=== PATIENT | male | born 1955 | race Caucasian/White ===

== ENCOUNTER 2017-10-15 13:09 | Inpatient (IN) | payer OTHER ==
--- NOTE | 2017-10-15 14:53 | ER Document Report ---
ED Medical Screen (RME) - General Chief Complaint: Breathing Difficulty Stated Complaint: DIFFICULTY BREATHING Time Seen by Provider: 10/15/17 14:45 Notes: 62-year-old male patient with no past medical history reports coughing for the past 6 days. This started on Sunday, he went to an urgent care on and was told he had congestive heart failure and was prescribed Zithromax. He did notice today getting ready that he has swelling to his feet and ankles. He does smoke one half packs per day. He drinks 4-5 beers on a daily basis. He is on no regular medications. His exam does suggest some rales in the bases. I have greeted and performed a rapid initial assessment of this patient. A comprehensive ED assessment and evaluation of the patient, analysis of test results and completion of the medical decision making process will be conducted by additional ED providers. TRAVEL OUTSIDE OF THE [place] IN LAST 30 DAYS: No - Related Data Allergies/Adverse Reactions: No Known Allergies Allergy (Verified 10/15/17 13:10) Past Medical History - Social History Chew tobacco use (# tins/day): No Frequency of alcohol use: Heavy Drug Abuse: None Renal/ Medical History: Denies: Hx Peritoneal Dialysis Physical Exam - Vital signs Vitals: Temp Pulse Resp BP Pulse Ox 97.7 F 83 20 125/51 L 100 10/15/17 13:15 10/15/17 13:15 10/15/17 13:15 10/15/17 13:15 10/15/17 13:15 Course - Vital Signs Vital signs: Temp Pulse Resp BP Pulse Ox 97.7 F 83 20 125/51 L 100 10/15/17 13:15 10/15/17 13:15 10/15/17 13:15 10/15/17 13:15 10/15/17 13:15
[2017-10-15 15:32] LABS: ABSOLUTE BASOPHILS # (AUTO) 0.1 10^3/uL (0.0-0.2); ABSOLUTE EOSINOPHILS # (AUTO) 0.1 10^3/uL (0.0-0.6); ABSOLUTE LYMPHOCYTES (AUTO) 1.9 10^3/uL (0.5-4.7); ABSOLUTE MONOCYTES (AUTO) 0.9 10^3/uL (0.1-1.4); ABSOLUTE NEUT (AUTO) 11.4 10^3/uL (1.7-8.2); BASOPHILS % (AUTO) 0.5 % (0-2); EOSINOPHILS % (AUTO) 0.4 % (0-6); HEMATOCRIT 45.6 % (37.9-51.0); HEMOGLOBIN 15.7 g/dL (13.5-17.0); LYMPHOCYTES % (AUTO) 13.2 % (13-45); MEAN CORPUSCULAR HEMOGLOBIN 31.9 pg (27.0-33.4); MEAN CORPUSCULAR HGB CONC 34.4 g/dL (32.0-36.0); MEAN CORPUSCULAR VOLUME 93 fl (80-97); MONOCYTES % (AUTO) 6.5 % (3-13); PLATELET COUNT 154 10^3/uL (150-450); RED BLOOD COUNT 4.92 10^6/uL (4.35-5.55); RED CELL DISTRIBUTION WIDTH 14.6 % (11.5-14.0); SEGMENTED NEUTROPHILS % (AUTO) 79.4 % (42-78); TOTAL CELLS COUNTED % (AUTO) 100 %; WHITE BLOOD COUNT 14.4 10^3/uL (4.0-10.5)
[2017-10-15 15:41] LABS: ALBUMIN 3.8 g/dL (3.5-5.0); ALKALINE PHOSPHATASE 246 U/L (38-126); BILIRUBIN,DIRECT 1.7 mg/dL (0.0-0.4); BILIRUBIN,TOTAL 2.7 mg/dL (0.2-1.3); BLOOD UREA NITROGEN 60 mg/dL (7-20); CARBON DIOXIDE 26 mmol/L (22-30); CHLORIDE 79 mmol/L (98-107); CREATINE KINASE 398 U/L (55-170); GLUCOSE 77 mg/dL (75-110); MAGNESIUM 2.6 mg/dL (1.6-2.3); POTASSIUM 4.8 mmol/L (3.6-5.0); TOTAL PROTEIN 6.6 g/dL (6.3-8.2)
[2017-10-15 15:48] LABS: ANION GAP 12 (5-19)
[2017-10-15 15:53] LABS: CREATINE KINASE MB 11.9 ng/mL (<4.55)
[2017-10-15 15:57] LABS: TROPONIN I 0.086 ng/mL
--- NOTE | 2017-10-15 16:03 | RADIOLOGY REPORT (SQ) ---
EXAM DESCRIPTION: CHEST PA/LAT COMPLETED DATE/TIME: 10/15/2017 3:48 pm REASON FOR STUDY: Cough, rales, peripheral edema COMPARISON: None. NUMBER OF VIEWS: Two views. TECHNIQUE: Frontal and lateral radiographic views of the chest acquired. LIMITATIONS: None. FINDINGS: LUNGS AND PLEURA: Mild diffuse interstitial edema with more focal right lower lobe airspac e disease with small right pleural effusion. Left pleural spaces clear. MEDIASTINUM AND HILAR STRUCTURES: No masses or contour abnormality. HEART AND VASCULAR STRUCTURES: Cardiac enlargement. Vascular congestion. BONES: No acute findings. HARDWARE: None in the chest. OTHER: No other significant finding. LUNGS AND PLEURA: Right lower lobe airspace disease with small pleural effusion. IMPRESSION: MILD INTERSTITIAL EDEMA WITH ADDITIONAL RIGHT LOWER LOBE AIRSPACE DISEASE AND SMALL RIGH T PLEURAL EFFUSION MAY REPRESENT SUBSEGMENTAL ATELECTASIS OR SUPERIMPOSED PNEUMONIA. TECHNICAL DOCUMENTATION: JOB ID: [id number] [employer]- All Rights Reserved
[2017-10-15 16:09] LABS: ALANINE AMINOTRANSFERASE 3125 U/L (21-72); ASPARTATE AMINO TRANSFERASE 2430 U/L (17-59)
[2017-10-15 16:11] LABS: SODIUM 117.2 mmol/L (137-145)
[2017-10-15] MEDS ORDERED: FUROSEMIDE INJ/PF 40 MG/4 ML SDV IV ONE (16:24)
--- NOTE | 2017-10-15 16:27 | ER Document Report ---
ED Respiratory Problem - General Chief Complaint: Breathing Difficulty Stated Complaint: DIFFICULTY BREATHING Time Seen by Provider: 10/15/17 14:45 Mode of Arrival: Ambulatory Information source: Patient Notes: Patient is a 62-year-old male who presents to the ER today for shortness of breath times 6 days with productive cough. Patient states he went to the urgent care and was told he had congestive heart failure and was placed on azithromycin. Patient states that his shortness of breath has continued and that he has swelling in his lower extremities. He does not go to doctors, has not been to a doctor in many years and does not take any medicines on a daily basis. He denies any chest pain or nausea. He admits to drinking 4-5 beers every day. He last drank this morning. TRAVEL OUTSIDE OF THE [place] IN LAST 30 DAYS: No - Related Data Allergies/Adverse Reactions: No Known Allergies Allergy (Verified 10/15/17 13:10) Past Medical History - General Information source: Patient - Social History Smoking Status: Current Every Day Smoker Chew tobacco use (# tins/day): No Frequency of alcohol use: Heavy Drug Abuse: None Family History: Reviewed & Not Pertinent Patient has suicidal ideation: No Patient has homicidal ideation: No Renal/ Medical History: Denies: Hx Peritoneal Dialysis Review of Systems - Review of Systems Constitutional: See HPI EENT: No symptoms reported Cardiovascular: No symptoms reported Respiratory: See HPI Gastrointestinal: No symptoms reported Genitourinary: No symptoms reported Male Genitourinary: No symptoms reported Musculoskeletal: No symptoms reported Skin: See HPI Hematologic/Lymphatic: No symptoms reported Neurological/Psychological: See HPI Physical Exam - Vital signs Vitals: Temp Pulse Resp BP Pulse Ox 97.7 F 83 20 125/51 L 100 10/15/17 13:15 10/15/17 13:15 10/15/17 13:15 10/15/17 13:15 10/15/17 13:15 - Notes Notes: PHYSICAL EXAMINATION: GENERAL: Chronically ill-appearing, but in no acute distress. HEAD: Atraumatic, normocephalic. EYES: Pupils equal round and reactive to light, extraocular movements intact, sclera anicteric, conjunctiva are normal. ENT: ear canals without erythema or foreign body, TMs pearly holley with good bony landmarks, nares patent, oropharynx clear without exudates. Moist mucous membranes. NECK: Normal range of motion, supple without lymphadenopathy LUNGS: Rales appreciated in bilateral lower lobes,No wheezes or rhonchi. HEART: Regular rate and rhythm without murmurs ABDOMEN: Soft, no tenderness. No guarding, no rebound BACK: no vertebral tenderness, normal ROM GI/: no CVA tenderness EXTREMITIES: Normal range of motion, no pitting edema. No cyanosis. NEUROLOGICAL: Cranial nerves grossly intact. Normal sensory/motor exams. PSYCH: Normal mood, normal affect. SKIN: Warm, Dry, normal turgor, 1+ pitting edema to bilateral lower extremities Course - Re-evaluation Re-evalutation: 10/15/17 18:00 Patient has a white count of 14.4, sodium of 117, mild edema with possible pneumonia on chest x-ray, pitting edema to the lower extremities. I have started him on Lasix. Patient also has elevated AST and ALT in the 1999s and 3000s. Hepatitis panel at this time has been ordered, right upper quadrant ultrasound to evaluate his liver. BNP is 9500. Troponin is elevated but expected with congestive heart failure and this BNP. Patient denies any chest pain. Patient admitted to Dr. thomas who accepts admission at this time. - Vital Signs Vital signs: Temp Pulse Resp BP Pulse Ox 97.7 F 83 20 125/51 L 100 10/15/17 13:15 10/15/17 13:15 10/15/17 13:15 10/15/17 13:15 10/15/17 13:15 - Laboratory Result Diagrams: 10/15/17 15:18 10/15/17 15:18 Laboratory results interpreted by me: 10/15/17 10/15/17 10/15/17 15:18 15:18 15:18 WBC 14.4 H RDW 14.6 H Seg Neutrophils % 79.4 H Absolute Neutrophils 11.4 H Sodium 117.2 L* Chloride 79 L BUN 60 H Magnesium 2.6 H Total Bilirubin 2.7 H Direct Bilirubin 1.7 H AST 2430 H ALT 3125 H Alkaline Phosphatase 246 H Creatine Kinase 398 H CK-MB (CK-2) 11.90 H NT-Pro-B Natriuret Pep 9510 H Discharge - Discharge Clinical Impression: Elevated liver enzymes, Hyponatremia CHF (congestive heart failure) Qualifiers: Congestive heart failure type: unspecified congestive heart failure type Congestive heart failure chronicity: chronic Qualified Code(s): I50.9 - Heart failure, unspecified Condition: Stable Disposition: ADMITTED INPATIENT Admitting Provider: Hospitalist - Dr. Thomas Unit Admitted: Telemetry
[2017-10-15] MEDS ORDERED: LORAZEPAM INJ 2 MG/1 ML VIAL IV PRN (17:49)
[2017-10-15] MEDS ORDERED: OXYCODONE-ACETAMINOPHEN 5-325 MG TABLET PO PRN (17:49)
[2017-10-15] MEDS ORDERED: ALBUTEROL SULFATE 0.083% NEB 2.5 MG/3 ML AMPUL NEB PRN (17:49)
[2017-10-15] MEDS ORDERED: NORMAL SALINE 1000 ML 1,000 ML IV PRN ×2 (17:49→20:04)
[2017-10-15] MEDS ORDERED: ONDANSETRON HCL INJ/PF 4 MG/2 ML SDV IV PRN (17:49)
[2017-10-15] MEDS ORDERED: THIAMINE HCL INJ 200 MG/2 ML VIAL IM ONE (17:49)
[2017-10-15] MEDS ORDERED: ACETAMINOPHEN 325 MG TABLET PO PRN (17:49)
[2017-10-15] MEDS ORDERED: DIAZEPAM 5 MG TABLET PO SCH (18:00)
[2017-10-15] MEDS ORDERED: MULTIVITAMIN TABLET PO ONE (18:30)
[2017-10-15] MEDS ORDERED: NICOTINE 21 MG/24 HR PATCH.TD24 TD ONE (18:30)
[2017-10-15 18:32] LABS: INTERNATIONAL RATION (INR) 1.51; PROTHROMBIN TIME 19.2 SEC (11.4-15.4)
--- NOTE | 2017-10-15 18:44 | PDOC H&P ---
History of Present Illness Admission Date/PCP: 10/15/17 16:55 Patient complains of: Shortness of breath and cough for several days History of Present Illness: SONA JAQUEZ is a 62 year old male presented to emergency room after was advised by a local urgent care to come to emergency room for further evaluation. Patient stated that he had been having shortness of breath, productive cough, weakness for several days. He was initially placed on an antibiotic which appears to be Zithromax. Since he did not improve returned back to urgent care and was told he needed to come to urgent care for further evaluation. At that time it was noted that his legs were swollen however patient is unable to tell how long he has been having swelling of his legs. He admits that he had been sleeping close to an burner. When he coughs he is experiencing pain in the right thigh. He admits that he smokes 1-1/2 pack of cigarettes daily and has been going on for the past 35 years. He also drinks around 8 beers daily. He also admits that if he does drink on a daily basis he gets the shakes. He denies any medical illnesses. Patient also complains of pain in the right side of his stomach When evaluated in the emergency room there were multiple abnormalities prompted to consult the hospitalist service and open evaluation prompted to admit for further evaluation and management Past Medical History Cardiac Medical History: Reports: None Pulmonary Medical History: Reports: None EENT Medical History: Reports: None Neurological Medical History: Reports: None Endocrine Medical History: Reports: None Renal/ Medical History: Reports: None Malignancy Medical History: Reports: None GI Medical History: Reports: None Musculoskeltal Medical History: Reports: None Skin Medical History: Reports: None Psychiatric Medical History: Reports: None Traumatic Medical History: Reports: None Hematology: Reports: None Infectious Medical History: Reports: None Past Surgical History Past Surgical History: Reports: None Social History Information Source: Patient Lives with: Alone Smoking Status: Current Every Day Smoker Cigarettes Packs Per Day: 1.5 Number of Years Smokin Frequency of Alcohol Use: Heavy Amount of Alcoholic Beverages Per Day: 8 beers/day Hx Recreational Drug Use: No Drugs: None Hx Prescription Drug Abuse: No - Advance Directive Resuscitation Status: Full Code Family History Family History: Malignancy Parental Family History Reviewed: Yes Children Family History Reviewed: Yes Sibling(s) Family History Reviewed.: Yes Medication/Allergy Allergies/Adverse Reactions: No Known Allergies Allergy (Verified 10/15/17 13:10) Review of Systems Constitutional: PRESENT: weakness Eyes: ABSENT: visual disturbances Ears: ABSENT: hearing changes Nose, Mouth, and Throat: ABSENT: mouth pain, sore throat Cardiovascular: PRESENT: dyspnea on exertion. ABSENT: chest pain Respiratory: PRESENT: cough, dyspnea Gastrointestinal: PRESENT: abdominal pain. ABSENT: nausea, vomiting Musculoskeletal: PRESENT: deformity, muscle weakness, other - right thigh pain Neurological: PRESENT: weakness Physical Exam Vital Signs: Temp Pulse Resp BP Pulse Ox 97.7 F 83 20 125/51 L 100 10/15/17 13:15 10/15/17 13:15 10/15/17 13:15 10/15/17 13:15 10/15/17 13:15 General appearance: PRESENT: no acute distress, cooperative, thin Head exam: PRESENT: atraumatic, normocephalic Eye exam: PRESENT: conjunctiva pink, EOMI, PERRLA. ABSENT: periorbital swelling Ear exam: PRESENT: normal external ear exam. ABSENT: bleeding Mouth exam: PRESENT: dry mucosa, neck supple Neck exam: PRESENT: full ROM. ABSENT: JVD, lymphadenopathy, tenderness, thyromegaly Respiratory exam: PRESENT: decreased breath sounds, rhonchi. ABSENT: tachypnea , unlabored, wheezes Cardiovascular exam: PRESENT: RRR. ABSENT: diastolic murmur, systolic murmur Vascular exam: PRESENT: normal capillary refill GI/Abdominal exam: PRESENT: normal bowel sounds, soft, tenderness - Right upper quadrant tenderness with guarding Gentrourinary exam: ABSENT: scrotal swelling, testicular tenderness Extremities exam: PRESENT: full ROM, +2 edema, other - There is redness noted to medial aspect of right and left lower extremity Neurological exam: PRESENT: alert, awake, oriented to person, oriented to place , oriented to time Psychiatric exam: PRESENT: appropriate affect, normal mood Skin exam: PRESENT: mottled Results Impressions: Chest X-Ray 10/15/17 14:50 IMPRESSION: MILD INTERSTITIAL EDEMA WITH ADDITIONAL RIGHT LOWER LOBE AIRSPACE DISEASE AND SMALL RIGHT PLEURAL EFFUSION MAY REPRESENT SUBSEGMENTAL ATELECTASIS OR SUPERIMPOSED PNEUMONIA. Assessment & Plan - Diagnosis (1) Alcoholic cirrhosis of liver Qualifiers: Ascites presence: without ascites Qualified Code(s): K70.30 - Alcoholic cirrhosis of liver without ascites Is this a current diagnosis for this admission?: Yes Plan: Sonogram still pending at the time of dictation. Patient will be started empirically on Trental and Solu-Medrol IV. Will provide pain management. Hepatitis panel had been order in emergency room and pending (2) Alcohol abuse Is this a current diagnosis for this admission?: Yes Plan: Patient states that he gets the shakes if he does not drink on a regular basis. Will order by Valium scheduled and Ativan for breakthrough withdrawal. To order thiamine 200 mg IM 1 then 200 mg p.o. daily and multivitamins (3) Hyponatremia Is this a current diagnosis for this admission?: Yes Plan: Likely due to volume depletion and alcohol abuse. To start gentle hydration. To order BMP every 4 hours and urine osmolality (4) Tobacco abuse Is this a current diagnosis for this admission?: Yes Plan: To order nicotine patch (5) Elevated brain natriuretic peptide (BNP) level Is this a current diagnosis for this admission?: Yes Plan: .Patient appears to be volume depleted and swelling likely secondary to alcoholic disease. I think elevated BNP may relate to pneumonia. To order echocardiogram (6) Hypochloremia Is this a current diagnosis for this admission?: Yes Plan: Due to volume depletion (7) Elevated BUN Is this a current diagnosis for this admission?: Yes Plan: Concern about the possibility of GI bleeding. Patient will be placed on Protonix IV every 12 hours. Will order stool for occult blood. Will order time CBC (8) Pneumonia Qualifiers: Pneumonia type: due to unspecified organism Lung location: unspecified part of lung Is this a current diagnosis for this admission?: Yes Plan: To order lactic acid and to start Levaquin IV. Patient also will be placed on nebulizer treatment since is a smoker (9) Oral thrush Is this a current diagnosis for this admission?: Yes Plan: To start nystatin oral. Will order HIV - Time Time Spent: Greater than 70 Minutes Medications reviewed and adjusted accordingly: Yes Anticipated discharge: Acute Rehab Within: within 72 hours - Inpatient Certification Based on my medical assessment, after consideration of the patient's comorbidities, presenting symptoms, or acuity I expect that the services needed warrant INPATIENT care.: Yes I certify that my determination is in accordance with my understanding of Medicare's requirements for reasonable and necessary INPATIENT services [42 CFR 412.3e].: Yes Medical Necessity: Need for Nebulizer Therapy and Monitoring of Response, Need for Neurological Checks, Need for Pain Control, Need for IV Antibiotics
--- NOTE | 2017-10-15 18:48 | RADIOLOGY REPORT (SQ) ---
EXAM DESCRIPTION: U/S ABDOMEN LIMITED W/O DOP COMPLETED DATE/TIME: 10/15/2017 6:31 pm REASON FOR STUDY: elevated liver enzymes COMPARISON: None. TECHNIQUE: Dynamic and static grayscale images acquired of the abdomen and recorded on PACS. Additio nal selected color Doppler and spectral images recorded. LIMITATIONS: None. FINDINGS: PANCREAS: No masses. Visualized pancreatic duct normal caliber. LIVER: Diffusely echogenic suggesting steatosis. At least 19 cm transverse dimension, enlarged. No focal lesion. LIVER VASCULATURE: Normal directional flow of the main portal vein and hepatic veins. GALLBLADDER: No stones. Normal wall thickness. No pericholecystic fluid. ULTRASOUND-DETECTED ORNELAS'S SIGN: Negative. INTRAHEPATIC DUCTS AND COMMON DUCT: CBD and intrahepatic ducts normal caliber. No filling defects. INFERIOR VENA CAVA: Normal flow. AORTA: No aneurysm. RIGHT KIDNEY: Normal size. Normal echogenicity. No solid or suspicious masses. No hydronephrosis. No calcifications. PERITONEAL AND RIGHT PLEURAL SPACE: There is pleural fluid present. Probable mild ascites. OTHER: Bladder distended. IMPRESSION: Fatty enlarged liver. No acute gallbladder disease. TECHNICAL DOCUMENTATION: JOB ID: [id number] [employer]- All Rights Reserved
[2017-10-15 19:04] LABS: BLOOD UREA NITROGEN 55 mg/dL (7-20); CALCIUM 8.9 mg/dL (8.4-10.2); CARBON DIOXIDE 29 mmol/L (22-30); CHLORIDE 80 mmol/L (98-107); GLUCOSE 75 mg/dL (75-110); POTASSIUM 4.5 mmol/L (3.6-5.0)
[2017-10-15] MEDS: LEVOFLOXACIN 750 MG/D5W RTU 750 MG/150 ML RTUPB IV SCH (19:11)
[2017-10-15] MEDS: NYSTATIN 500000 UNIT/5 ML UDCUP PO SCH ×2 (19:12→23:56)
[2017-10-15] MEDS: METHYLPREDNISOLONE INJ 40 MG/1 ML SDV IV SCH (19:12)
[2017-10-15 19:23] LABS: ANION GAP 12 (5-19)
[2017-10-15 19:25] LABS: SODIUM 120.6 mmol/L (137-145)
[2017-10-15] MEDS: IPRATROPIUM/ALBUTEROL 0.5-2.5 MG/3 ML AMPUL NEB SCH (19:45)
[2017-10-15 20:12] LABS: A TYPE INFLUENZA AG NEGATIVE (NEGATIVE); B INFLUENZA AG NEGATIVE (NEGATIVE)
[2017-10-15 20:24] LABS: ABSOLUTE BASOPHILS # (AUTO) 0.1 10^3/uL (0.0-0.2); ABSOLUTE EOSINOPHILS # (AUTO) 0.1 10^3/uL (0.0-0.6); ABSOLUTE LYMPHOCYTES (AUTO) 1.8 10^3/uL (0.5-4.7); ABSOLUTE MONOCYTES (AUTO) 0.9 10^3/uL (0.1-1.4); ABSOLUTE NEUT (AUTO) 9.6 10^3/uL (1.7-8.2); BASOPHILS % (AUTO) 0.6 % (0-2); EOSINOPHILS % (AUTO) 0.5 % (0-6); HEMATOCRIT 43.2 % (37.9-51.0); HEMOGLOBIN 14.8 g/dL (13.5-17.0); LYMPHOCYTES % (AUTO) 14.5 % (13-45); MEAN CORPUSCULAR HEMOGLOBIN 31.3 pg (27.0-33.4); MEAN CORPUSCULAR HGB CONC 34.2 g/dL (32.0-36.0); MEAN CORPUSCULAR VOLUME 92 fl (80-97); MONOCYTES % (AUTO) 7.3 % (3-13); PLATELET COUNT 151 10^3/uL (150-450); RED BLOOD COUNT 4.71 10^6/uL (4.35-5.55); RED CELL DISTRIBUTION WIDTH 14.4 % (11.5-14.0); SEGMENTED NEUTROPHILS % (AUTO) 77.1 % (42-78); TOTAL CELLS COUNTED % (AUTO) 100 %; WHITE BLOOD COUNT 12.4 10^3/uL (4.0-10.5)
[2017-10-15 20:43] LABS: ANION GAP 11 (5-19); BLOOD UREA NITROGEN 52 mg/dL (7-20); CALCIUM 8.7 mg/dL (8.4-10.2); CARBON DIOXIDE 29 mmol/L (22-30); CHLORIDE 81 mmol/L (98-107); GLUCOSE 75 mg/dL (75-110); POTASSIUM 4.1 mmol/L (3.6-5.0); SODIUM 121.2 mmol/L (137-145)
[2017-10-15] MEDS ORDERED: 1/2 NORMAL SALINE 1,000 ML IV PRN (21:11)
[2017-10-15] MEDS ORDERED: PENTOXIFYLLINE 400 MG TABLET.SA PO ONE (22:54)
[2017-10-15] MEDS: PANTOPRAZOLE SODIUM 40 MG VIAL IV SCH (22:59)
[2017-10-15] MEDS: PENTOXIFYLLINE 400 MG TABLET.SA PO SCH (22:59)
[2017-10-15] MEDS: DIAZEPAM 5 MG TABLET PO SCH (23:01)
[2017-10-15 23:22] LABS: URINE AMPHETAMINES SCREEN NEGATIVE; URINE BARBITURATES SCREEN NEGATIVE; URINE BENZODIAZEPINES SCREEN NEGATIVE; URINE COCAINE SCREEN NEGATIVE; URINE MARIJUANA (THC) SCREEN NEGATIVE; URINE METHADONE SCREEN NEGATIVE; URINE PHENCYCLIDINE SCREEN NEGATIVE
[2017-10-16] MEDS ORDERED: INFLUENZA ADLT QUAD (36MOS+) 2017-18 VAC 0.5 ML SYR IM PRN (00:18)
[2017-10-16 00:44] LABS: HEMATOCRIT 43.1 % (37.9-51.0); HEMOGLOBIN 14.6 g/dL (13.5-17.0); MEAN CORPUSCULAR HEMOGLOBIN 31.4 pg (27.0-33.4); MEAN CORPUSCULAR VOLUME 92 fl (80-97); PLATELET COUNT 146 10^3/uL (150-450); RED BLOOD COUNT 4.66 10^6/uL (4.35-5.55); RED CELL DISTRIBUTION WIDTH 14.5 % (11.5-14.0); WHITE BLOOD COUNT 10.1 10^3/uL (4.0-10.5)
[2017-10-16 01:02] LABS: ABSOLUTE LYMPHOCYTES# (MANUAL) 0.4 10^3/uL (0.5-4.7); ABSOLUTE MONOCYTES # (MANUAL) 0.1 10^3/uL (0.1-1.4); ABSOLUTE NEUTROPHILS# (MANUAL) 9.6 10^3/uL (1.7-8.2); BASOPHILS % (MANUAL) 0 % (0-2); EOSINOPHILS % (MANUAL) 0 % (0-6); LYMPHOCYTES % (MANUAL) 3 % (13-45); MONOCYTES % (MANUAL) 1 % (3-13); SEGMENTED NEUTROPHILS % (MAN) 95 % (42-78); TOTAL CELLS COUNTED 100
[2017-10-16 01:04] LABS: ANISOCYTOSIS SLIGHT; POLYCHROMASIA SLIGHT; TOXIC GRANULATION 2+; TOXIC VACUOLATION PRESENT
[2017-10-16 01:05] LABS: PLATELET COMMENT ADEQUATE; PLATELET LARGE PRESENT
[2017-10-16 01:31] LABS: ALBUMIN 3.2 g/dL (3.5-5.0); ALKALINE PHOSPHATASE 202 U/L (38-126); ANION GAP 8 (5-19); BILIRUBIN,DIRECT 1.5 mg/dL (0.0-0.4); BILIRUBIN,TOTAL 2.3 mg/dL (0.2-1.3); BLOOD UREA NITROGEN 48 mg/dL (7-20); CALCIUM 8.3 mg/dL (8.4-10.2); CARBON DIOXIDE 32 mmol/L (22-30); CHLORIDE 83 mmol/L (98-107); GLUCOSE 96 mg/dL (75-110); POTASSIUM 4.7 mmol/L (3.6-5.0); SODIUM 122.8 mmol/L (137-145); TOTAL PROTEIN 6.1 g/dL (6.3-8.2)
[2017-10-16 01:48] LABS: ASPARTATE AMINO TRANSFERASE 1493 U/L (17-59)
[2017-10-16 02:01] LABS: ALANINE AMINOTRANSFERASE 2385 U/L (21-72)
[2017-10-16] MEDS: DEXTROSE 5%-WATER 1000 ML 1,000 ML IV PRN ×2 (03:14→18:11)
[2017-10-16 05:09] LABS: HEMATOCRIT 41.6 % (37.9-51.0); HEMOGLOBIN 14.1 g/dL (13.5-17.0); MEAN CORPUSCULAR HEMOGLOBIN 31.7 pg (27.0-33.4); MEAN CORPUSCULAR HGB CONC 33.9 g/dL (32.0-36.0); MEAN CORPUSCULAR VOLUME 94 fl (80-97); PLATELET COUNT 140 10^3/uL (150-450); RED BLOOD COUNT 4.45 10^6/uL (4.35-5.55); RED CELL DISTRIBUTION WIDTH 14.7 % (11.5-14.0); WHITE BLOOD COUNT 8.8 10^3/uL (4.0-10.5)
[2017-10-16] MEDS: METHYLPREDNISOLONE INJ 40 MG/1 ML SDV IV SCH ×2 (05:18→17:41)
[2017-10-16] MEDS: DIAZEPAM 5 MG TABLET PO SCH ×4 (05:18→23:45)
[2017-10-16] MEDS: NYSTATIN 500000 UNIT/5 ML UDCUP PO SCH ×4 (05:19→23:45)
[2017-10-16 05:30] LABS: ALBUMIN 3.1 g/dL (3.5-5.0); ALKALINE PHOSPHATASE 207 U/L (38-126); ANION GAP 12 (5-19); BILIRUBIN,DIRECT 1.4 mg/dL (0.0-0.4); BILIRUBIN,TOTAL 2.3 mg/dL (0.2-1.3); BLOOD UREA NITROGEN 40 mg/dL (7-20); CALCIUM 8.3 mg/dL (8.4-10.2); CARBON DIOXIDE 26 mmol/L (22-30); CHLORIDE 85 mmol/L (98-107); GLUCOSE 107 mg/dL (75-110); MAGNESIUM 2.3 mg/dL (1.6-2.3); POTASSIUM 4.4 mmol/L (3.6-5.0); SODIUM 123.1 mmol/L (137-145); TOTAL PROTEIN 5.6 g/dL (6.3-8.2)
[2017-10-16 05:35] LABS: ABSOLUTE LYMPHOCYTES# (MANUAL) 0.3 10^3/uL (0.5-4.7); ABSOLUTE MONOCYTES # (MANUAL) 0.2 10^3/uL (0.1-1.4); ABSOLUTE NEUTROPHILS# (MANUAL) 8.4 10^3/uL (1.7-8.2); BAND NEUTROPHILS % (MANUAL) 1 % (3-5); BASOPHILS % (MANUAL) 0 % (0-2); EOSINOPHILS % (MANUAL) 0 % (0-6); LYMPHOCYTES % (MANUAL) 3 % (13-45); MONOCYTES % (MANUAL) 2 % (3-13); SEGMENTED NEUTROPHILS % (MAN) 94 % (42-78); TOTAL CELLS COUNTED 100
[2017-10-16 05:36] LABS: POLYCHROMASIA SLIGHT; TOXIC GRANULATION SLIGHT
[2017-10-16 05:37] LABS: ANISOCYTOSIS SLIGHT; PLATELET COMMENT ADEQUATE; PLATELET LARGE PRESENT
[2017-10-16 05:46] LABS: ASPARTATE AMINO TRANSFERASE 1371 U/L (17-59)
[2017-10-16 05:59] LABS: ALANINE AMINOTRANSFERASE 2274 U/L (21-72)
[2017-10-16] MEDS: IPRATROPIUM/ALBUTEROL 0.5-2.5 MG/3 ML AMPUL NEB SCH ×3 (08:05→19:56)
--- NOTE | 2017-10-16 09:28 | EKG REPORT ---
SEVERITY:- ABNORMAL ECG - SINUS RHYTHM PAIRED VENTRICULAR PREMATURE COMPLEXES ABERRANT COMPLEX PROBABLE LEFT ATRIAL ABNORMALITY NONSPECIFIC IVCD WITH LAD LVH WITH SECONDARY REPOLARIZATION ABNORMALITY : Confirmed by: Malena Craven 16-Oct-2017 09:28:21
[2017-10-16] MEDS: THIAMINE HCL 100 MG TABLET PO SCH (09:46)
[2017-10-16] MEDS: PANTOPRAZOLE SODIUM 40 MG VIAL IV SCH ×2 (09:47→23:46)
[2017-10-16] MEDS: NICOTINE 21 MG/24 HR PATCH.TD24 TD SCH (09:47)
[2017-10-16] MEDS: MULTIVITAMIN TABLET PO SCH (09:47)
[2017-10-16] MEDS: DOCUSATE SODIUM 100 MG CAPSULE PO SCH (09:47)
[2017-10-16] MEDS ORDERED: LORAZEPAM INJ 2 MG/1 ML VIAL IV PRN (10:00)
[2017-10-16] MEDS ORDERED: ONDANSETRON HCL INJ/PF 4 MG/2 ML SDV IV PRN (10:00)
[2017-10-16] MEDS ORDERED: ALBUTEROL SULFATE 0.083% NEB 2.5 MG/3 ML AMPUL NEB PRN (10:00)
[2017-10-16] MEDS ORDERED: ACETAMINOPHEN 325 MG TABLET PO PRN (10:00)
[2017-10-16 10:01] LABS: ABSOLUTE LYMPHOCYTES (AUTO) 0.5 10^3/uL (0.5-4.7); ABSOLUTE MONOCYTES (AUTO) 0.3 10^3/uL (0.1-1.4); ABSOLUTE NEUT (AUTO) 7.4 10^3/uL (1.7-8.2); BASOPHILS % (AUTO) 0.2 % (0-2); HEMATOCRIT 41.2 % (37.9-51.0); HEMOGLOBIN 14.1 g/dL (13.5-17.0); LYMPHOCYTES % (AUTO) 6.3 % (13-45); MEAN CORPUSCULAR HEMOGLOBIN 31.7 pg (27.0-33.4); MEAN CORPUSCULAR HGB CONC 34.1 g/dL (32.0-36.0); MEAN CORPUSCULAR VOLUME 93 fl (80-97); MONOCYTES % (AUTO) 3.3 % (3-13); PLATELET COUNT 138 10^3/uL (150-450); RED BLOOD COUNT 4.44 10^6/uL (4.35-5.55); RED CELL DISTRIBUTION WIDTH 14.6 % (11.5-14.0); SEGMENTED NEUTROPHILS % (AUTO) 90.2 % (42-78); TOTAL CELLS COUNTED % (AUTO) 100 %; WHITE BLOOD COUNT 8.3 10^3/uL (4.0-10.5)
[2017-10-16 10:22] LABS: ANION GAP 9 (5-19); BLOOD UREA NITROGEN 36 mg/dL (7-20); CALCIUM 8.4 mg/dL (8.4-10.2); CARBON DIOXIDE 28 mmol/L (22-30); CHLORIDE 85 mmol/L (98-107); GLUCOSE 129 mg/dL (75-110); POTASSIUM 4.2 mmol/L (3.6-5.0); SODIUM 122.4 mmol/L (137-145)
[2017-10-16] MEDS: PENTOXIFYLLINE 400 MG TABLET.SA PO SCH ×3 (10:42→17:43)
[2017-10-16 11:30] LABS: ARTERIAL BLOOD BASE EXCESS 4.4 mmol/L; ARTERIAL BLOOD H2CO3 1.11 mmol/L (1.05-1.35); ARTERIAL BLOOD HCO3 27.7 mmol/L (20-26); ARTERIAL BLOOD O2 SATURATION 92.3 % (94-98); ARTERIAL BLOOD PCO2 36.8 mmHg (35-45); ARTERIAL BLOOD PH 7.49 (7.35-7.45); ARTERIAL BLOOD PO2 57.9 mmHg (80-100); ARTERIAL BLOOD TOTAL CO2 28.8 mmol/L (23-27)
[2017-10-16 11:31] LABS: ARTERIAL BLOOD FIO2 21%
--- NOTE | 2017-10-16 11:54 | PDOC PROGRESS REPORT ---
Subjective Progress Note for:: 10/16/17 Subjective:: Patient is sedated but arousable Reason For Visit: PNEUMONIA, ALCOHOLIC HEPATITIS, HYPONATREMIA Physical Exam Vital Signs: Temp Pulse Resp BP Pulse Ox 97.7 F 76 18 112/60 92 10/16/17 07:18 10/16/17 08:05 10/16/17 08:05 10/16/17 07:18 10/16/17 08:05 Intake & Output 10/15/17 10/16/17 10/17/17 06:59 06:59 06:59 Intake Total 699 Output Total 700 Balance -1 Weight 79.1 kg General appearance: PRESENT: no acute distress Head exam: PRESENT: atraumatic, normocephalic Eye exam: PRESENT: conjunctiva pink. ABSENT: scleral icterus Mouth exam: PRESENT: moist, tongue midline Neck exam: ABSENT: JVD Respiratory exam: PRESENT: clear to auscultation anand. ABSENT: rales, rhonchi, wheezes Cardiovascular exam: PRESENT: RRR. ABSENT: diastolic murmur, rubs, systolic murmur GI/Abdominal exam: PRESENT: normal bowel sounds, soft. ABSENT: distended, guarding, mass, organolmegaly, rebound, tenderness Rectal exam: PRESENT: deferred Extremities exam: ABSENT: calf tenderness, clubbing, pedal edema Neurological exam: PRESENT: altered, oriented to person. ABSENT: oriented to place, oriented to time, oriented to situation Psychiatric exam: PRESENT: flat affect Skin exam: PRESENT: dry, intact, warm. ABSENT: cyanosis, rash Results Laboratory Results: 10/16/17 09:44 10/16/17 09:44 10/15/17 10/15/17 10/15/17 18:35 18:35 20:00 WBC RBC Hgb Hct MCV MCH MCHC RDW Plt Count Seg Neutrophils % Lymphocytes % Monocytes % Eosinophils % Basophils % Absolute Neutrophils Absolute Lymphocytes Absolute Monocytes Absolute Eosinophils Absolute Basophils Carbonic Acid HCO3/H2CO3 Ratio ABG pH ABG pCO2 ABG pO2 ABG HCO3 ABG O2 Saturation ABG Base Excess FiO2 Sodium 120.6 L* 121.2 L Potassium 4.5 4.1 Chloride 80 L 81 L Carbon Dioxide 29 29 Anion Gap 12 11 BUN 55 H 52 H Creatinine 1.02 0.95 Est GFR ( Amer) > 60 > 60 Est GFR (Non-Af Amer) > 60 > 60 Glucose 75 75 Calcium 8.9 8.7 Phosphorus Magnesium Total Bilirubin AST ALT Alkaline Phosphatase Ammonia < 8.7 L Total Protein Albumin [facility] 10/15/17 10/16/17 10/16/17 20:00 00:24 00:24 WBC 12.4 H 10.1 RBC 4.71 4.66 Hgb 14.8 14.6 Hct 43.2 43.1 MCV 92 92 MCH 31.3 31.4 MCHC 34.2 34.0 RDW 14.4 H 14.5 H Plt Count 151 146 L Seg Neutrophils % 77.1 Not Reportable Lymphocytes % 14.5 Not Reportable Monocytes % 7.3 Not Reportable Eosinophils % 0.5 Not Reportable Basophils % 0.6 Not Reportable Absolute Neutrophils 9.6 H Not Reportable Absolute Lymphocytes 1.8 Not Reportable Absolute Monocytes 0.9 Not Reportable Absolute Eosinophils 0.1 Not Reportable Absolute Basophils 0.1 Not Reportable Carbonic Acid HCO3/H2CO3 Ratio ABG pH ABG pCO2 ABG pO2 ABG HCO3 ABG O2 Saturation ABG Base Excess FiO2 Sodium 122.8 L Potassium 4.7 Chloride 83 L Carbon Dioxide 32 H Anion Gap 8 BUN 48 H Creatinine 0.83 Est GFR ( Amer) > 60 Est GFR (Non-Af Amer) > 60 Glucose 96 Calcium 8.3 L Phosphorus Magnesium Total Bilirubin 2.3 H AST 1493 H ALT 2385 H Alkaline Phosphatase 202 H Ammonia Total Protein 6.1 L Albumin 3.2 L [facility] 10/16/17 10/16/17 10/16/17 04:15 04:15 04:15 WBC 8.8 RBC 4.45 Hgb 14.1 Hct 41.6 MCV 94 MCH 31.7 MCHC 33.9 RDW 14.7 H Plt Count 140 L Seg Neutrophils % Not Reportable Lymphocytes % Not Reportable Monocytes % Not Reportable Eosinophils % Not Reportable Basophils % Not Reportable Absolute Neutrophils Not Reportable Absolute Lymphocytes Not Reportable Absolute Monocytes Not Reportable Absolute Eosinophils Not Reportable Absolute Basophils Not Reportable Carbonic Acid HCO3/H2CO3 Ratio ABG pH ABG pCO2 ABG pO2 ABG HCO3 ABG O2 Saturation ABG Base Excess FiO2 Sodium 123.1 L Potassium 4.4 Chloride 85 L Carbon Dioxide 26 Anion Gap 12 BUN 40 H Creatinine 0.78 Est GFR ( Amer) > 60 Est GFR (Non-Af Amer) > 60 Glucose 107 Calcium 8.3 L Phosphorus 3.0 Magnesium 2.3 Total Bilirubin 2.3 H AST 1371 H ALT 2274 H Alkaline Phosphatase 207 H Ammonia Total Protein 5.6 L Albumin 3.1 L TSH 1.67 10/16/17 10/16/17 10/16/17 09:44 09:44 11:05 WBC 8.3 RBC 4.44 Hgb 14.1 Hct 41.2 MCV 93 MCH 31.7 MCHC 34.1 RDW 14.6 H Plt Count 138 L Seg Neutrophils % 90.2 H Lymphocytes % 6.3 L Monocytes % 3.3 Eosinophils % 0.0 Basophils % 0.2 Absolute Neutrophils 7.4 Absolute Lymphocytes 0.5 Absolute Monocytes 0.3 Absolute Eosinophils 0.0 Absolute Basophils 0.0 Carbonic Acid 1.11 HCO3/H2CO3 Ratio 24:1 ABG pH 7.49 H ABG pCO2 36.8 ABG pO2 57.9 L ABG HCO3 27.7 H ABG O2 Saturation 92.3 L ABG Base Excess 4.4 FiO2 21% Sodium 122.4 L Potassium 4.2 Chloride 85 L Carbon Dioxide 28 Anion Gap 9 BUN 36 H Creatinine 0.78 Est GFR ( Amer) > 60 Est GFR (Non-Af Amer) > 60 Glucose 129 H Calcium 8.4 Phosphorus Magnesium Total Bilirubin AST ALT Alkaline Phosphatase Ammonia Total Protein Albumin TSH 10/15/17 10/16/17 18:35 00:24 Troponin I 0.079 0.069 Impressions: Chest X-Ray 10/15/17 14:50 IMPRESSION: MILD INTERSTITIAL EDEMA WITH ADDITIONAL RIGHT LOWER LOBE AIRSPACE DISEASE AND SMALL RIGHT PLEURAL EFFUSION MAY REPRESENT SUBSEGMENTAL ATELECTASIS OR SUPERIMPOSED PNEUMONIA. Abdomen Ultrasound 10/15/17 16:23 IMPRESSION: Fatty enlarged liver. No acute gallbladder disease. Assessment & Plan - Diagnosis (1) Pneumonia Qualifiers: Pneumonia type: due to unspecified organism Lung location: unspecified part of lung Is this a current diagnosis for this admission?: Yes Plan: Patient is on Levaquin. Cultures are negative so far. (2) Alcoholic cirrhosis of liver Qualifiers: Ascites presence: without ascites Qualified Code(s): K70.30 - Alcoholic cirrhosis of liver without ascites Is this a current diagnosis for this admission?: Yes Plan: He is sedated and has been getting scheduled Ativan for DTs treatment. We will decrease strength as he appears to be slightly sedated. (3) CHF (congestive heart failure) Qualifiers: Congestive heart failure type: unspecified congestive heart failure type Congestive heart failure chronicity: chronic Qualified Code(s): I50.9 - Heart failure, unspecified Is this a current diagnosis for this admission?: Yes Plan: Patient has an elevated BNP but clinically appears to be euvolemic. (4) Elevated brain natriuretic peptide (BNP) level Is this a current diagnosis for this admission?: Yes Plan: Patient is clinically euvolemic (5) Hyponatremia Is this a current diagnosis for this admission?: Yes Plan: Secondary to liver disease. (6) Tobacco abuse Is this a current diagnosis for this admission?: Yes - Time Time Spent with patient: 25-34 minutes - Inpatient Certification Medical Necessity: Need Close Monitoring Due to Risk of Patient Decompensation, Need for IV Antibiotics
[2017-10-16 13:14] LABS: ABSOLUTE LYMPHOCYTES (AUTO) 0.7 10^3/uL (0.5-4.7); ABSOLUTE MONOCYTES (AUTO) 0.3 10^3/uL (0.1-1.4); ABSOLUTE NEUT (AUTO) 8.2 10^3/uL (1.7-8.2); BASOPHILS % (AUTO) 0.1 % (0-2); EOSINOPHILS % (AUTO) 0.1 % (0-6); HEMATOCRIT 43.8 % (37.9-51.0); HEMOGLOBIN 14.7 g/dL (13.5-17.0); LYMPHOCYTES % (AUTO) 7.4 % (13-45); MEAN CORPUSCULAR HEMOGLOBIN 31.7 pg (27.0-33.4); MEAN CORPUSCULAR HGB CONC 33.6 g/dL (32.0-36.0); MEAN CORPUSCULAR VOLUME 94 fl (80-97); MONOCYTES % (AUTO) 3.6 % (3-13); PLATELET COUNT 151 10^3/uL (150-450); RED BLOOD COUNT 4.65 10^6/uL (4.35-5.55); RED CELL DISTRIBUTION WIDTH 14.8 % (11.5-14.0); SEGMENTED NEUTROPHILS % (AUTO) 88.8 % (42-78); TOTAL CELLS COUNTED % (AUTO) 100 %; WHITE BLOOD COUNT 9.2 10^3/uL (4.0-10.5)
[2017-10-16 13:36] LABS: ANION GAP 13 (5-19); BLOOD UREA NITROGEN 33 mg/dL (7-20); CALCIUM 8.6 mg/dL (8.4-10.2); CARBON DIOXIDE 28 mmol/L (22-30); CHLORIDE 83 mmol/L (98-107); GLUCOSE 139 mg/dL (75-110); POTASSIUM 4.1 mmol/L (3.6-5.0); SODIUM 123.9 mmol/L (137-145)
--- NOTE | 2017-10-16 14:11 | XCELERA REPORT ---
[address] [address] Transthoracic Echocardiogram Report Name: SONA JAQUEZ Age: 62 yrs Gender: Male : 1955 Patient Status: Inpatient Patient Location: [address] [place] [address] Study Date: 10/16/2017 10:04 AM Height: 69 in Weight: 180 lb BSA: 2.0 m2 Procedure: A complete two-dimensional transthoracic echocardiogram was performed (2D, M-mode, spectral and color flow Doppler). The study was technically difficult with many images being suboptimal in quality. Reason For Study: elevated BNP Ordering Physician: MARITZA LEBLANC Performed By: Brandi Yu Interpretation Summary The Ejection Fraction estimate is 20-25% There is borderline concentric left ventricular hypertrophy. The left ventricle is moderately dilated. Doppler measurements suggest pseudonormalized left ventricular relaxation, which is associated with grade II/IV or mild to moderate diastolic dysfunction There is severe global hypokinesis of the left ventricle. The right ventricular systolic function is normal. The left atrium is moderately dilated. The right atrium is normal in size There is a moderate to severe amount of mitral regurgitation There is no mitral valve stenosis. There is a moderate amount of aortic regurgitation There is no aortic valve stenosis There is a trace to mild amount of tricuspid regurgitation There is moderate pulmonary hypertension by echo Right ventricular systolic pressure is estimated to be elevated at 40- 50mmHg. The aortic root is not well visualized. The inferior vena cava appeared dilated and decreased < 50% with respiration (RAP 15-20 mmHg) There is no pericardial effusion. MMode/2D Measurements & Calculations RVDd: 2.1 cm LVIDd: 7.7 cm FS: 9.3 % EPSS: 2.9 cm IVSd: 1.0 cm LVIDs: 7.0 cm EDV(Teich): MV Diam: 2.8 cm LVPWd: 1.0 cm 317.8 ml ESV(Teich): 255.2 ml EF(Teich): 19.7 % Ao root diam: LVOT diam: LVLd ap4: 9.9 cm SV(MOD-sp4): 40.0 ml 3.7 cm 2.3 cm EDV(MOD-sp4): Ao root area: LVOT area: 235.0 ml 10.9 cm2 4.2 cm2 LVLs ap4: 9.4 cm LA dimension: ESV(MOD-sp4): 4.6 cm 195.0 ml EF(MOD-sp4): 17.0 % LA A2Cs: 26.2 cm2 LA A4Cs: LA length: 6.8 cm LA Vol Index (BP): 36.7 cm2 61.3 ml/m2 LA Volume: 121.1 ml Doppler Measurements & Calculations MV E max debbi: MV area (1 diam): MV P1/2t max debbi: Ao V2 max: 107.1 cm/sec 108.1 cm/sec 167.7 cm/sec MV A max debbi: 6.0 cm2 MV P1/2t: 48.0 msec Ao max P.9 cm/sec MV Flow area 11.3 mmHg MV E/A: 2.3 (1diam): 6.0 cm2 MVA(P1/2t): 4.6 cm2 JUSTIN(V,D): MV dec slope: 659.2 cm/sec2 3.2 cm2 AI max debbi: LV V1 max PG: MR max dbebi: PA V2 max: 359.0 cm/sec 6.5 mmHg 436.5 cm/sec 57.0 cm/sec AI max PG: LV V1 max: MR max P.2 mmHgPA max P.7 mmHg 127.8 cm/sec 1.3 mmHg AI dec slope: LV dP/dt: 509.5 cm/sec2 535.0 mmHg/s AI P1/2t: 206.4 msec TR max debbi: 273.6 cm/sec TR max P.0 mmHg Left Ventricle The left ventricle is moderately dilated. There is borderline concentric left ventricular hypertrophy. The Ejection Fraction estimate is 20-25%. Doppler measurements suggest pseudonormalized left ventricular relaxation, which is associated with grade II/IV or mild to moderate diastolic dysfunction. There is severe global hypokinesis of the left ventricle. Right Ventricle The right ventricle is grossly normal size. There is normal right ventricular wall thickness. The right ventricular systolic function is normal. Atria The right atrium is normal in size. The left atrium is moderately dilated. Interarterial septum not well visualized and not well dopplered. Cannot comment on ASD/PFO presence. Mitral Valve The mitral valve leaflets are sclerotic and show some degree of functional abnormality. There is no mitral valve stenosis. There is a moderate to severe amount of mitral regurgitation. Aortic Valve The aortic valve opens well. There is no aortic valve stenosis. There is a moderate amount of aortic regurgitation. Tricuspid Valve The tricuspid valve is not well visualized, but is grossly normal. There is no tricuspid stenosis. There is a trace to mild amount of tricuspid regurgitation. There is moderate pulmonary hypertension by echo. Right ventricular systolic pressure is estimated to be elevated at 40-50mmHg. Pulmonic Valve The pulmonic valve is not well visualized. Great Vessels The aortic root is not well visualized. The inferior vena cava appeared dilated and decreased < 50% with respiration (RAP 15-20 mmHg). Effusions There is no pericardial effusion. : MARITZA LEBLANC > Malena Craven
[2017-10-16] MEDS: LEVOFLOXACIN 750 MG/D5W RTU 750 MG/150 ML RTUPB IV SCH (17:41)
[2017-10-17 05:06] LABS: ANION GAP 14 (5-19); BLOOD UREA NITROGEN 25 mg/dL (7-20); CALCIUM 8.7 mg/dL (8.4-10.2); CARBON DIOXIDE 29 mmol/L (22-30); CHLORIDE 83 mmol/L (98-107); GLUCOSE 143 mg/dL (75-110); POTASSIUM 3.8 mmol/L (3.6-5.0); SODIUM 125.8 mmol/L (137-145)
[2017-10-17 05:39] LABS: HEPATITIS A AB IGM Negative (Negative); HEPATITIS B CORE AB IGM Negative (Negative); HEPATITS B SURFACE ANTIGEN Negative (Negative)
[2017-10-17] MEDS: NYSTATIN 500000 UNIT/5 ML UDCUP PO SCH ×4 (06:29→23:04)
[2017-10-17] MEDS: DIAZEPAM 5 MG TABLET PO SCH ×2 (06:30→23:05)
[2017-10-17] MEDS: METHYLPREDNISOLONE INJ 40 MG/1 ML SDV IV SCH ×2 (06:31→18:00)
[2017-10-17 07:39] LABS: HEPATITIS C VIRUS ANTIBODY <0.1 s/co ratio (0.0-0.9)
[2017-10-17] MEDS: IPRATROPIUM/ALBUTEROL 0.5-2.5 MG/3 ML AMPUL NEB SCH ×3 (07:43→19:37)
[2017-10-17] MEDS: PENTOXIFYLLINE 400 MG TABLET.SA PO SCH ×3 (10:18→17:58)
[2017-10-17] MEDS: THIAMINE HCL 100 MG TABLET PO SCH (10:19)
[2017-10-17] MEDS: PANTOPRAZOLE SODIUM 40 MG VIAL IV SCH ×2 (10:19→23:05)
[2017-10-17] MEDS: NICOTINE 21 MG/24 HR PATCH.TD24 TD SCH (10:19)
[2017-10-17] MEDS: DOCUSATE SODIUM 100 MG CAPSULE PO SCH (10:19)
[2017-10-17] MEDS: MULTIVITAMIN TABLET PO SCH (10:19)
--- NOTE | 2017-10-17 13:04 | PDOC PROGRESS REPORT ---
Subjective Progress Note for:: 10/17/17 Subjective:: Patient is less sedated today. Reason For Visit: PNEUMONIA, ALCOHOLIC HEPATITIS, HYPONATREMIA Physical Exam Vital Signs: Temp Pulse Resp BP Pulse Ox 97.4 F 91 18 113/59 L 90 L 10/17/17 00:09 10/17/17 09:13 10/17/17 09:13 10/17/17 09:13 10/17/17 09:13 Intake & Output 10/16/17 10/17/17 10/18/17 06:59 06:59 06:59 Intake Total 699 2280 Output Total 700 2150 Balance -1 130 Weight 79.1 kg 77.9 kg General appearance: PRESENT: no acute distress Eye exam: PRESENT: conjunctiva pink. ABSENT: scleral icterus Mouth exam: PRESENT: moist, tongue midline Neck exam: ABSENT: JVD Respiratory exam: PRESENT: clear to auscultation anand. ABSENT: rales, rhonchi, wheezes Cardiovascular exam: PRESENT: RRR. ABSENT: diastolic murmur, rubs, systolic murmur GI/Abdominal exam: PRESENT: normal bowel sounds, soft. ABSENT: distended, guarding, mass, organolmegaly, rebound, tenderness Extremities exam: ABSENT: calf tenderness, clubbing, pedal edema Neurological exam: PRESENT: alert, awake, oriented to person, oriented to place , oriented to time, oriented to situation, CN II-XII grossly intact. ABSENT: motor sensory deficit Psychiatric exam: PRESENT: appropriate affect Skin exam: PRESENT: dry, intact, warm. ABSENT: cyanosis, rash Results Laboratory Results: 10/16/17 12:27 10/17/17 03:55 10/16/17 10/16/17 10/17/17 12:27 12:27 03:55 WBC 9.2 RBC 4.65 Hgb 14.7 Hct 43.8 MCV 94 MCH 31.7 MCHC 33.6 RDW 14.8 H Plt Count 151 Seg Neutrophils % 88.8 H Lymphocytes % 7.4 L Monocytes % 3.6 Eosinophils % 0.1 Basophils % 0.1 Absolute Neutrophils 8.2 Absolute Lymphocytes 0.7 Absolute Monocytes 0.3 Absolute Eosinophils 0.0 Absolute Basophils 0.0 Sodium 123.9 L 125.8 L Potassium 4.1 3.8 Chloride 83 L 83 L Carbon Dioxide 28 29 Anion Gap 13 14 BUN 33 H 25 H Creatinine 0.72 0.73 Est GFR ( Amer) > 60 > 60 Est GFR (Non-Af Amer) > 60 > 60 Glucose 139 H 143 H Calcium 8.6 8.7 10/15/17 10/16/17 18:35 00:24 Troponin I 0.079 0.069 Impressions: Chest X-Ray 10/15/17 14:50 IMPRESSION: MILD INTERSTITIAL EDEMA WITH ADDITIONAL RIGHT LOWER LOBE AIRSPACE DISEASE AND SMALL RIGHT PLEURAL EFFUSION MAY REPRESENT SUBSEGMENTAL ATELECTASIS OR SUPERIMPOSED PNEUMONIA. Abdomen Ultrasound 10/15/17 16:23 IMPRESSION: Fatty enlarged liver. No acute gallbladder disease. Assessment & Plan - Diagnosis (1) Pneumonia Qualifiers: Pneumonia type: due to unspecified organism Lung location: unspecified part of lung Is this a current diagnosis for this admission?: Yes Plan: Patient is on Levaquin. Cultures are negative so far. (2) Alcoholic cirrhosis of liver Qualifiers: Ascites presence: without ascites Qualified Code(s): K70.30 - Alcoholic cirrhosis of liver without ascites Is this a current diagnosis for this admission?: Yes Plan: He is sedated and has been getting scheduled Ativan for DTs treatment. We will decrease as he is still somewhat sedated. (3) CHF (congestive heart failure) Qualifiers: Congestive heart failure type: unspecified congestive heart failure type Congestive heart failure chronicity: chronic Qualified Code(s): I50.9 - Heart failure, unspecified Is this a current diagnosis for this admission?: Yes Plan: Patient has an elevated BNP but clinically appears to be euvolemic. (4) Elevated brain natriuretic peptide (BNP) level Is this a current diagnosis for this admission?: Yes Plan: Patient is clinically euvolemic (5) Hyponatremia Is this a current diagnosis for this admission?: Yes Plan: Secondary to liver disease. (6) Tobacco abuse Is this a current diagnosis for this admission?: Yes - Time Time Spent with patient: 25-34 minutes - Inpatient Certification Medical Necessity: Need for IV Antibiotics
[2017-10-17] MEDS: DOXYCYCLINE HYCLATE 100 MG in DEXTROSE 5%-WATER 250 ML IV SCH (18:00)
[2017-10-18] MEDS: DEXTROSE 5%-WATER 1000 ML 1,000 ML IV PRN (03:32)
[2017-10-18 04:54] LABS: ABSOLUTE LYMPHOCYTES (AUTO) 0.8 10^3/uL (0.5-4.7); ABSOLUTE NEUT (AUTO) 8.2 10^3/uL (1.7-8.2); EOSINOPHILS % (AUTO) 0.1 % (0-6); HEMATOCRIT 41.6 % (37.9-51.0); LYMPHOCYTES % (AUTO) 8.4 % (13-45); MEAN CORPUSCULAR HEMOGLOBIN 31.5 pg (27.0-33.4); MEAN CORPUSCULAR HGB CONC 33.7 g/dL (32.0-36.0); MEAN CORPUSCULAR VOLUME 93 fl (80-97); MONOCYTES % (AUTO) 9.9 % (3-13); PLATELET COUNT 112 10^3/uL (150-450); RED BLOOD COUNT 4.45 10^6/uL (4.35-5.55); RED CELL DISTRIBUTION WIDTH 15.1 % (11.5-14.0); SEGMENTED NEUTROPHILS % (AUTO) 81.6 % (42-78); TOTAL CELLS COUNTED % (AUTO) 100 %; WHITE BLOOD COUNT 10.1 10^3/uL (4.0-10.5)
[2017-10-18 05:11] LABS: ANION GAP 8 (5-19); BLOOD UREA NITROGEN 25 mg/dL (7-20); CALCIUM 8.5 mg/dL (8.4-10.2); CARBON DIOXIDE 28 mmol/L (22-30); CHLORIDE 84 mmol/L (98-107); GLUCOSE 136 mg/dL (75-110); POTASSIUM 4.2 mmol/L (3.6-5.0)
[2017-10-18 05:33] LABS: SODIUM 120.2 mmol/L (137-145)
[2017-10-18] MEDS: DOXYCYCLINE HYCLATE 100 MG in DEXTROSE 5%-WATER 250 ML IV SCH ×2 (05:51→17:36)
[2017-10-18] MEDS: METHYLPREDNISOLONE INJ 40 MG/1 ML SDV IV SCH ×2 (05:51→17:36)
[2017-10-18] MEDS: NYSTATIN 500000 UNIT/5 ML UDCUP PO SCH ×4 (05:56→23:02)
[2017-10-18] MEDS: IPRATROPIUM/ALBUTEROL 0.5-2.5 MG/3 ML AMPUL NEB SCH ×3 (07:30→19:47)
[2017-10-18] MEDS: DOCUSATE SODIUM 100 MG CAPSULE PO SCH (09:33)
[2017-10-18] MEDS: MULTIVITAMIN TABLET PO SCH (09:33)
[2017-10-18] MEDS: DIAZEPAM 5 MG TABLET PO SCH ×2 (09:33→23:00)
[2017-10-18] MEDS: THIAMINE HCL 100 MG TABLET PO SCH (09:33)
[2017-10-18] MEDS: NICOTINE 21 MG/24 HR PATCH.TD24 TD SCH (09:34)
[2017-10-18] MEDS: PANTOPRAZOLE SODIUM 40 MG VIAL IV SCH (09:34)
[2017-10-18] MEDS: PENTOXIFYLLINE 400 MG TABLET.SA PO SCH ×3 (09:38→17:36)
--- NOTE | 2017-10-18 11:49 | PDOC PROGRESS REPORT ---
Subjective Progress Note for:: 10/18/17 Subjective:: Denies any complaints. He is alert and oriented 3. Reason For Visit: PNEUMONIA, ALCOHOLIC HEPATITIS, HYPONATREMIA Physical Exam Vital Signs: Temp Pulse Resp BP Pulse Ox 97.3 F 92 16 113/63 94 10/18/17 05:22 10/18/17 07:30 10/18/17 07:30 10/18/17 05:22 10/18/17 07:30 Intake & Output 10/17/17 10/18/17 10/19/17 06:59 06:59 06:59 Intake Total 2280 1841 Output Total 2150 780 Balance 130 1061 Weight 77.9 kg 78.4 kg General appearance: PRESENT: no acute distress Eye exam: PRESENT: conjunctiva pink. ABSENT: scleral icterus Mouth exam: PRESENT: moist, tongue midline Neck exam: ABSENT: JVD Respiratory exam: PRESENT: clear to auscultation anand. ABSENT: rales, rhonchi, wheezes Cardiovascular exam: PRESENT: RRR. ABSENT: diastolic murmur, rubs, systolic murmur GI/Abdominal exam: PRESENT: normal bowel sounds, soft. ABSENT: distended, guarding, mass, organolmegaly, rebound, tenderness Extremities exam: PRESENT: full ROM. ABSENT: calf tenderness, clubbing, pedal edema Neurological exam: PRESENT: alert, awake, oriented to person, oriented to place , oriented to time, oriented to situation, CN II-XII grossly intact. ABSENT: motor sensory deficit Psychiatric exam: PRESENT: appropriate affect Skin exam: PRESENT: dry, intact, warm. ABSENT: cyanosis, rash Results Laboratory Results: 10/18/17 04:00 10/18/17 04:00 10/18/17 10/18/17 04:00 04:00 WBC 10.1 RBC 4.45 Hgb 14.0 Hct 41.6 MCV 93 MCH 31.5 MCHC 33.7 RDW 15.1 H Plt Count 112 L Seg Neutrophils % 81.6 H Lymphocytes % 8.4 L Monocytes % 9.9 Eosinophils % 0.1 Basophils % 0.0 Absolute Neutrophils 8.2 Absolute Lymphocytes 0.8 Absolute Monocytes 1.0 Absolute Eosinophils 0.0 Absolute Basophils 0.0 Sodium 120.2 L* Potassium 4.2 Chloride 84 L Carbon Dioxide 28 Anion Gap 8 BUN 25 H Creatinine 0.66 Est GFR ( Amer) > 60 Est GFR (Non-Af Amer) > 60 Glucose 136 H Calcium 8.5 10/15/17 10/16/17 18:35 00:24 Troponin I 0.079 0.069 Impressions: Chest X-Ray 10/15/17 14:50 IMPRESSION: MILD INTERSTITIAL EDEMA WITH ADDITIONAL RIGHT LOWER LOBE AIRSPACE DISEASE AND SMALL RIGHT PLEURAL EFFUSION MAY REPRESENT SUBSEGMENTAL ATELECTASIS OR SUPERIMPOSED PNEUMONIA. Abdomen Ultrasound 10/15/17 16:23 IMPRESSION: Fatty enlarged liver. No acute gallbladder disease. Assessment & Plan - Diagnosis (1) Pneumonia Qualifiers: Pneumonia type: due to unspecified organism Lung location: unspecified part of lung Is this a current diagnosis for this admission?: Yes Plan: Patient is on Levaquin. Cultures are negative so far. (2) Alcoholic cirrhosis of liver Qualifiers: Ascites presence: without ascites Qualified Code(s): K70.30 - Alcoholic cirrhosis of liver without ascites Is this a current diagnosis for this admission?: Yes Plan: Patient is alert and oriented 3. (3) CHF (congestive heart failure) Qualifiers: Congestive heart failure type: unspecified congestive heart failure type Congestive heart failure chronicity: chronic Qualified Code(s): I50.9 - Heart failure, unspecified Is this a current diagnosis for this admission?: Yes Plan: Patient has an elevated BNP but clinically appears to be euvolemic. (4) Elevated brain natriuretic peptide (BNP) level Is this a current diagnosis for this admission?: Yes Plan: Patient is clinically euvolemic (5) Hyponatremia Is this a current diagnosis for this admission?: Yes Plan: Secondary to liver disease. Will place on a fluid restriction (6) Tobacco abuse Is this a current diagnosis for this admission?: Yes - Time Time Spent with patient: 25-34 minutes - Inpatient Certification Medical Necessity: Need for IV Antibiotics
[2017-10-19] MEDS: NYSTATIN 500000 UNIT/5 ML UDCUP PO SCH ×2 (05:19→12:54)
[2017-10-19] MEDS: DOXYCYCLINE HYCLATE 100 MG in DEXTROSE 5%-WATER 250 ML IV SCH (05:20)
[2017-10-19] MEDS: METHYLPREDNISOLONE INJ 40 MG/1 ML SDV IV SCH (05:20)
[2017-10-19 06:16] LABS: ANION GAP 14 (5-19); BLOOD UREA NITROGEN 31 mg/dL (7-20); CALCIUM 9.1 mg/dL (8.4-10.2); CARBON DIOXIDE 25 mmol/L (22-30); CHLORIDE 86 mmol/L (98-107); GLUCOSE 107 mg/dL (75-110); POTASSIUM 4.3 mmol/L (3.6-5.0)
[2017-10-19] MEDS: IPRATROPIUM/ALBUTEROL 0.5-2.5 MG/3 ML AMPUL NEB SCH (08:36)
[2017-10-19] MEDS: MULTIVITAMIN TABLET PO SCH (10:20)
[2017-10-19] MEDS: NICOTINE 21 MG/24 HR PATCH.TD24 TD SCH (10:20)
[2017-10-19] MEDS: PENTOXIFYLLINE 400 MG TABLET.SA PO SCH ×2 (10:21→13:21)
[2017-10-19] MEDS: DIAZEPAM 5 MG TABLET PO SCH (10:21)
[2017-10-19] MEDS: DOCUSATE SODIUM 100 MG CAPSULE PO SCH (10:21)
[2017-10-19] MEDS: THIAMINE HCL 100 MG TABLET PO SCH (10:21)
[2017-10-19 12:08] VITALS: BP 110/53
--- NOTE | 2017-10-19 12:33 | PDOC DISCHARGE SUMMARY ---
General - Admit/Disc Date/PCP Admission Date/Primary Care Provider: 10/15/17 16:55 Discharge Date: 10/19/17 - Discharge Diagnosis (1) Pneumonia Is this a current diagnosis for this admission?: Yes Summary: Negative cultures (2) Alcoholic cirrhosis of liver Is this a current diagnosis for this admission?: Yes (3) CHF (congestive heart failure) Is this a current diagnosis for this admission?: Yes (4) Elevated brain natriuretic peptide (BNP) level Is this a current diagnosis for this admission?: Yes (5) Hyponatremia Is this a current diagnosis for this admission?: Yes (6) Tobacco abuse Is this a current diagnosis for this admission?: Yes - Additional Information Resuscitation Status: Full Code Discharge Diet: Cardiac Discharge Activity: Activity As Tolerated, Balance Activity w/Rest, Weigh Daily Prescriptions: Diazepam [Valium 5 mg Tablet] 5 mg PO Q12 PRN #5 tablet PRN Reason: Anxiety Doxycycline Hyclate 100 mg PO BID #20 capsule Pentoxifylline [Trental 400 mg Tablet.sa] 400 mg PO TID #90 tablet.sa Home Medications: Diazepam [Valium 5 mg Tablet] 5 mg PO Q12 PRN #5 tablet 10/19/17 Doxycycline Hyclate 100 mg PO BID #20 capsule 10/19/17 Flu Vacc [id number] [id number] Up/Pf [Fluzone Adlt Quad [id number] Vac 0.5 ml Syr] 0.5 ml IM .DISCHARGE PRN disp.syrin 10/19/17 Nicotine [Nicoderm 21 mg/24 Hr Transderm Patch] 1 each TD DAILY patch.td24 03/01 Pentoxifylline [Trental 400 mg Tablet.sa] 400 mg PO TID #90 tablet.sa 10/19/17 Thiamine HCl [Thiamine 100 mg Tablet] 100 mg PO DAILY tablet 10/19/17 History of Present Illness History of Present Illness: SONA JAQUEZ is a 62 year old male who presented to the emergency room because of shortness of breath. The patient had a productive cough and weakness for several days prior. The patient was initially seen as an outpatient started on Zithromax. He did not improve and then presented to the emergency room. The patient also has been sleeping close to a burner for warmth. The patient is a smoker and smokes 1-1/2 packs per day. He also has a long history of alcohol abuse and drinks 8 beers daily. Patient was admitted for pneumonia and further evaluation of his respiratory status. Hospital Course Hospital Course: 62-year-old gentleman who presented with pneumonia. The patient had been initially treated with Zithromax. He was switched over to doxycycline and had improvement in his respiratory status. Because of his history of alcohol use and liver ultrasound was done and showed no evidence for cirrhosis. He does have fatty liver however. The patient was started on scheduled Valium to prevent delirium tremens as he has a history of developing this according his report. The Valium was decreased and he was alert and oriented 3 on the day of discharge. Patient also was noted to have an elevated BNP however he had no evidence for congestive heart failure on exam. He does have a history of congestive heart failure by report. He also was noted to have hyponatremia most likely related to his chronic alcohol use. Patient was alert and oriented and tolerating p.o. well and oxygenating well on room air. Physical Exam Vital Signs: Temp Pulse Resp BP Pulse Ox 97.4 F 100 16 110/53 L 94 10/19/17 12:03 10/19/17 12:03 10/19/17 12:03 10/19/17 12:03 10/19/17 12:03 Intake & Output 10/18/17 10/19/17 10/20/17 06:59 06:59 06:59 Intake Total 1841 305 Output Total 780 1000 Balance 1061 -695 Weight 78.4 kg 77.4 kg General appearance: PRESENT: no acute distress Eye exam: PRESENT: conjunctiva pink. ABSENT: scleral icterus Mouth exam: PRESENT: moist, tongue midline Neck exam: ABSENT: JVD Respiratory exam: PRESENT: clear to auscultation anand. ABSENT: rales, rhonchi, wheezes Cardiovascular exam: PRESENT: RRR. ABSENT: diastolic murmur, rubs, systolic murmur GI/Abdominal exam: PRESENT: normal bowel sounds, soft. ABSENT: distended, guarding, mass, organolmegaly, rebound, tenderness Extremities exam: ABSENT: calf tenderness, clubbing, pedal edema Neurological exam: PRESENT: alert, awake, oriented to person, oriented to place , oriented to time, oriented to situation, CN II-XII grossly intact. ABSENT: motor sensory deficit Skin exam: PRESENT: dry, intact, warm. ABSENT: cyanosis, rash Results Laboratory Results: 10/18/17 04:00 10/19/17 04:33 10/19/17 04:33 Sodium 125.0 L Potassium 4.3 Chloride 86 L Carbon Dioxide 25 Anion Gap 14 BUN 31 H Creatinine 0.78 Est GFR ( Amer) > 60 Est GFR (Non-Af Amer) > 60 Glucose 107 Calcium 9.1 10/15/17 10/16/17 18:35 00:24 Troponin I 0.079 0.069 Impressions: Chest X-Ray 10/15/17 14:50 IMPRESSION: MILD INTERSTITIAL EDEMA WITH ADDITIONAL RIGHT LOWER LOBE AIRSPACE DISEASE AND SMALL RIGHT PLEURAL EFFUSION MAY REPRESENT SUBSEGMENTAL ATELECTASIS OR SUPERIMPOSED PNEUMONIA. Abdomen Ultrasound 10/15/17 16:23 IMPRESSION: Fatty enlarged liver. No acute gallbladder disease. Qualifiers PATEINT BEING DISCHARGED WITH ANY OF THE FOLLOWING DIAGNOSIS?: No Plan Discharge Plan: Discharged home. Follow with primary care in 2 weeks. Time Spent: Greater than 30 Minutes
== END 2017-10-19 13:44 | disposition home or self-care (01) | DRG 194 ==
LOC: ER 13:09 → EH 16:55 → 3N 22:14
PROVIDERS: ADMIT Pediatrics; ATTEND Pediatrics
PROC: 3E0F73Z Introduction of Anti-inflammatory into Respiratory Tract, Via Natural or Artificial Opening (ICD-10-PCS; principal; 2017-10-15)
DX: J18.9 Pneumonia, unspecified organism (principal); E87.1 Hypo-osmolality and hyponatremia; B37.0 Candidal stomatitis; K70.0 Alcoholic fatty liver; F17.210 Nicotine dependence, cigarettes, uncomplicated; F10.10 Alcohol abuse, uncomplicated; R79.89 Other specified abnormal findings of blood chemistry
CPT/HCPCS: 36415; 36600; 71046; 76705; 80048; 80053; 80074; 80307; 82140; 82550; 82553; 82803; 83735; 83880; 84100; 84300; 84443; 84484; 85025; 85610; 87040; 87804; 93005; 93010; 93306; 94640; 96374; 99285; J1940; J1956; J2920; J3411; J3490; J7030; J7060; J7620; S0164

== ENCOUNTER 2017-11-13 13:41 | Inpatient (IN) | payer OTHER ==
[2017-11-13 15:10] LABS: ARTERIAL BLOOD H2CO3 0.57 mmol/L (1.05-1.35); ARTERIAL BLOOD HCO3 17.1 mmol/L (20-26); ARTERIAL BLOOD O2 SATURATION 96.9 % (94-98); ARTERIAL BLOOD PH 7.57 (7.35-7.45); ARTERIAL BLOOD PO2 73.9 mmHg (80-100); ARTERIAL BLOOD TOTAL CO2 17.7 mmol/L (23-27)
[2017-11-13 15:12] LABS: ARTERIAL BLOOD FIO2 2L
[2017-11-13 15:15] LABS: HEMATOCRIT 45.7 % (37.9-51.0); HEMOGLOBIN 15.2 g/dL (13.5-17.0); MEAN CORPUSCULAR HEMOGLOBIN 31.1 pg (27.0-33.4); MEAN CORPUSCULAR HGB CONC 33.3 g/dL (32.0-36.0); MEAN CORPUSCULAR VOLUME 93 fl (80-97); PLATELET COUNT 166 10^3/uL (150-450); RED BLOOD COUNT 4.89 10^6/uL (4.35-5.55); RED CELL DISTRIBUTION WIDTH 15.5 % (11.5-14.0); WHITE BLOOD COUNT 10.5 10^3/uL (4.0-10.5)
[2017-11-13 15:33] LABS: ANION GAP 13 (5-19); BLOOD UREA NITROGEN 44 mg/dL (7-20); CALCIUM 9.7 mg/dL (8.4-10.2); CARBON DIOXIDE 23 mmol/L (22-30); CHLORIDE 98 mmol/L (98-107); CREATINE KINASE 107 U/L (55-170); GLUCOSE 88 mg/dL (75-110); POTASSIUM 4.5 mmol/L (3.6-5.0); SODIUM 134.1 mmol/L (137-145)
[2017-11-13 15:45] LABS: CREATINE KINASE MB 6.36 ng/mL (<4.55); TROPONIN I 0.091 ng/mL
[2017-11-13] MEDS ORDERED: NORMAL SALINE 1000 ML 1,000 ML IV PRN (15:54)
--- NOTE | 2017-11-13 17:46 | RADIOLOGY REPORT (SQ) ---
EXAM DESCRIPTION: CTA CHEST COMPLETED DATE/TIME: 11/13/2017 5:10 pm REASON FOR STUDY: possible PE COMPARISON: None. TECHNIQUE: CT scan of the chest performed using helical scanning technique with dynamic intravenous contrast injection. Images reviewed with lung, soft tissue and bone windows. Reconstructed coronal and sagittal MPR images reviewed. Additional 3 dimensional post-processing performed to develop Maximal Intensity Projection images (UT P). All images stored on PACS. All CT scanners at this facility use dose modulation, iterative reconstruction, and/or weight based d osing when appropriate to reduce radiation dose to as low as reasonably achievable (ALARA). [facility]: Dose Right [facility]: CareDose [facility]: Dose Right [facility]: Teradose 4D [facility]: [employer] CONTRAST TYPE AND DOSE: Isovue 370 65 mL. Contrast bolus optimized for the pulmonary arteries. Not diagnostic for the aorta. RENAL FUNCTION: Creatinine 1.17 RADIATION DOSE: CT Rad equipment meets quality standard of care and radiation dose reduction techniq ues were employed. CTDIvol: 14.3 - 33.1 mGy. DLP: 601 mGy-cm. . LIMITATIONS: None. FINDINGS: LUNGS AND PLEURA: Centrilobular emphysema. 8 mm in nodular density noted left lower lobe( Image 83/146 ).Prominent compressive atelectasis noted in the lower lobes with pleural effusions, r ight greater than left. There is patchy ground-glass infiltrate noted in the left lower lobe. Thick ening of the oblique and right minor fissure suggestive of interfissural fluid. There are changes of thickened interlobular septi. The possibility of interstitial edema must be considered. AORTA AND GREAT VESSELS: There is aneurysmal dilatation of the ascending thoracic aorta measuring 5. 4 cm in AP diameter by 5.2 cm in transverse diameter. The descending thoracic aorta measures 3.6 cm in AP diameter by 3.4 cm in transverse diameter. HEART: No pericardial effusion. No significant coronary artery calcifications. PULMONARY ARTERIES: No emboli visualized in the main pulmonary arteries or the segmental branches. HILAR AND MEDIASTINAL STRUCTURES: Nonenlarged pretracheal node measuring 1.6 cm and AP window node me asured 1.12 cm. Smaller anterior mediastinal nodes noted. Small hilar nodes noted. HARDWARE: None in the chest. UPPER ABDOMEN: No significant findings. Limited exam. THYROID AND OTHER SOFT TISSUES: No masses. No adenopathy. BONES: No acute or significant finding. 3D MIPS: Confirm above findings. OTHER: No other significant finding. IMPRESSION: 1. Cardiomegaly. Changes compatible with interstitial edema with bilateral pleural eff usions. 2. Aneurysmal dilatation of the ascending thoracic aorta. 3. Bibasilar atelectasis. Foca l consolidation superior segment left lower lobe. 4. 8 mm nodular density left lower lobe. Accordi ng to Fleischner criteria 2017, in high risk patients follow-up CT could be obtained in 6 to 12 month s as further evaluation. COMMENT: Quality ID # [id number]: Final reports with documentation of one or more dose reduction techniques (e.g., Automated exposure control, adjustment of the mA and/or kV according to patient size, use of iterative reconstruction technique) TECHNICAL DOCUMENTATION: JOB ID: [id number] [employer]- All Rights Reserved
[2017-11-13] MEDS ORDERED: NORMAL SALINE 250 ML with FUROSEMIDE 250 MG IV PRN ×4 (18:47→20:07)
--- NOTE | 2017-11-13 18:58 | EKG REPORT ---
SEVERITY:- ABNORMAL ECG - SINUS TACHYCARDIA LEFT ATRIAL ABNORMALITY LEFT ANTERIOR FASCICULAR BLOCK LVH WITH SECONDARY REPOLARIZATION ABNORMALITY ANTERIOR Q WAVES, POSSIBLY DUE TO LVH : Confirmed by: Adam Kurtz MD 13-Nov-2017 18:57:21
[2017-11-13 19:30] LABS: ALANINE AMINOTRANSFERASE 245 U/L (21-72); ALBUMIN 3.5 g/dL (3.5-5.0); ALKALINE PHOSPHATASE 121 U/L (38-126); ANION GAP 12 (5-19); ASPARTATE AMINO TRANSFERASE 253 U/L (17-59); BILIRUBIN,DIRECT 1.3 mg/dL (0.0-0.4); BILIRUBIN,TOTAL 2.5 mg/dL (0.2-1.3); BLOOD UREA NITROGEN 47 mg/dL (7-20); CALCIUM 9.8 mg/dL (8.4-10.2); CARBON DIOXIDE 22 mmol/L (22-30); CHLORIDE 100 mmol/L (98-107); GLUCOSE 111 mg/dL (75-110); POTASSIUM 5.3 mmol/L (3.6-5.0); SODIUM 133.7 mmol/L (137-145)
--- NOTE | 2017-11-13 20:09 | PDOC H&P ---
History of Present Illness Admission Date/PCP: 11/13/17 13:41 History of Present Illness: SONA JAQUEZ is a 62 year old male, he came to the office today for evaluation of progressive shortness of breath, he said he cannot walk any distance without getting short of breath, in the office he was evaluated, the oxygen saturation was low, he was admitted directly from the office to the hospital, CTA chest was done, it showed centrilobular emphysema, cardiomegaly, interstitial edema with bilateral pleural effusion also found was a aneurysm of the ascending aorta ,And also focal consolidation in the superior segment of the left lower lobe, the BNP was elevated, he has clinical CHF with bilateral lower edema, history of alcohol abuse with alcohol hepatitis though he said he has stopped drinking alcohol for the last 4 weeks. Patient was admitted, 2D echo was done on 2017, it showed left ventricle ejection fraction 20%, severe global hypokinesis of left ventricle Past Medical History Cardiac Medical History: Reports: Congestive Heart Failure Pulmonary Medical History: Reports: Chronic Obstructive Pulmonary Disease (COPD) , Pneumonia, Other - Pulmonary hypertension GI Medical History: Reports: Cirrhosis, Hepatitis Social History Smoking Status: Current Every Day Smoker Number of Years Smokin Frequency of Alcohol Use: None Hx Recreational Drug Use: No Drugs: None Hx Prescription Drug Abuse: No Family History Family History: Malignancy Parental Family History Reviewed: Yes Children Family History Reviewed: Yes Sibling(s) Family History Reviewed.: Yes Medication/Allergy Home Medications: Albuterol Sulfate [Ventolin Hfa] 2 puff IH Q6HP PRN 11/13/17 Pentoxifylline [Trental 400 Mg Tablet.Sa] 400 mg PO Q8 11/13/17 Umeclidinium Brm/Vilanterol Tr [Anoro Ellipta 62.5-25 Mcg INH] 1 each IH DAILY 11/13/17 Allergies/Adverse Reactions: No Known Allergies Allergy (Verified 10/15/17 13:10) Review of Systems Constitutional: ABSENT: chills, fever(s), headache(s), weight gain, weight loss Eyes: ABSENT: visual disturbances Ears: ABSENT: hearing changes Cardiovascular: PRESENT: dyspnea on exertion, edema, orthropnea. ABSENT: chest pain, palpitations Respiratory: ABSENT: cough, hemoptysis Gastrointestinal: ABSENT: abdominal pain, constipation, diarrhea, hematemesis, hematochezia, nausea, vomiting Genitourinary: ABSENT: dysuria, hematuria Musculoskeletal: ABSENT: joint swelling Integumentary: ABSENT: rash, wounds Neurological: ABSENT: abnormal gait, abnormal speech, confusion, dizziness, focal weakness, syncope Psychiatric: ABSENT: anxiety, depression, homidical ideation, suicidal ideation Endocrine: ABSENT: cold intolerance, heat intolerance, menstrual abnormalities, polydipsia, polyuria Hematologic/Lymphatic: ABSENT: easy bleeding, easy bruising, lymphadenopathy Physical Exam Vital Signs: Temp Pulse Resp BP Pulse Ox 97.5 F 88 24 H 118/61 96 11/13/17 16:04 11/13/17 16:04 11/13/17 16:04 11/13/17 16:04 11/13/17 16:04 Intake & Output 11/12/17 11/13/17 11/14/17 06:59 06:59 06:59 Intake Total 246 Output Total 0 Balance 246 Weight 66.9 kg General appearance: PRESENT: mild distress Head exam: PRESENT: atraumatic, normocephalic Eye exam: PRESENT: PERRLA. ABSENT: scleral icterus Ear exam: PRESENT: normal external ear exam Mouth exam: PRESENT: moist, tongue midline Neck exam: PRESENT: full ROM Respiratory exam: PRESENT: crackles Cardiovascular exam: PRESENT: RRR, +S1, +S2 Pulses: PRESENT: normal dorsalis pedis pul, +2 pedal pulses bilateral Vascular exam: PRESENT: normal capillary refill GI/Abdominal exam: PRESENT: normal bowel sounds, soft Rectal exam: PRESENT: deferred Extremities exam: PRESENT: pedal edema Neurological exam: PRESENT: alert, CN II-XII grossly intact Skin exam: PRESENT: dry, intact, warm Results Laboratory Results: 11/13/17 14:44 11/13/17 19:00 11/13/17 11/13/17 11/13/17 14:44 14:44 14:59 WBC 10.5 RBC 4.89 Hgb 15.2 Hct 45.7 MCV 93 MCH 31.1 MCHC 33.3 RDW 15.5 H Plt Count 166 Carbonic Acid 0.57 L HCO3/H2CO3 Ratio 30:1 ABG pH 7.57 H ABG pCO2 19.0 L* ABG pO2 73.9 L ABG HCO3 17.1 L ABG O2 Saturation 96.9 ABG Base Excess -2.0 FiO2 2L Sodium 134.1 L Potassium 4.5 Chloride 98 Carbon Dioxide 23 Anion Gap 13 BUN 44 H Creatinine 1.17 Est GFR ( Amer) > 60 Est GFR (Non-Af Amer) > 60 Glucose 88 Calcium 9.7 Total Bilirubin AST ALT Alkaline Phosphatase Total Protein Albumin 11/13/17 19:00 WBC RBC Hgb Hct MCV MCH MCHC RDW Plt Count Carbonic Acid HCO3/H2CO3 Ratio ABG pH ABG pCO2 ABG pO2 ABG HCO3 ABG O2 Saturation ABG Base Excess FiO2 Sodium 133.7 L Potassium 5.3 H Chloride 100 Carbon Dioxide 22 Anion Gap 12 BUN 47 H Creatinine 1.08 Est GFR ( Amer) > 60 Est GFR (Non-Af Amer) > 60 Glucose 111 H Calcium 9.8 Total Bilirubin 2.5 H AST 253 H ALT 245 H Alkaline Phosphatase 121 Total Protein 6.0 L Albumin 3.5 11/13/17 11/13/17 11/13/17 14:44 14:44 19:00 Creatine Kinase 107 CK-MB (CK-2) 6.36 H Troponin I 0.091 NT-Pro-B Natriuret Pep 41980 H Impressions: Chest/Abdomen CTA 11/13/17 00:00 IMPRESSION: 1. Cardiomegaly. Changes compatible with interstitial edema with bilateral pleural effusions. 2. Aneurysmal dilatation of the ascending thoracic aorta. 3. Bibasilar atelectasis. Focal consolidation superior segment left lower lobe. 4. 8 mm nodular density left lower lobe. According to Fleischner criteria 2017, in high risk patients follow-up CT could be obtained in 6 to 12 months as further evaluation. Assessment & Plan - Diagnosis (1) Acute systolic heart failure Is this a current diagnosis for this admission?: Yes Plan: Start furosemide infusion,entresto , beta-kal (2) Pulmonary hypertension Is this a current diagnosis for this admission?: Yes (3) Aneurysm of ascending aorta Is this a current diagnosis for this admission?: Yes (4) Mitral valve regurgitation Qualifiers: Cardiac valve disease etiology: nonrheumatic Qualified Code(s): I34.0 - Nonrheumatic mitral (valve) insufficiency Is this a current diagnosis for this admission?: Yes (5) Left lower lobe pneumonia Qualifiers: Pneumonia type: due to unspecified organism Qualified Code(s): J18.1 - Lobar pneumonia, unspecified organism Is this a current diagnosis for this admission?: Yes Plan: Start antibiotic
[2017-11-13] MEDS ORDERED: CARVEDILOL 3.125 MG TABLET PO SCH (22:00)
[2017-11-13] MEDS: SPIRONOLACTONE 25 MG TABLET PO SCH (22:07)
[2017-11-13] MEDS: SACUBITRIL/VALSARTAN 24 MG/26 MG TABLET PO SCH (22:10)
[2017-11-13] MEDS ORDERED: ALBUTEROL SULFATE HFA (90 MCG/PUFF) 8 GM MDI (1 MDI/ER DISP) IH PRN (22:22)
[2017-11-13] MEDS ORDERED: (PENDING PHARMACY ID) (Umeclidinium Brm/Vilanterol Tr [Anoro Ellipta 62.5-25 Mcg Inh] 1 EA IH SCH (22:30)
[2017-11-13] MEDS: LEVOFLOXACIN 750 MG/D5W RTU 750 MG/150 ML RTUPB IV SCH (22:38)
[2017-11-13] MEDS ORDERED: METOPROLOL SUCCINATE 25 MG TAB.SR.24H PO ONE (22:45)
[2017-11-13 23:04] LABS: CREATINE KINASE MB 6.36 ng/mL (<4.55); TROPONIN I 0.102 ng/mL
[2017-11-14] MEDS: CEFEPIME 1 GM/D5W RTU 1 GM/50 ML RTUPB IV SCH ×3 (00:15→21:33)
[2017-11-14] MEDS ORDERED: ALBUTEROL SULFATE HFA (90 MCG/PUFF) 200 PUFF/8.5 GM MDI IH PRN (07:15)
[2017-11-14 07:19] LABS: HEMATOCRIT 39.9 % (37.9-51.0); HEMOGLOBIN 13.4 g/dL (13.5-17.0); MEAN CORPUSCULAR HEMOGLOBIN 31.3 pg (27.0-33.4); MEAN CORPUSCULAR HGB CONC 33.6 g/dL (32.0-36.0); MEAN CORPUSCULAR VOLUME 93 fl (80-97); PLATELET COUNT 132 10^3/uL (150-450); RED BLOOD COUNT 4.28 10^6/uL (4.35-5.55); RED CELL DISTRIBUTION WIDTH 15.1 % (11.5-14.0); WHITE BLOOD COUNT 7.9 10^3/uL (4.0-10.5)
[2017-11-14 07:42] LABS: ANION GAP 8 (5-19); BLOOD UREA NITROGEN 41 mg/dL (7-20); CALCIUM 8.3 mg/dL (8.4-10.2); CARBON DIOXIDE 23 mmol/L (22-30); CHLORIDE 103 mmol/L (98-107); CREATINE KINASE 71 U/L (55-170); GLUCOSE 87 mg/dL (75-110); MAGNESIUM 1.9 mg/dL (1.6-2.3); SODIUM 133.7 mmol/L (137-145)
[2017-11-14 07:55] LABS: TROPONIN I 0.111 ng/mL
[2017-11-14 08:00] LABS: POTASSIUM 4.1 mmol/L (3.6-5.0)
[2017-11-14] MEDS ORDERED: DOBUTAMINE HCL/D5W 500 MG/250 ML RTUINJ IV PRN (08:16)
[2017-11-14] MEDS ORDERED: METOPROLOL SUCCINATE 25 MG TAB.SR.24H PO SCH (10:00)
[2017-11-14] MEDS ORDERED: DIGOXIN 0.25 MG TABLET PO ONE (10:30)
[2017-11-14] MEDS ORDERED: NORMAL SALINE 250 ML IV ONE (10:45)
[2017-11-14] MEDS ORDERED: MIDODRINE HCL 5 MG TABLET PO ONE (11:00)
[2017-11-14] MEDS: DIGOXIN 0.125 MG TABLET PO SCH (11:05)
[2017-11-14] MEDS: CARVEDILOL 3.125 MG TABLET PO SCH ×2 (11:40→21:29)
[2017-11-14] MEDS: SACUBITRIL/VALSARTAN 24 MG/26 MG TABLET PO SCH ×2 (11:40→21:36)
[2017-11-14] MEDS: SPIRONOLACTONE 25 MG TABLET PO SCH ×2 (11:40→21:29)
[2017-11-14] MEDS ORDERED: DIGOXIN 0.125 MG TABLET PO ONE (11:45)
[2017-11-14] MEDS ORDERED: DOPAMINE HCL 800 MG/D5W 250 ML IV PRN (11:54)
[2017-11-14] MEDS ORDERED: DOPAMINE HCL/DEXTROSE 5%-WATER 800 MG/250 ML RTUINJ IV ONE (11:56)
[2017-11-14] MEDS ORDERED: INFLUENZA ADLT QUAD (36MOS+) 2017-18 VAC 0.5 ML SYR IM PRN (14:16)
[2017-11-14 16:15] LABS: HEMATOCRIT 43.2 % (37.9-51.0); HEMOGLOBIN 14.5 g/dL (13.5-17.0); MEAN CORPUSCULAR HEMOGLOBIN 31.5 pg (27.0-33.4); MEAN CORPUSCULAR HGB CONC 33.6 g/dL (32.0-36.0); MEAN CORPUSCULAR VOLUME 94 fl (80-97); PLATELET COUNT 141 10^3/uL (150-450); RED BLOOD COUNT 4.61 10^6/uL (4.35-5.55); RED CELL DISTRIBUTION WIDTH 15.8 % (11.5-14.0); WHITE BLOOD COUNT 8.4 10^3/uL (4.0-10.5)
[2017-11-14 16:24] LABS: INTERNATIONAL RATION (INR) 1.44; PROTHROMBIN TIME 18.4 SEC (11.4-15.4)
[2017-11-14 16:25] LABS: PARTIAL THROMBOPLASTIN TIME 37.2 SEC (23.5-35.8)
--- NOTE | 2017-11-14 17:41 | PDOC PROGRESS REPORT ---
Subjective Progress Note for:: 11/14/17 Subjective:: Patient was admitted yesterday with acute systolic heart failure, he developed hypotension today, was taken off Lasix infusion, presently on IV vasopressor Reason For Visit: SHORTNESS OF BREATH WITH UNKNOWN CAUSE TACHYCARDIA Physical Exam Vital Signs: Temp Pulse Resp BP Pulse Ox 98.0 F 100 19 96/55 L 99 11/14/17 17:00 11/14/17 17:00 11/14/17 17:00 11/14/17 17:00 11/14/17 17:00 Intake & Output 11/13/17 11/14/17 11/15/17 06:59 06:59 06:59 Intake Total 958 271 Output Total 580 400 Balance 378 -129 Weight 66.4 kg General appearance: PRESENT: no acute distress Eye exam: PRESENT: PERRLA Respiratory exam: PRESENT: crackles Cardiovascular exam: PRESENT: +S1, +S2 GI/Abdominal exam: PRESENT: soft Extremities exam: PRESENT: pedal edema Neurological exam: PRESENT: alert Results Laboratory Results: 11/14/17 15:40 11/14/17 15:40 11/13/17 11/14/17 11/14/17 19:00 06:32 06:32 WBC 7.9 RBC 4.28 L Hgb 13.4 L Hct 39.9 MCV 93 MCH 31.3 MCHC 33.6 RDW 15.1 H Plt Count 132 L Sodium 133.7 L 133.7 L Potassium 5.3 H 4.1 D Chloride 100 103 Carbon Dioxide 22 23 Anion Gap 12 8 BUN 47 H 41 H Creatinine 1.08 0.93 Est GFR ( Amer) > 60 > 60 Est GFR (Non-Af Amer) > 60 > 60 Glucose 111 H 87 Calcium 9.8 8.3 L Magnesium 1.9 Total Bilirubin 2.5 H AST 253 H ALT 245 H Alkaline Phosphatase 121 Total Protein 6.0 L Albumin 3.5 11/14/17 11/14/17 15:40 15:40 WBC 8.4 RBC 4.61 Hgb 14.5 Hct 43.2 MCV 94 MCH 31.5 MCHC 33.6 RDW 15.8 H Plt Count 141 L Sodium Potassium Chloride Carbon Dioxide Anion Gap BUN Creatinine 0.73 Est GFR ( Amer) > 60 Est GFR (Non-Af Amer) > 60 Glucose Calcium Magnesium Total Bilirubin AST ALT Alkaline Phosphatase Total Protein Albumin 11/13/17 11/13/17 11/13/17 14:44 14:44 19:00 Creatine Kinase 107 CK-MB (CK-2) 6.36 H Troponin I 0.091 NT-Pro-B Natriuret Pep 03042 H 11/13/17 11/13/17 11/14/17 22:25 22:25 06:32 Creatine Kinase 132 71 CK-MB (CK-2) 6.36 H Troponin I 0.102 NT-Pro-B Natriuret Pep 11/14/17 06:32 Creatine Kinase CK-MB (CK-2) 4.00 Troponin I 0.111 NT-Pro-B Natriuret Pep Impressions: Chest/Abdomen CTA 11/13/17 00:00 IMPRESSION: 1. Cardiomegaly. Changes compatible with interstitial edema with bilateral pleural effusions. 2. Aneurysmal dilatation of the ascending thoracic aorta. 3. Bibasilar atelectasis. Focal consolidation superior segment left lower lobe. 4. 8 mm nodular density left lower lobe. According to Fleischner criteria 2017, in high risk patients follow-up CT could be obtained in 6 to 12 months as further evaluation. Assessment & Plan - Diagnosis (1) Acute systolic heart failure Is this a current diagnosis for this admission?: Yes (2) Pulmonary hypertension Is this a current diagnosis for this admission?: Yes (3) Aneurysm of ascending aorta Is this a current diagnosis for this admission?: Yes (4) Mitral valve regurgitation Qualifiers: Cardiac valve disease etiology: nonrheumatic Qualified Code(s): I34.0 - Nonrheumatic mitral (valve) insufficiency Is this a current diagnosis for this admission?: Yes (5) Left lower lobe pneumonia Qualifiers: Pneumonia type: due to unspecified organism Qualified Code(s): J18.1 - Lobar pneumonia, unspecified organism Is this a current diagnosis for this admission?: Yes (6) Elevated troponin Is this a current diagnosis for this admission?: Yes (7) Hypotension Qualifiers: Hypotension type: unspecified hypotension type Qualified Code(s): I95.9 - Hypotension, unspecified Is this a current diagnosis for this admission?: Yes Plan: Patient was probably over diuresed, start low dose dopamine
--- NOTE | 2017-11-14 20:28 | PDOC CONSULTATION ---
Consultation Consult Date: 11/14/17 Attending physician:: ARLENE DIAZ Consult reason:: CHF, cardiomyopathy History of Present Illness Admission Date/PCP: 11/13/17 13:41 Patient complains of: Shortness of breath History of Present Illness: SONA JAQUEZ is a 62 year old male, he came to the office today for evaluation of progressive shortness of breath, he said he cannot walk any distance without getting short of breath, in the office he was evaluated, the oxygen saturation was low, he was admitted directly from the office to the hospital, CTA chest was done, it showed centrilobular emphysema, cardiomegaly, interstitial edema with bilateral pleural effusion also found was a aneurysm of the ascending aorta , and also focal consolidation in the superior segment of the left lower lobe, the BNP was elevated, he has clinical CHF with bilateral lower edema, history of alcohol abuse with alcohol hepatitis though he said he has stopped drinking alcohol for the last 4 weeks. Patient was admitted, 2D echo was done on 2017, it showed left ventricle ejection fraction 20%, severe global hypokinesis of left ventricle. Past Medical History Cardiac Medical History: Reports: Congestive Heart Failure Pulmonary Medical History: Reports: Chronic Obstructive Pulmonary Disease (COPD) , Pneumonia, Other - Pulmonary hypertension GI Medical History: Reports: Cirrhosis, Hepatitis Social History Information Source: Patient Smoking Status: Current Every Day Smoker Number of Years Smokin Frequency of Alcohol Use: None Hx Recreational Drug Use: No Drugs: None Hx Prescription Drug Abuse: No - Advance Directive Resuscitation Status: Full Code Surrogate healthcare decision maker:: Patient claims he does not have a surrogate decision-maker. Family History Family History: Malignancy Parental Family History Reviewed: Yes Children Family History Reviewed: Yes Sibling(s) Family History Reviewed.: Yes Medication/Allergy Home Medications: Albuterol Sulfate [Ventolin Hfa] 2 puff IH Q6HP PRN 11/13/17 Pentoxifylline [Trental 400 Mg Tablet.Sa] 400 mg PO Q8 11/13/17 Umeclidinium Brm/Vilanterol Tr [Anoro Ellipta 62.5-25 Mcg INH] 1 each IH DAILY 11/13/17 Allergies/Adverse Reactions: No Known Allergies Allergy (Verified 10/15/17 13:10) Review of Systems Review of Systems: Please see history of present illness and past medical history as wall. Constitutional: No fever or chills reported. Head : No recent chronic headaches, recent head injury. Eyes: No recent eye pain, diplopia, redness, discharge, acute visual changes. Ears: No recent chronic ear pain, acute hearing loss, ear discharge. Oral cavity: No recent ulcerations, bleeding, oral cavity discomfort. Neck: No recent acute neck pain reported. Hematologic: No recent easy bruising or bleeding or hematologic malignancy reported. Lymphatic: No recent lymphatic malignancy, chronic lymphadenopathy reported yet Cardiovascular system review: See history of present illness. Respiratory system review: No recent chronic cough, hemoptysis, blood clots in the lungs reported. Severe shortness of breath on exertion Gastrointestinal system review: Negative for any recent acute or chronic abdominal pain, hematemesis, melena, recent change in bowel habits. Genitourinary system review: No recent acute or chronic hematuria, flank pain, UTI etc. reported. Skin system review: Negative for any recent abnormal bruising, no rash, no pruritus reported. Patient has noted increasing pedal edema. Neurologic: No prior history of strokes, mini strokes, seizure disorder. Psychologic: No history of major psychosis or major depression reported. Musculoskeletal: Minor aches and pains reported. No acute joint swelling reported. Endocrine: No recent polyuria, polydipsia, recent heat or cold intolerance. Physical Exam Vital Signs: Temp Pulse Resp BP Pulse Ox 97.6 F 73 16 78/34 L 100 11/14/17 03:33 11/14/17 10:00 11/14/17 03:33 11/14/17 10:00 11/14/17 03:33 Intake & Output 11/13/17 11/14/17 11/15/17 06:59 06:59 06:59 Intake Total 958 Output Total 580 Balance 378 Weight 66.4 kg Exam: GENERAL: well-nourished and in no acute distress. Alert and oriented x3 HEAD: Atraumatic, normocephalic. EYES: Pupils equal round and reactive to light, extraocular movements intact, sclera anicteric, conjunctiva are normal. ENT: TMs normal, nares patent, oropharynx clear without exudates. Moist mucous membranes. No oral ulcerations or bleeding gums noted NECK: supple without lymphadenopathy. Trachea is central. No cervical or axillary lymphadenopathy noted. Carotids are 2+, JVD WNL LUNGS: Respiration seems nonlabored, no significant accessory muscle action noted. Bibasilar fine crackles noted with some diminished breath sounds and dullness right base. CHEST: Palpation of the chest wall shows no significant chest wall tenderness. No other significant abnormalities noted. 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 ABDOMEN: Soft, no significant tenderness appreciated, normoactive bowel sounds. No guarding, no rebound. No rigidity noted . No masses appreciated. EXTREMITIES: Pedal pulses are 1-2+, no calf tenderness noted. No clubbing or cyanosis.1+ pedal edema noted NEUROLOGICAL: Focused neurological exam showed no significant neurologic deficit. Normal speech, no focal weakness appreciated. PSYCH: Normal mood, normal affect. Judgment and insight within normal limits. SKIN: No significant ecchymosis, rash, ulcerations or signs of pruritus noted. MUSCULOSKELETAL EXAM: No significant joint swelling noted. Results Laboratory Results: 11/14/17 06:32 11/14/17 06:32 11/13/17 11/13/17 11/13/17 14:44 14:44 14:59 WBC 10.5 RBC 4.89 Hgb 15.2 Hct 45.7 MCV 93 MCH 31.1 MCHC 33.3 RDW 15.5 H Plt Count 166 Carbonic Acid 0.57 L HCO3/H2CO3 Ratio 30:1 ABG pH 7.57 H ABG pCO2 19.0 L* ABG pO2 73.9 L ABG HCO3 17.1 L ABG O2 Saturation 96.9 ABG Base Excess -2.0 FiO2 2L Sodium 134.1 L Potassium 4.5 Chloride 98 Carbon Dioxide 23 Anion Gap 13 BUN 44 H Creatinine 1.17 Est GFR ( Amer) > 60 Est GFR (Non-Af Amer) > 60 Glucose 88 Calcium 9.7 Magnesium Total Bilirubin AST ALT Alkaline Phosphatase Total Protein Albumin 11/13/17 11/14/17 11/14/17 19:00 06:32 06:32 WBC 7.9 RBC 4.28 L Hgb 13.4 L Hct 39.9 MCV 93 MCH 31.3 MCHC 33.6 RDW 15.1 H Plt Count 132 L Carbonic Acid HCO3/H2CO3 Ratio ABG pH ABG pCO2 ABG pO2 ABG HCO3 ABG O2 Saturation ABG Base Excess FiO2 Sodium 133.7 L 133.7 L Potassium 5.3 H 4.1 D Chloride 100 103 Carbon Dioxide 22 23 Anion Gap 12 8 BUN 47 H 41 H Creatinine 1.08 0.93 Est GFR ( Amer) > 60 > 60 Est GFR (Non-Af Amer) > 60 > 60 Glucose 111 H 87 Calcium 9.8 8.3 L Magnesium 1.9 Total Bilirubin 2.5 H AST 253 H ALT 245 H Alkaline Phosphatase 121 Total Protein 6.0 L Albumin 3.5 11/13/17 11/13/17 11/13/17 14:44 14:44 19:00 Creatine Kinase 107 CK-MB (CK-2) 6.36 H Troponin I 0.091 NT-Pro-B Natriuret Pep 02744 H 11/13/17 11/13/17 11/14/17 22:25 22:25 06:32 Creatine Kinase 132 71 CK-MB (CK-2) 6.36 H Troponin I 0.102 NT-Pro-B Natriuret Pep 11/14/17 06:32 Creatine Kinase CK-MB (CK-2) 4.00 Troponin I 0.111 NT-Pro-B Natriuret Pep EKG Comments: Sinus tachycardia with increased QRS voltage and secondary ST-T changes suggestive of LVH Impressions: Chest/Abdomen CTA 11/13/17 00:00 IMPRESSION: 1. Cardiomegaly. Changes compatible with interstitial edema with bilateral pleural effusions. 2. Aneurysmal dilatation of the ascending thoracic aorta. 3. Bibasilar atelectasis. Focal consolidation superior segment left lower lobe. 4. 8 mm nodular density left lower lobe. According to Fleischner criteria 2017, in high risk patients follow-up CT could be obtained in 6 to 12 months as further evaluation. Assessment & Plan - Diagnosis (1) Acute on chronic systolic heart failure Is this a current diagnosis for this admission?: Yes (2) Aneurysm of ascending aorta Is this a current diagnosis for this admission?: Yes (3) Elevated troponin Is this a current diagnosis for this admission?: Yes (4) Hypotension Qualifiers: Hypotension type: unspecified hypotension type Qualified Code(s): I95.9 - Hypotension, unspecified Is this a current diagnosis for this admission?: Yes (5) Mitral valve regurgitation Qualifiers: Cardiac valve disease etiology: nonrheumatic Qualified Code(s): I34.0 - Nonrheumatic mitral (valve) insufficiency Is this a current diagnosis for this admission?: Yes - Notes Notes: Acute on chronic congestive heart failure: Patient's previous echocardiogram reviewed. It showed severely depressed LVEF as well as moderate to severe mitral regurgitation. This portends a poor prognosis. At this point recommend optimizing vasodilator therapy which should include gradually going up on entresto, carvedilol. Patient started on digoxin today. However a complicating factor has been low blood pressure. Feel that the best option would be considering transfer to tertiary care especially if patient felt a candidate for LVAD/cardiac transplant. What I could gather from chart that patient has tobacco abuse and alcohol abuse history and whether he will be candidate may need to be further investigated. Anyway for best medical management, a tertiary care transfer or at least an appointment with heart failure clinic may be the best option. Aneurysm of the ascending aorta: Currently stable. Elevated troponin I: Possibly related to CHF. CTA of the chest reviewed I did not see much coronary calcification. Hypotension: Currently with low blood pressure patient however seeming to tolerate it well. May consider intermittent fluid boluses if needed. Have placed patient on Midodrin. Mitral valve regurgitation: Patient may benefit from mitral valve clip but again may not be a candidate for it because of severely depressed LVEF already. At this point feel that patient's long-term prognosis is on the poor side. May need to address CODE STATUS etc. - Time Time Spent: 30 to 50 Minutes - More than 50% of the time spent coordinating care , discussing management plans with involved caregivers. Management plans discussed with involved personnels. Medical decision making was of moderate to high complexity, patient's has multiple comorbidities. Medications reviewed and adjusted accordingly: Yes
[2017-11-14] MEDS: LEVOFLOXACIN 750 MG/D5W RTU 750 MG/150 ML RTUPB IV SCH (23:20)
--- NOTE | 2017-11-15 08:44 | Physician Advisory Note ---
Physician Advisor ProgressNote .: Pursuant to the plan for [facility], I have reviewed the medical record for this patient. Physician Advisor Statement: Nice documentation of acute systolic CHF, pulm HTN. Please consider documenting, if you agree: 1. "LLL pneumonia, suspect [gram-neg? gram-pos? ...], evidenced by ___ " 2. " [Hypovolemic? cardiogenic?] SHOCK, due to over-diuresis" 3. "Elevated troponins, suspect due to " Thanks! CK
[2017-11-15 08:53] LABS: ABSOLUTE LYMPHOCYTES (AUTO) 1.7 10^3/uL (0.5-4.7); ABSOLUTE MONOCYTES (AUTO) 0.8 10^3/uL (0.1-1.4); ABSOLUTE NEUT (AUTO) 5.7 10^3/uL (1.7-8.2); BASOPHILS % (AUTO) 0.4 % (0-2); EOSINOPHILS % (AUTO) 0.5 % (0-6); HEMATOCRIT 43.4 % (37.9-51.0); HEMOGLOBIN 14.6 g/dL (13.5-17.0); LYMPHOCYTES % (AUTO) 20.2 % (13-45); MEAN CORPUSCULAR HEMOGLOBIN 31.7 pg (27.0-33.4); MEAN CORPUSCULAR HGB CONC 33.6 g/dL (32.0-36.0); MEAN CORPUSCULAR VOLUME 94 fl (80-97); MONOCYTES % (AUTO) 9.9 % (3-13); PLATELET COUNT 139 10^3/uL (150-450); RED CELL DISTRIBUTION WIDTH 15.4 % (11.5-14.0); TOTAL CELLS COUNTED % (AUTO) 100 %; WHITE BLOOD COUNT 8.2 10^3/uL (4.0-10.5)
[2017-11-15 09:12] LABS: ALANINE AMINOTRANSFERASE 239 U/L (21-72); ALBUMIN 2.7 g/dL (3.5-5.0); ALKALINE PHOSPHATASE 127 U/L (38-126); ANION GAP 7 (5-19); ASPARTATE AMINO TRANSFERASE 172 U/L (17-59); BILIRUBIN,TOTAL 1.6 mg/dL (0.2-1.3); BLOOD UREA NITROGEN 23 mg/dL (7-20); CALCIUM 8.4 mg/dL (8.4-10.2); CARBON DIOXIDE 23 mmol/L (22-30); CHLORIDE 104 mmol/L (98-107); GLUCOSE 93 mg/dL (75-110); POTASSIUM 3.8 mmol/L (3.6-5.0); SODIUM 133.6 mmol/L (137-145); TOTAL PROTEIN 5.1 g/dL (6.3-8.2)
[2017-11-15] MEDS: ENOXAPARIN SODIUM INJ 40 MG/0.4 ML DISP.SYRIN SUBCUT SCH (11:21)
[2017-11-15] MEDS: DIGOXIN 0.125 MG TABLET PO SCH (11:22)
[2017-11-15] MEDS: SACUBITRIL/VALSARTAN 24 MG/26 MG TABLET PO SCH (11:24)
[2017-11-15] MEDS: CARVEDILOL 3.125 MG TABLET PO SCH (11:24)
[2017-11-15] MEDS: SPIRONOLACTONE 25 MG TABLET PO SCH (11:25)
[2017-11-15] MEDS: CEFEPIME 1 GM/D5W RTU 1 GM/50 ML RTUPB IV SCH ×2 (11:26→21:10)
[2017-11-15] MEDS: TORSEMIDE 20 MG TABLET PO SCH (13:31)
--- NOTE | 2017-11-15 20:30 | PDOC PROGRESS REPORT ---
Subjective Progress Note for:: 11/15/17 Subjective:: Patient was seen by the bedside, Dr. Craven, speech pathology supervisor suggest that patient should be transferred to tertiary care to be considered for left ventricle assist device, this option of transfer was discussed with patient but he declined to be transfer to tertiary care also discussed with him about CODE STATUS, he wants to be a full code. He is presently hemodynamically unstable Reason For Visit: SHORTNESS OF BREATH WITH UNKNOWN CAUSE TACHYCARDIA Physical Exam Vital Signs: Temp Pulse Resp BP Pulse Ox 98.2 F 97 18 86/64 L 98 11/15/17 16:19 11/15/17 19:00 11/15/17 16:19 11/15/17 18:31 11/15/17 16:19 Intake & Output 11/14/17 11/15/17 11/16/17 06:59 06:59 06:59 Intake Total 958 1608 795 Output Total 580 1950 835 Balance 378 -342 -40 Weight 66.4 kg 67.9 kg General appearance: PRESENT: no acute distress Eye exam: PRESENT: PERRLA Respiratory exam: PRESENT: rales Cardiovascular exam: PRESENT: +S1, +S2 GI/Abdominal exam: PRESENT: soft Neurological exam: PRESENT: alert Results Laboratory Results: 11/15/17 08:18 11/15/17 08:18 11/15/17 11/15/17 08:18 08:18 WBC 8.2 RBC 4.60 Hgb 14.6 Hct 43.4 MCV 94 MCH 31.7 MCHC 33.6 RDW 15.4 H Plt Count 139 L Seg Neutrophils % 69.0 Lymphocytes % 20.2 Monocytes % 9.9 Eosinophils % 0.5 Basophils % 0.4 Absolute Neutrophils 5.7 Absolute Lymphocytes 1.7 Absolute Monocytes 0.8 Absolute Eosinophils 0.0 Absolute Basophils 0.0 Sodium 133.6 L Potassium 3.8 Chloride 104 Carbon Dioxide 23 Anion Gap 7 BUN 23 H Creatinine 0.69 Est GFR ( Amer) > 60 Est GFR (Non-Af Amer) > 60 Glucose 93 Calcium 8.4 Total Bilirubin 1.6 H AST 172 H ALT 239 H Alkaline Phosphatase 127 H Total Protein 5.1 L Albumin 2.7 L 11/13/17 11/13/17 11/13/17 14:44 14:44 19:00 Creatine Kinase 107 CK-MB (CK-2) 6.36 H Troponin I 0.091 NT-Pro-B Natriuret Pep 61386 H 11/13/17 11/13/17 11/14/17 22:25 22:25 06:32 Creatine Kinase 132 71 CK-MB (CK-2) 6.36 H Troponin I 0.102 NT-Pro-B Natriuret Pep 11/14/17 06:32 Creatine Kinase CK-MB (CK-2) 4.00 Troponin I 0.111 NT-Pro-B Natriuret Pep Impressions: Chest/Abdomen CTA 11/13/17 00:00 IMPRESSION: 1. Cardiomegaly. Changes compatible with interstitial edema with bilateral pleural effusions. 2. Aneurysmal dilatation of the ascending thoracic aorta. 3. Bibasilar atelectasis. Focal consolidation superior segment left lower lobe. 4. 8 mm nodular density left lower lobe. According to Fleischner criteria 2017, in high risk patients follow-up CT could be obtained in 6 to 12 months as further evaluation. Assessment & Plan - Diagnosis (1) Acute systolic heart failure Is this a current diagnosis for this admission?: Yes (2) Pulmonary hypertension Is this a current diagnosis for this admission?: Yes (3) Aneurysm of ascending aorta Is this a current diagnosis for this admission?: Yes (4) Mitral valve regurgitation Qualifiers: Cardiac valve disease etiology: nonrheumatic Qualified Code(s): I34.0 - Nonrheumatic mitral (valve) insufficiency Is this a current diagnosis for this admission?: Yes (5) Left lower lobe pneumonia Qualifiers: Pneumonia type: due to unspecified organism Qualified Code(s): J18.1 - Lobar pneumonia, unspecified organism Is this a current diagnosis for this admission?: Yes (6) Elevated troponin Is this a current diagnosis for this admission?: Yes (7) Hypotension Qualifiers: Hypotension type: unspecified hypotension type Qualified Code(s): I95.9 - Hypotension, unspecified Is this a current diagnosis for this admission?: Yes Plan: He is presently hemodynamically unstable, currently on dopamine at 5 MCG per KG per hour, because patient blood pressure remains low, he will be treated to ICU to initiate intravenous norepinephrine which cannot be administered in IMCU floor
--- NOTE | 2017-11-15 20:39 | PDOC PROGRESS REPORT ---
Subjective Progress Note for:: 11/15/17 Subjective:: Patient remains critically ill with low blood pressure. Patient was ordered to get 10 mg of torsemide this morning. Patient subsequently is started on dopamine drip by Dr. Lara. Reason For Visit: SHORTNESS OF BREATH WITH UNKNOWN CAUSE TACHYCARDIA Physical Exam Vital Signs: Temp Pulse Resp BP Pulse Ox 98.2 F 93 18 92/55 L 98 11/15/17 16:19 11/15/17 20:00 11/15/17 16:19 11/15/17 20:00 11/15/17 16:19 Intake & Output 11/14/17 11/15/17 11/16/17 06:59 06:59 06:59 Intake Total 958 1608 795 Output Total 580 1950 835 Balance 378 -342 -40 Weight 66.4 kg 67.9 kg Exam: GENERAL: well-nourished and in mild respiratory distress. Alert and oriented x3 HEAD: Atraumatic, normocephalic. EYES: Pupils equal round and reactive to light, extraocular movements intact, sclera anicteric, conjunctiva are normal. ENT: TMs normal, nares patent, oropharynx clear without exudates. Moist mucous membranes. No oral ulcerations or bleeding gums noted NECK: supple without lymphadenopathy. Trachea is central. No cervical or axillary lymphadenopathy noted. Carotids are 2+, JVD 8-10 cm LUNGS: Respiration seems nonlabored, no significant accessory muscle action noted. Bibasilar fine crackles noted. No wheezes rales or rhonchi noted. No significant dullness noted on percussion. CHEST: Palpation of the chest wall shows no significant chest wall tenderness. No other significant abnormalities noted. HEART: [place] [employer], No PSH, 1/6 FELIPE aortic area, 1/6 hemphill systolic murmur mitral area, no rubs, no gallops. ABDOMEN: Soft, no significant tenderness appreciated, normoactive bowel sounds. No guarding, no rebound. No rigidity noted . No masses appreciated. EXTREMITIES: Pedal pulses are 1-2+, no calf tenderness noted. No clubbing or cyanosis.1+ pedal edema noted NEUROLOGICAL: Focused neurological exam showed no significant neurologic deficit. Normal speech, no focal weakness appreciated. PSYCH: Normal mood, normal affect. Judgment and insight within normal limits. SKIN: No significant ecchymosis, rash, ulcerations or signs of pruritus noted. MUSCULOSKELETAL EXAM: No significant joint swelling noted. Results Laboratory Results: 11/15/17 08:18 11/15/17 08:18 11/15/17 11/15/17 08:18 08:18 WBC 8.2 RBC 4.60 Hgb 14.6 Hct 43.4 MCV 94 MCH 31.7 MCHC 33.6 RDW 15.4 H Plt Count 139 L Seg Neutrophils % 69.0 Lymphocytes % 20.2 Monocytes % 9.9 Eosinophils % 0.5 Basophils % 0.4 Absolute Neutrophils 5.7 Absolute Lymphocytes 1.7 Absolute Monocytes 0.8 Absolute Eosinophils 0.0 Absolute Basophils 0.0 Sodium 133.6 L Potassium 3.8 Chloride 104 Carbon Dioxide 23 Anion Gap 7 BUN 23 H Creatinine 0.69 Est GFR ( Amer) > 60 Est GFR (Non-Af Amer) > 60 Glucose 93 Calcium 8.4 Total Bilirubin 1.6 H AST 172 H ALT 239 H Alkaline Phosphatase 127 H Total Protein 5.1 L Albumin 2.7 L 11/13/17 11/13/17 11/13/17 14:44 14:44 19:00 Creatine Kinase 107 CK-MB (CK-2) 6.36 H Troponin I 0.091 NT-Pro-B Natriuret Pep 23723 H 11/13/17 11/13/17 11/14/17 22:25 22:25 06:32 Creatine Kinase 132 71 CK-MB (CK-2) 6.36 H Troponin I 0.102 NT-Pro-B Natriuret Pep 11/14/17 06:32 Creatine Kinase CK-MB (CK-2) 4.00 Troponin I 0.111 NT-Pro-B Natriuret Pep EKG Comments: Telemetry strip shows sinus rhythm Impressions: Chest/Abdomen CTA 11/13/17 00:00 IMPRESSION: 1. Cardiomegaly. Changes compatible with interstitial edema with bilateral pleural effusions. 2. Aneurysmal dilatation of the ascending thoracic aorta. 3. Bibasilar atelectasis. Focal consolidation superior segment left lower lobe. 4. 8 mm nodular density left lower lobe. According to Fleischner criteria 2017, in high risk patients follow-up CT could be obtained in 6 to 12 months as further evaluation. Assessment & Plan - Diagnosis (1) Acute on chronic systolic heart failure Is this a current diagnosis for this admission?: Yes (2) Aneurysm of ascending aorta Is this a current diagnosis for this admission?: Yes (3) Elevated troponin Is this a current diagnosis for this admission?: Yes (4) Hypotension Qualifiers: Hypotension type: unspecified hypotension type Qualified Code(s): I95.9 - Hypotension, unspecified Is this a current diagnosis for this admission?: Yes (5) Mitral valve regurgitation Qualifiers: Cardiac valve disease etiology: nonrheumatic Qualified Code(s): I34.0 - Nonrheumatic mitral (valve) insufficiency Is this a current diagnosis for this admission?: Yes - Notes Notes: Dr. Lara's notes reviewed. At this point, continue supportive care as best we can. Patient has been informed that not much more can be done for him in this institution but patient refuses transfer. - Time Time with patient: Greater than 35 minutes - CODE STATUS was discussed, patient remains full code. Surrogate decision-maker unchanged. Multiple medical problems were addressed. More than 50% of the time spent coordinating care, discussing management plans with involved caregivers. Management plans discussed with involved personnels. Medical decision making was of moderate to high complexity, patient's has multiple comorbidities. Medications reviewed and adjusted accordingly: Yes
[2017-11-16] MEDS: LEVOFLOXACIN 750 MG/D5W RTU 750 MG/150 ML RTUPB IV SCH ×2 (02:56→22:57)
[2017-11-16] MEDS: SACUBITRIL/VALSARTAN 24 MG/26 MG TABLET PO SCH ×3 (03:20→23:00)
[2017-11-16] MEDS: CARVEDILOL 3.125 MG TABLET PO SCH ×3 (03:20→23:00)
[2017-11-16] MEDS: SPIRONOLACTONE 25 MG TABLET PO SCH ×3 (03:20→23:00)
[2017-11-16] MEDS: DEXTROSE 5%-WATER 250 ML with NOREPINEPHRINE BITARTRATE 4 MG IV PRN ×4 (04:02→18:30)
[2017-11-16 08:23] LABS: ABSOLUTE BASOPHILS # (AUTO) 0.1 10^3/uL (0.0-0.2); ABSOLUTE LYMPHOCYTES (AUTO) 1.7 10^3/uL (0.5-4.7); ABSOLUTE NEUT (AUTO) 6.2 10^3/uL (1.7-8.2); BASOPHILS % (AUTO) 0.6 % (0-2); EOSINOPHILS % (AUTO) 0.4 % (0-6); HEMATOCRIT 42.4 % (37.9-51.0); HEMOGLOBIN 14.3 g/dL (13.5-17.0); LYMPHOCYTES % (AUTO) 19.1 % (13-45); MEAN CORPUSCULAR HEMOGLOBIN 31.8 pg (27.0-33.4); MEAN CORPUSCULAR HGB CONC 33.7 g/dL (32.0-36.0); MEAN CORPUSCULAR VOLUME 95 fl (80-97); PLATELET COUNT 133 10^3/uL (150-450); RED BLOOD COUNT 4.48 10^6/uL (4.35-5.55); RED CELL DISTRIBUTION WIDTH 15.4 % (11.5-14.0); SEGMENTED NEUTROPHILS % (AUTO) 68.9 % (42-78); TOTAL CELLS COUNTED % (AUTO) 100 %
[2017-11-16 08:45] LABS: ALANINE AMINOTRANSFERASE 186 U/L (21-72); ALBUMIN 2.3 g/dL (3.5-5.0); ALKALINE PHOSPHATASE 91 U/L (38-126); ASPARTATE AMINO TRANSFERASE 127 U/L (17-59); BILIRUBIN,DIRECT 1.1 mg/dL (0.0-0.4); BILIRUBIN,TOTAL 1.7 mg/dL (0.2-1.3); BLOOD UREA NITROGEN 17 mg/dL (7-20); CALCIUM 8.1 mg/dL (8.4-10.2); CARBON DIOXIDE 22 mmol/L (22-30); CHLORIDE 105 mmol/L (98-107); GLUCOSE 92 mg/dL (75-110); TOTAL PROTEIN 4.7 g/dL (6.3-8.2)
[2017-11-16 08:47] LABS: ANION GAP 3 (5-19)
[2017-11-16] MEDS: CEFEPIME 1 GM/D5W RTU 1 GM/50 ML RTUPB IV SCH ×2 (09:37→22:58)
[2017-11-16] MEDS: DIGOXIN 0.125 MG TABLET PO SCH (09:54)
[2017-11-16] MEDS: ENOXAPARIN SODIUM INJ 40 MG/0.4 ML DISP.SYRIN SUBCUT SCH (09:57)
[2017-11-16] MEDS: TORSEMIDE 20 MG TABLET PO SCH (14:50)
--- NOTE | 2017-11-16 18:16 | PDOC PROGRESS REPORT ---
Subjective Progress Note for:: 11/16/17 Subjective:: Patient was seen by the bedside, he has no new complaints, presently in ICU on intravenous norepinephrine infusion, maintaining her blood pressure 90-100, not able to come off the norepinephrine infusion. Reason For Visit: SHORTNESS OF BREATH WITH UNKNOWN CAUSE TACHYCARDIA Physical Exam Vital Signs: Temp Pulse Resp BP Pulse Ox 97.8 F 69 16 90/51 L 100 11/15/17 19:30 11/16/17 07:00 11/15/17 19:30 11/15/17 21:00 11/16/17 09:19 Intake & Output 11/15/17 11/16/17 11/17/17 06:59 06:59 06:59 Intake Total 1608 975 704 Output Total 1950 1185 320 Balance -342 -210 384 Weight 67.9 kg 63.3 kg General appearance: PRESENT: no acute distress Head exam: PRESENT: atraumatic, normocephalic Eye exam: PRESENT: conjunctiva pink, EOMI, PERRLA Neck exam: PRESENT: full ROM Respiratory exam: PRESENT: clear to auscultation anand Cardiovascular exam: PRESENT: RRR, +S1, +S2 Vascular exam: PRESENT: normal capillary refill GI/Abdominal exam: PRESENT: normal bowel sounds, soft Rectal exam: PRESENT: deferred Neurological exam: PRESENT: alert, awake, oriented to person, oriented to place , oriented to time, oriented to situation, CN II-XII grossly intact Psychiatric exam: PRESENT: appropriate affect, normal mood Skin exam: PRESENT: dry, intact, warm. ABSENT: cyanosis, rash Results Laboratory Results: 11/16/17 08:14 11/16/17 08:14 11/16/17 11/16/17 08:14 08:14 WBC 9.0 RBC 4.48 Hgb 14.3 Hct 42.4 MCV 95 MCH 31.8 MCHC 33.7 RDW 15.4 H Plt Count 133 L Seg Neutrophils % 68.9 Lymphocytes % 19.1 Monocytes % 11.0 Eosinophils % 0.4 Basophils % 0.6 Absolute Neutrophils 6.2 Absolute Lymphocytes 1.7 Absolute Monocytes 1.0 Absolute Eosinophils 0.0 Absolute Basophils 0.1 Sodium 130.0 L Potassium 4.0 Chloride 105 Carbon Dioxide 22 Anion Gap 3 L BUN 17 Creatinine 0.57 Est GFR ( Amer) > 60 Est GFR (Non-Af Amer) > 60 Glucose 92 Calcium 8.1 L Total Bilirubin 1.7 H AST 127 H ALT 186 H Alkaline Phosphatase 91 Total Protein 4.7 L Albumin 2.3 L 11/13/17 11/13/17 11/13/17 14:44 14:44 19:00 Creatine Kinase 107 CK-MB (CK-2) 6.36 H Troponin I 0.091 NT-Pro-B Natriuret Pep 89780 H 11/13/17 11/13/17 11/14/17 22:25 22:25 06:32 Creatine Kinase 132 71 CK-MB (CK-2) 6.36 H Troponin I 0.102 NT-Pro-B Natriuret Pep 11/14/17 06:32 Creatine Kinase CK-MB (CK-2) 4.00 Troponin I 0.111 NT-Pro-B Natriuret Pep Impressions: Chest/Abdomen CTA 11/13/17 00:00 IMPRESSION: 1. Cardiomegaly. Changes compatible with interstitial edema with bilateral pleural effusions. 2. Aneurysmal dilatation of the ascending thoracic aorta. 3. Bibasilar atelectasis. Focal consolidation superior segment left lower lobe. 4. 8 mm nodular density left lower lobe. According to Fleischner criteria 2017, in high risk patients follow-up CT could be obtained in 6 to 12 months as further evaluation. Assessment & Plan - Diagnosis (1) Acute systolic heart failure Is this a current diagnosis for this admission?: Yes (2) Pulmonary hypertension Is this a current diagnosis for this admission?: Yes (3) Aneurysm of ascending aorta Is this a current diagnosis for this admission?: Yes (4) Mitral valve regurgitation Qualifiers: Cardiac valve disease etiology: nonrheumatic Qualified Code(s): I34.0 - Nonrheumatic mitral (valve) insufficiency Is this a current diagnosis for this admission?: Yes (5) Left lower lobe pneumonia Qualifiers: Pneumonia type: due to unspecified organism Qualified Code(s): J18.1 - Lobar pneumonia, unspecified organism Is this a current diagnosis for this admission?: Yes (6) Elevated troponin Is this a current diagnosis for this admission?: Yes (7) Hypotension Qualifiers: Hypotension type: unspecified hypotension type Qualified Code(s): I95.9 - Hypotension, unspecified Is this a current diagnosis for this admission?: Yes - Plan Summary Plan Summary: Patient to continue intravenous norepinephrine infusion, continue anti-CHF medication including beta-kal, entresto, I explained to patient that if he will stayed the weekend, I am off this , Dr. Ellsworth is contact center analyst, he will see him through the until Sunday.
--- NOTE | 2017-11-16 20:34 | PDOC PROGRESS REPORT ---
Subjective Progress Note for:: 11/16/17 Subjective:: Patient remains critically ill with low blood pressure. Currently on norepinephrine drip. Patient however looked comfortable. Reason For Visit: SHORTNESS OF BREATH WITH UNKNOWN CAUSE TACHYCARDIA Physical Exam Vital Signs: Temp Pulse Resp BP Pulse Ox 97.8 F 91 16 90/51 L 100 11/15/17 19:30 11/16/17 20:26 11/15/17 19:30 11/15/17 21:00 11/16/17 09:19 Intake & Output 11/15/17 11/16/17 11/17/17 06:59 06:59 06:59 Intake Total 1608 975 957 Output Total 1950 1185 370 Balance -342 -210 587 Weight 67.9 kg 63.3 kg Exam: GENERAL: well-nourished and in no acute distress. Alert and oriented x3 HEAD: Atraumatic, normocephalic. EYES: Pupils equal round and reactive to light, extraocular movements intact, sclera anicteric, conjunctiva are normal. ENT: TMs normal, nares patent, oropharynx clear without exudates. Moist mucous membranes. No oral ulcerations or bleeding gums noted NECK: supple without lymphadenopathy. Trachea is central. No cervical or axillary lymphadenopathy noted. Carotids are 2+, JVD 8-10 cm LUNGS: Respiration seems nonlabored, no significant accessory muscle action noted. Bibasilar fine crackles noted. CHEST: Palpation of the chest wall shows no significant chest wall tenderness. No other significant abnormalities noted. HEART: [place] [employer], No PSH, 1/6 FELIPE aortic area, 1/6 hemphill systolic murmur mitral area, no rubs, no gallops. ABDOMEN: Soft, no significant tenderness appreciated, normoactive bowel sounds. No guarding, no rebound. No rigidity noted . No masses appreciated. EXTREMITIES: Pedal pulses are 1-2+, no calf tenderness noted. No clubbing or cyanosis.1+ pedal edema noted NEUROLOGICAL: Focused neurological exam showed no significant neurologic deficit. Normal speech, no focal weakness appreciated. PSYCH: Normal mood, normal affect. Judgment and insight within normal limits. SKIN: No significant ecchymosis, rash, ulcerations or signs of pruritus noted. MUSCULOSKELETAL EXAM: No significant joint swelling noted. Results Laboratory Results: 11/16/17 08:14 11/16/17 08:14 11/16/17 11/16/17 08:14 08:14 WBC 9.0 RBC 4.48 Hgb 14.3 Hct 42.4 MCV 95 MCH 31.8 MCHC 33.7 RDW 15.4 H Plt Count 133 L Seg Neutrophils % 68.9 Lymphocytes % 19.1 Monocytes % 11.0 Eosinophils % 0.4 Basophils % 0.6 Absolute Neutrophils 6.2 Absolute Lymphocytes 1.7 Absolute Monocytes 1.0 Absolute Eosinophils 0.0 Absolute Basophils 0.1 Sodium 130.0 L Potassium 4.0 Chloride 105 Carbon Dioxide 22 Anion Gap 3 L BUN 17 Creatinine 0.57 Est GFR ( Amer) > 60 Est GFR (Non-Af Amer) > 60 Glucose 92 Calcium 8.1 L Total Bilirubin 1.7 H AST 127 H ALT 186 H Alkaline Phosphatase 91 Total Protein 4.7 L Albumin 2.3 L 11/13/17 11/13/17 11/13/17 14:44 14:44 19:00 Creatine Kinase 107 CK-MB (CK-2) 6.36 H Troponin I 0.091 NT-Pro-B Natriuret Pep 40221 H 11/13/17 11/13/17 11/14/17 22:25 22:25 06:32 Creatine Kinase 132 71 CK-MB (CK-2) 6.36 H Troponin I 0.102 NT-Pro-B Natriuret Pep 11/14/17 06:32 Creatine Kinase CK-MB (CK-2) 4.00 Troponin I 0.111 NT-Pro-B Natriuret Pep EKG Comments: Telemetry strips shows sinus rhythm without any sustained tacky or bradycardia arrhythmias. Impressions: Chest/Abdomen CTA 11/13/17 00:00 IMPRESSION: 1. Cardiomegaly. Changes compatible with interstitial edema with bilateral pleural effusions. 2. Aneurysmal dilatation of the ascending thoracic aorta. 3. Bibasilar atelectasis. Focal consolidation superior segment left lower lobe. 4. 8 mm nodular density left lower lobe. According to Fleischner criteria 2017, in high risk patients follow-up CT could be obtained in 6 to 12 months as further evaluation. Assessment & Plan - Diagnosis (1) Acute on chronic systolic heart failure Is this a current diagnosis for this admission?: Yes (2) Aneurysm of ascending aorta Is this a current diagnosis for this admission?: Yes (3) Elevated troponin Is this a current diagnosis for this admission?: Yes (4) Hypotension Qualifiers: Hypotension type: unspecified hypotension type Qualified Code(s): I95.9 - Hypotension, unspecified Is this a current diagnosis for this admission?: Yes (5) Mitral valve regurgitation Qualifiers: Cardiac valve disease etiology: nonrheumatic Qualified Code(s): I34.0 - Nonrheumatic mitral (valve) insufficiency Is this a current diagnosis for this admission?: Yes - Notes Notes: Patient remains critically ill with severe LV systolic dysfunction in addition to significant valvular disease. Patient has other chronic conditions such as severe COPD. Had long discussion with Dr. Lara yesterday about poor prognosis and need for tertiary care transfer if patient wishes to remain a full code. Apparently patient declined transfer to Dr. Lara. At this point recommend instituting vasodilator therapy if his blood pressure can tolerate. May consider titrating down epinephrine norepinephrine drip in favor of switching to either vasopressin or dopamine. Vasopressin is probably preferred. Gradually reinstitute vasodilator therapy. Overall prognosis is on the poor side. This was already explained to the patient before. - Time Time with patient: Greater than 35 minutes - Patient remains critically ill. Discussed with nurses and previously discussed with Dr. Lara. I will be available for phone consultation but my recommendations are already on the chart.
[2017-11-17] MEDS: DEXTROSE 5%-WATER 250 ML with NOREPINEPHRINE BITARTRATE 4 MG IV PRN ×4 (03:31→15:05)
--- NOTE | 2017-11-17 10:36 | PDOC PROGRESS REPORT ---
Subjective Progress Note for:: 11/17/17 Subjective:: Patient was admitted because of the congestive heart failure and hypertension Currently feeling much better patient is alert awake oriented 3 Is denied any chest pain denied any shortness of the breath Is currently in the levo drip at 6 Reason For Visit: SHORTNESS OF BREATH WITH UNKNOWN CAUSE TACHYCARDIA Physical Exam Vital Signs: Temp Pulse Resp BP Pulse Ox 97.9 F 80 16 102/53 L 100 11/17/17 08:00 11/17/17 08:00 11/17/17 08:00 11/17/17 08:00 11/17/17 08:00 Intake & Output 11/16/17 11/17/17 11/18/17 06:59 06:59 06:59 Intake Total 975 1951 Output Total 1185 870 Balance -210 1081 Weight 63.3 kg 69 kg General appearance: PRESENT: no acute distress, well-developed, well-nourished Head exam: PRESENT: atraumatic, normocephalic Eye exam: PRESENT: conjunctiva pink, EOMI, PERRLA. ABSENT: scleral icterus Ear exam: PRESENT: normal external ear exam Mouth exam: PRESENT: moist, tongue midline Neck exam: PRESENT: full ROM. ABSENT: carotid bruit, JVD, lymphadenopathy, thyromegaly Respiratory exam: PRESENT: clear to auscultation anand Cardiovascular exam: PRESENT: RRR. ABSENT: diastolic murmur, rubs, systolic murmur Pulses: PRESENT: normal dorsalis pedis pul, +2 pedal pulses bilateral Vascular exam: PRESENT: normal capillary refill GI/Abdominal exam: PRESENT: normal bowel sounds, soft. ABSENT: distended, guarding, mass, organolmegaly, rebound, tenderness Rectal exam: PRESENT: deferred Extremities exam: ABSENT: pedal edema Neurological exam: PRESENT: alert, awake, oriented to person, oriented to place , oriented to time, oriented to situation, CN II-XII grossly intact. ABSENT: motor sensory deficit Psychiatric exam: PRESENT: appropriate affect, normal mood. ABSENT: homicidal ideation, suicidal ideation Skin exam: PRESENT: dry, intact, warm. ABSENT: cyanosis, rash Results Laboratory Results: 11/16/17 08:14 11/16/17 08:14 11/13/17 11/13/17 11/13/17 14:44 14:44 19:00 Creatine Kinase 107 CK-MB (CK-2) 6.36 H Troponin I 0.091 NT-Pro-B Natriuret Pep [id number] H 11/13/17 11/13/17 11/14/17 22:25 22:25 06:32 Creatine Kinase 132 71 CK-MB (CK-2) 6.36 H Troponin I 0.102 NT-Pro-B Natriuret Pep 11/14/17 06:32 Creatine Kinase CK-MB (CK-2) 4.00 Troponin I 0.111 NT-Pro-B Natriuret Pep Impressions: Chest/Abdomen CTA 11/13/17 00:00 IMPRESSION: 1. Cardiomegaly. Changes compatible with interstitial edema with bilateral pleural effusions. 2. Aneurysmal dilatation of the ascending thoracic aorta. 3. Bibasilar atelectasis. Focal consolidation superior segment left lower lobe. 4. 8 mm nodular density left lower lobe. According to Fleischner criteria 2017, in high risk patients follow-up CT could be obtained in 6 to 12 months as further evaluation. Assessment & Plan - Diagnosis (1) Acute on chronic systolic heart failure Is this a current diagnosis for this admission?: Yes Plan: Continues to current medications as per discussed with the cardiology suggest to start the patient on midron try to wean her from the owen drip (2) Aneurysm of ascending aorta Is this a current diagnosis for this admission?: Yes (3) Hypotension Qualifiers: Hypotension type: unspecified hypotension type Qualified Code(s): I95.9 - Hypotension, unspecified Is this a current diagnosis for this admission?: Yes (4) Pulmonary hypertension Is this a current diagnosis for this admission?: Yes - Time Time Spent with patient: 15-24 minutes Medications reviewed and adjusted accordingly: Yes Anticipated discharge: Other Within: Other - Inpatient Certification Medical Necessity: Need Close Monitoring Due to Risk of Patient Decompensation Post Hospital Care: D/C Boilers Inspector Documentation - Plan Summary Plan Summary: Continues to current medications overall patient's prognosis is poor with the end-stage CHF patients refused to transport to the tertiary center as per discussed with the cardiology pretty much nothing they can offer at this point discussed with the patient and try to continues to current medication
[2017-11-17] MEDS: CEFEPIME 1 GM/D5W RTU 1 GM/50 ML RTUPB IV SCH ×2 (10:40→22:56)
[2017-11-17] MEDS: DIGOXIN 0.125 MG TABLET PO SCH (10:41)
[2017-11-17] MEDS: SACUBITRIL/VALSARTAN 24 MG/26 MG TABLET PO SCH ×2 (10:42→22:57)
[2017-11-17] MEDS: ENOXAPARIN SODIUM INJ 40 MG/0.4 ML DISP.SYRIN SUBCUT SCH (10:42)
[2017-11-17] MEDS: CARVEDILOL 3.125 MG TABLET PO SCH ×2 (10:51→22:53)
[2017-11-17] MEDS: SPIRONOLACTONE 25 MG TABLET PO SCH ×2 (10:51→22:57)
[2017-11-17] MEDS: MIDODRINE HCL 5 MG TABLET PO SCH ×2 (13:28→17:14)
[2017-11-17] MEDS: TORSEMIDE 20 MG TABLET PO SCH (13:30)
[2017-11-17 16:26] LABS: ANION GAP 5 (5-19); BLOOD UREA NITROGEN 17 mg/dL (7-20); CALCIUM 8.7 mg/dL (8.4-10.2); CARBON DIOXIDE 28 mmol/L (22-30); CHLORIDE 100 mmol/L (98-107); GLUCOSE 102 mg/dL (75-110); MAGNESIUM 1.9 mg/dL (1.6-2.3); POTASSIUM 4.2 mmol/L (3.6-5.0); SODIUM 133.4 mmol/L (137-145)
--- NOTE | 2017-11-17 17:32 | EKG REPORT ---
SEVERITY:- ABNORMAL ECG - SINUS RHYTHM LEFT ATRIAL ABNORMALITY LEFT ANTERIOR FASCICULAR BLOCK CONSIDER ANTEROSEPTAL INFARCT REPOL ABNRM SUGGESTS ISCHEMIA, ANT-LAT LEADS : Confirmed by: Adam Kurtz MD 17-Nov-2017 17:31:49
[2017-11-17] MEDS: LEVOFLOXACIN 750 MG/D5W RTU 750 MG/150 ML RTUPB IV SCH (22:56)
[2017-11-18] MEDS: SACUBITRIL/VALSARTAN 24 MG/26 MG TABLET PO SCH ×2 (09:32→22:55)
[2017-11-18] MEDS: DIGOXIN 0.125 MG TABLET PO SCH (09:33)
[2017-11-18] MEDS: MIDODRINE HCL 5 MG TABLET PO SCH ×3 (09:33→17:30)
[2017-11-18] MEDS: ENOXAPARIN SODIUM INJ 40 MG/0.4 ML DISP.SYRIN SUBCUT SCH (09:35)
[2017-11-18] MEDS: SPIRONOLACTONE 25 MG TABLET PO SCH ×2 (09:39→22:55)
[2017-11-18] MEDS: CARVEDILOL 3.125 MG TABLET PO SCH ×2 (09:39→22:55)
[2017-11-18] MEDS: CEFEPIME 1 GM/D5W RTU 1 GM/50 ML RTUPB IV SCH ×2 (09:40→22:48)
--- NOTE | 2017-11-18 12:05 | PDOC PROGRESS REPORT ---
Subjective Progress Note for:: 11/18/17 Subjective:: Patient's currently doing fair denied any chest pain denied any shortness of breath Require owen drip episode of V. tach yesterday Denied any other events Reason For Visit: SHORTNESS OF BREATH WITH UNKNOWN CAUSE TACHYCARDIA Physical Exam Vital Signs: Temp Pulse Resp BP Pulse Ox 97.7 F 78 27 H 94/49 L 100 11/18/17 10:00 11/18/17 10:00 11/18/17 10:00 11/18/17 10:00 11/18/17 10:00 Intake & Output 11/17/17 11/18/17 11/19/17 06:59 06:59 06:59 Intake Total 1951 1043 237 Output Total 870 1085 Balance 1081 -42 237 Weight 69 kg 70.4 kg General appearance: PRESENT: no acute distress, well-developed, well-nourished Head exam: PRESENT: atraumatic, normocephalic Eye exam: PRESENT: conjunctiva pink, EOMI, PERRLA. ABSENT: scleral icterus Ear exam: PRESENT: normal external ear exam Mouth exam: PRESENT: moist, tongue midline Neck exam: PRESENT: full ROM. ABSENT: carotid bruit, JVD, lymphadenopathy, thyromegaly Respiratory exam: PRESENT: clear to auscultation anand Cardiovascular exam: PRESENT: RRR. ABSENT: diastolic murmur, rubs, systolic murmur Pulses: PRESENT: normal dorsalis pedis pul, +2 pedal pulses bilateral Vascular exam: PRESENT: normal capillary refill GI/Abdominal exam: PRESENT: normal bowel sounds, soft. ABSENT: distended, guarding, mass, organolmegaly, rebound, tenderness Rectal exam: PRESENT: deferred Neurological exam: PRESENT: alert, awake, oriented to person, oriented to place , oriented to time, oriented to situation, CN II-XII grossly intact. ABSENT: motor sensory deficit Psychiatric exam: PRESENT: appropriate affect, normal mood. ABSENT: homicidal ideation, suicidal ideation Skin exam: PRESENT: dry, intact, warm. ABSENT: cyanosis, rash Results Laboratory Results: 11/16/17 08:14 11/17/17 15:49 Sodium 133.4 L Potassium 4.2 Chloride 100 Carbon Dioxide 28 Anion Gap 5 BUN 17 Creatinine 0.76 Est GFR ( Amer) > 60 Est GFR (Non-Af Amer) > 60 Glucose 102 Calcium 8.7 Magnesium 1.9 11/13/17 11/13/17 11/13/17 14:44 14:44 19:00 Creatine Kinase 107 CK-MB (CK-2) 6.36 H Troponin I 0.091 NT-Pro-B Natriuret Pep 24132 H 11/13/17 11/13/17 11/14/17 22:25 22:25 06:32 Creatine Kinase 132 71 CK-MB (CK-2) 6.36 H Troponin I 0.102 NT-Pro-B Natriuret Pep 11/14/17 06:32 Creatine Kinase CK-MB (CK-2) 4.00 Troponin I 0.111 NT-Pro-B Natriuret Pep Impressions: Chest/Abdomen CTA 11/13/17 00:00 IMPRESSION: 1. Cardiomegaly. Changes compatible with interstitial edema with bilateral pleural effusions. 2. Aneurysmal dilatation of the ascending thoracic aorta. 3. Bibasilar atelectasis. Focal consolidation superior segment left lower lobe. 4. 8 mm nodular density left lower lobe. According to Fleischner criteria 2017, in high risk patients follow-up CT could be obtained in 6 to 12 months as further evaluation. Assessment & Plan - Diagnosis (1) Acute on chronic systolic heart failure Is this a current diagnosis for this admission?: Yes Plan: We will check the potassium and magnesium Continue current medication Discussed with the cardiology very poor prognosis (2) Aneurysm of ascending aorta Is this a current diagnosis for this admission?: Yes (3) Hypotension Qualifiers: Hypotension type: unspecified hypotension type Qualified Code(s): I95.9 - Hypotension, unspecified Is this a current diagnosis for this admission?: Yes Plan: Continues to support medication (4) Pulmonary hypertension Is this a current diagnosis for this admission?: Yes Plan: stable - Time Time Spent with patient: 15-24 minutes Medications reviewed and adjusted accordingly: Yes Anticipated discharge: Other Within: Other - Inpatient Certification Medical Necessity: Need Close Monitoring Due to Risk of Patient Decompensation Post Hospital Care: D/C Financial Aid Advisor Documentation - Plan Summary Plan Summary: Continues to current medications with external discussed with the cardiology patient does not have a much to offer and continues to current medication with poor prognosis
[2017-11-18 13:26] LABS: ANION GAP 5 (5-19); BLOOD UREA NITROGEN 15 mg/dL (7-20); CALCIUM 8.5 mg/dL (8.4-10.2); CARBON DIOXIDE 22 mmol/L (22-30); CHLORIDE 104 mmol/L (98-107); GLUCOSE 103 mg/dL (75-110); MAGNESIUM 1.8 mg/dL (1.6-2.3); SODIUM 131.1 mmol/L (137-145)
[2017-11-18] MEDS: TORSEMIDE 20 MG TABLET PO SCH (13:28)
[2017-11-18] MEDS: DEXTROSE 5%-WATER 250 ML with NOREPINEPHRINE BITARTRATE 4 MG IV PRN ×4 (13:28→21:52)
[2017-11-18] MEDS: LEVOFLOXACIN 750 MG/D5W RTU 750 MG/150 ML RTUPB IV SCH (22:50)
[2017-11-19] MEDS: SPIRONOLACTONE 25 MG TABLET PO SCH ×2 (10:25→21:53)
[2017-11-19] MEDS: CEFEPIME 1 GM/D5W RTU 1 GM/50 ML RTUPB IV SCH ×2 (10:26→21:51)
[2017-11-19] MEDS: DIGOXIN 0.125 MG TABLET PO SCH (10:26)
[2017-11-19] MEDS: MIDODRINE HCL 5 MG TABLET PO SCH ×3 (10:26→17:41)
[2017-11-19] MEDS: ENOXAPARIN SODIUM INJ 40 MG/0.4 ML DISP.SYRIN SUBCUT SCH (10:27)
[2017-11-19] MEDS: SACUBITRIL/VALSARTAN 24 MG/26 MG TABLET PO SCH ×2 (10:35→21:53)
[2017-11-19] MEDS: CARVEDILOL 3.125 MG TABLET PO SCH ×2 (10:35→21:53)
--- NOTE | 2017-11-19 13:29 | PDOC PROGRESS REPORT ---
Subjective Progress Note for:: 11/19/17 Subjective:: Events of the weekend's reviewed. Patient seems much improved overall. He is actually asking to be discharged. Patient may have some reduced insight into his illness. Currently off vasopressors drips. Reason For Visit: SHORTNESS OF BREATH WITH UNKNOWN CAUSE TACHYCARDIA Physical Exam Vital Signs: Temp Pulse Resp BP Pulse Ox 97.7 F 74 29 H 100/44 L 90 L 11/19/17 12:00 11/19/17 12:00 11/19/17 12:00 11/19/17 12:00 11/19/17 12:00 Intake & Output 11/18/17 11/19/17 11/20/17 06:59 06:59 06:59 Intake Total 1043 2310 280 Output Total 1085 1425 Balance -42 885 280 Weight 70.4 kg 71.1 kg Exam: GENERAL: well-nourished and in no acute distress. Alert and oriented x3 HEAD: Atraumatic, normocephalic. EYES: Pupils equal round and reactive to light, extraocular movements intact, sclera anicteric, conjunctiva are normal. ENT: TMs normal, nares patent, oropharynx clear without exudates. Moist mucous membranes. No oral ulcerations or bleeding gums noted NECK: supple without lymphadenopathy. Trachea is central. No cervical or axillary lymphadenopathy noted. Carotids are 2+, JVD WNL LUNGS: Respiration seems nonlabored, no significant accessory muscle action noted. Breath sounds clear to auscultation bilaterally and equal noted. No wheezes rales or rhonchi noted. No significant dullness noted on percussion. CHEST: Palpation of the chest wall shows no significant chest wall tenderness. No other significant abnormalities noted. HEART: [place] [employer], No PSH, 1/6 FELIPE aortic area, 1/6 hemphill systolic murmur mitral area, no rubs, no gallops. ABDOMEN: Soft, no significant tenderness appreciated, normoactive bowel sounds. No guarding, no rebound. No rigidity noted . No masses appreciated. EXTREMITIES: Pedal pulses are 1-2+, no calf tenderness noted. No clubbing or cyanosis.trace to 1+ pedal edema noted NEUROLOGICAL: Focused neurological exam showed no significant neurologic deficit. Normal speech, no focal weakness appreciated. PSYCH: Normal mood, normal affect. Judgment and insight within normal limits. SKIN: No significant ecchymosis, rash, ulcerations or signs of pruritus noted. MUSCULOSKELETAL EXAM: No significant joint swelling noted. Results Laboratory Results: 11/16/17 08:14 11/18/17 12:54 11/18/17 12:54 Sodium 131.1 L Potassium 4.0 Chloride 104 Carbon Dioxide 22 Anion Gap 5 BUN 15 Creatinine 0.48 L Est GFR ( Amer) > 60 Est GFR (Non-Af Amer) > 60 Glucose 103 Calcium 8.5 Magnesium 1.8 11/13/17 11/13/17 11/13/17 14:44 14:44 19:00 Creatine Kinase 107 CK-MB (CK-2) 6.36 H Troponin I 0.091 NT-Pro-B Natriuret Pep 02048 H 11/13/17 11/13/17 11/14/17 22:25 22:25 06:32 Creatine Kinase 132 71 CK-MB (CK-2) 6.36 H Troponin I 0.102 NT-Pro-B Natriuret Pep 11/14/17 06:32 Creatine Kinase CK-MB (CK-2) 4.00 Troponin I 0.111 NT-Pro-B Natriuret Pep Impressions: Chest/Abdomen CTA 11/13/17 00:00 IMPRESSION: 1. Cardiomegaly. Changes compatible with interstitial edema with bilateral pleural effusions. 2. Aneurysmal dilatation of the ascending thoracic aorta. 3. Bibasilar atelectasis. Focal consolidation superior segment left lower lobe. 4. 8 mm nodular density left lower lobe. According to Fleischner criteria 2017, in high risk patients follow-up CT could be obtained in 6 to 12 months as further evaluation. Assessment & Plan - Diagnosis (1) Acute on chronic systolic heart failure Is this a current diagnosis for this admission?: Yes (2) Aneurysm of ascending aorta Is this a current diagnosis for this admission?: Yes (3) Elevated troponin Is this a current diagnosis for this admission?: Yes (4) Hypotension Qualifiers: Hypotension type: unspecified hypotension type Qualified Code(s): I95.9 - Hypotension, unspecified Is this a current diagnosis for this admission?: Yes (5) Mitral valve regurgitation Qualifiers: Cardiac valve disease etiology: nonrheumatic Qualified Code(s): I34.0 - Nonrheumatic mitral (valve) insufficiency Is this a current diagnosis for this admission?: Yes - Notes Notes: Events over the weekend is reviewed. Dr. Ellsworth did call me about this patient and was able to advise him on phone over the weekend. Acute on chronic congestive heart failure: Patient's previous echocardiogram reviewed. It showed severely depressed LVEF as well as moderate to severe mitral regurgitation. This portends a poor prognosis. Previous recommendations remain. Gradually optimize vasodilator therapy such as entresto , beta-blockers etc. Aneurysm of the ascending aorta: Currently stable. Elevated troponin I: Possibly related to CHF. CTA of the chest reviewed I did not see much coronary calcification. Continue aspirin, statin therapy. Hypotension: Continue patient on Midodrin. Hopefully this will allow us to gradually optimize his therapy for cardiomyopathy and CHF. Mitral valve regurgitation: Patient may benefit from mitral valve clip but again may not be a candidate for it because of severely depressed LVEF already. At this point feel that patient's long-term prognosis is on the poor side. - Time Time with patient: Greater than 35 minutes - CODE STATUS was discussed, patient remains full code. Surrogate decision-maker unchanged. Multiple medical problems were addressed. More than 50% of the time spent coordinating care, discussing management plans with involved caregivers. Management plans discussed with involved personnels. Medical decision making was of moderate to high complexity, patient's has multiple comorbidities. Medications reviewed and adjusted accordingly: Yes
[2017-11-19] MEDS: TORSEMIDE 20 MG TABLET PO SCH (13:31)
--- NOTE | 2017-11-19 20:40 | PDOC PROGRESS REPORT ---
Subjective Progress Note for:: 11/19/17 Subjective:: Patient was seen by the bedside, still presently on vasopressor, he will be downgraded from ICU to IMCU, we will change the vasopressor for IV norepinephrine to midodrine Reason For Visit: SHORTNESS OF BREATH WITH UNKNOWN CAUSE TACHYCARDIA Physical Exam Vital Signs: Temp Pulse Resp BP Pulse Ox 97.7 F 91 22 H 94/42 L 97 11/19/17 19:22 11/19/17 18:00 11/19/17 18:00 11/19/17 18:00 11/19/17 18:00 Intake & Output 11/18/17 11/19/17 11/20/17 06:59 06:59 06:59 Intake Total 1043 2310 631 Output Total 1085 1425 2080 Balance -42 5 -1449 Weight 70.4 kg 71.1 kg General appearance: PRESENT: no acute distress Eye exam: PRESENT: PERRLA Respiratory exam: PRESENT: clear to auscultation anand Cardiovascular exam: PRESENT: +S1, +S2 GI/Abdominal exam: PRESENT: soft Neurological exam: PRESENT: alert, CN II-XII grossly intact Results Laboratory Results: 11/16/17 08:14 11/18/17 12:54 11/13/17 11/13/17 11/13/17 14:44 14:44 19:00 Creatine Kinase 107 CK-MB (CK-2) 6.36 H Troponin I 0.091 NT-Pro-B Natriuret Pep 95819 H 11/13/17 11/13/17 11/14/17 22:25 22:25 06:32 Creatine Kinase 132 71 CK-MB (CK-2) 6.36 H Troponin I 0.102 NT-Pro-B Natriuret Pep 11/14/17 06:32 Creatine Kinase CK-MB (CK-2) 4.00 Troponin I 0.111 NT-Pro-B Natriuret Pep Impressions: Chest/Abdomen CTA 11/13/17 00:00 IMPRESSION: 1. Cardiomegaly. Changes compatible with interstitial edema with bilateral pleural effusions. 2. Aneurysmal dilatation of the ascending thoracic aorta. 3. Bibasilar atelectasis. Focal consolidation superior segment left lower lobe. 4. 8 mm nodular density left lower lobe. According to Fleischner criteria 2017, in high risk patients follow-up CT could be obtained in 6 to 12 months as further evaluation. Assessment & Plan - Diagnosis (1) Acute systolic heart failure Is this a current diagnosis for this admission?: Yes (2) Pulmonary hypertension Is this a current diagnosis for this admission?: Yes (3) Aneurysm of ascending aorta Is this a current diagnosis for this admission?: Yes (4) Mitral valve regurgitation Qualifiers: Cardiac valve disease etiology: nonrheumatic Qualified Code(s): I34.0 - Nonrheumatic mitral (valve) insufficiency Is this a current diagnosis for this admission?: Yes (5) Left lower lobe pneumonia Qualifiers: Pneumonia type: due to unspecified organism Qualified Code(s): J18.1 - Lobar pneumonia, unspecified organism Is this a current diagnosis for this admission?: Yes (6) Elevated troponin Is this a current diagnosis for this admission?: Yes (7) Hypotension Qualifiers: Hypotension type: unspecified hypotension type Qualified Code(s): I95.9 - Hypotension, unspecified Is this a current diagnosis for this admission?: Yes - Plan Summary Plan Summary: Patient to be transferred to [facility] floor
[2017-11-19 20:53] LABS: ABSOLUTE BASOPHILS # (AUTO) 0.1 10^3/uL (0.0-0.2); ABSOLUTE EOSINOPHILS # (AUTO) 0.1 10^3/uL (0.0-0.6); ABSOLUTE LYMPHOCYTES (AUTO) 1.9 10^3/uL (0.5-4.7); ABSOLUTE MONOCYTES (AUTO) 1.4 10^3/uL (0.1-1.4); ABSOLUTE NEUT (AUTO) 6.6 10^3/uL (1.7-8.2); BASOPHILS % (AUTO) 0.6 % (0-2); EOSINOPHILS % (AUTO) 1.1 % (0-6); HEMATOCRIT 47.3 % (37.9-51.0); HEMOGLOBIN 15.8 g/dL (13.5-17.0); MEAN CORPUSCULAR HEMOGLOBIN 31.4 pg (27.0-33.4); MEAN CORPUSCULAR HGB CONC 33.4 g/dL (32.0-36.0); MEAN CORPUSCULAR VOLUME 94 fl (80-97); MONOCYTES % (AUTO) 13.6 % (3-13); PLATELET COUNT 139 10^3/uL (150-450); RED BLOOD COUNT 5.03 10^6/uL (4.35-5.55); RED CELL DISTRIBUTION WIDTH 16.5 % (11.5-14.0); SEGMENTED NEUTROPHILS % (AUTO) 65.7 % (42-78); TOTAL CELLS COUNTED % (AUTO) 100 %
[2017-11-19 21:17] LABS: ALANINE AMINOTRANSFERASE 99 U/L (21-72); ALBUMIN 2.6 g/dL (3.5-5.0); ALKALINE PHOSPHATASE 117 U/L (38-126); ANION GAP 5 (5-19); ASPARTATE AMINO TRANSFERASE 44 U/L (17-59); BILIRUBIN,DIRECT 0.9 mg/dL (0.0-0.4); BILIRUBIN,TOTAL 1.2 mg/dL (0.2-1.3); BLOOD UREA NITROGEN 15 mg/dL (7-20); CALCIUM 8.7 mg/dL (8.4-10.2); CARBON DIOXIDE 27 mmol/L (22-30); CHLORIDE 104 mmol/L (98-107); GLUCOSE 69 mg/dL (75-110); POTASSIUM 3.8 mmol/L (3.6-5.0); SODIUM 135.9 mmol/L (137-145); TOTAL PROTEIN 5.1 g/dL (6.3-8.2)
[2017-11-19] MEDS: LEVOFLOXACIN 750 MG/D5W RTU 750 MG/150 ML RTUPB IV SCH (21:52)
[2017-11-20 06:05] LABS: ABSOLUTE BASOPHILS # (AUTO) 0.1 10^3/uL (0.0-0.2); ABSOLUTE EOSINOPHILS # (AUTO) 0.1 10^3/uL (0.0-0.6); ABSOLUTE LYMPHOCYTES (AUTO) 1.8 10^3/uL (0.5-4.7); ABSOLUTE NEUT (AUTO) 4.7 10^3/uL (1.7-8.2); BASOPHILS % (AUTO) 1.3 % (0-2); HEMATOCRIT 44.7 % (37.9-51.0); HEMOGLOBIN 15.2 g/dL (13.5-17.0); LYMPHOCYTES % (AUTO) 23.2 % (13-45); MEAN CORPUSCULAR HEMOGLOBIN 31.8 pg (27.0-33.4); MEAN CORPUSCULAR VOLUME 93 fl (80-97); MONOCYTES % (AUTO) 12.9 % (3-13); PLATELET COUNT 115 10^3/uL (150-450); RED BLOOD COUNT 4.79 10^6/uL (4.35-5.55); RED CELL DISTRIBUTION WIDTH 15.9 % (11.5-14.0); SEGMENTED NEUTROPHILS % (AUTO) 61.6 % (42-78); TOTAL CELLS COUNTED % (AUTO) 100 %; WHITE BLOOD COUNT 7.6 10^3/uL (4.0-10.5)
[2017-11-20 06:27] LABS: ALANINE AMINOTRANSFERASE 87 U/L (21-72); ALBUMIN 2.4 g/dL (3.5-5.0); ALKALINE PHOSPHATASE 95 U/L (38-126); ANION GAP 5 (5-19); ASPARTATE AMINO TRANSFERASE 42 U/L (17-59); BILIRUBIN,TOTAL 1.4 mg/dL (0.2-1.3); BLOOD UREA NITROGEN 15 mg/dL (7-20); CALCIUM 8.6 mg/dL (8.4-10.2); CARBON DIOXIDE 28 mmol/L (22-30); CHLORIDE 103 mmol/L (98-107); GLUCOSE 78 mg/dL (75-110); POTASSIUM 4.2 mmol/L (3.6-5.0); SODIUM 135.7 mmol/L (137-145); TOTAL PROTEIN 4.7 g/dL (6.3-8.2)
--- NOTE | 2017-11-20 08:33 | EKG REPORT ---
SEVERITY:- ABNORMAL ECG - SINUS RHYTHM ANTERIOR INFARCT, AGE INDETERMINATE : Confirmed by: Malena Craven 20-Nov-2017 08:33:01
[2017-11-20] MEDS: MIDODRINE HCL 5 MG TABLET PO SCH ×2 (09:18→14:51)
[2017-11-20] MEDS: CEFEPIME 1 GM/D5W RTU 1 GM/50 ML RTUPB IV SCH (09:18)
[2017-11-20] MEDS: SACUBITRIL/VALSARTAN 24 MG/26 MG TABLET PO SCH (09:18)
[2017-11-20] MEDS: SPIRONOLACTONE 25 MG TABLET PO SCH (09:19)
[2017-11-20] MEDS: DIGOXIN 0.125 MG TABLET PO SCH (09:19)
[2017-11-20] MEDS: ENOXAPARIN SODIUM INJ 40 MG/0.4 ML DISP.SYRIN SUBCUT SCH (10:22)
[2017-11-20] MEDS: CARVEDILOL 3.125 MG TABLET PO SCH (10:24)
[2017-11-20] MEDS: TORSEMIDE 20 MG TABLET PO SCH (14:49)
[2017-11-20 16:44] VITALS: BP 94/42
--- NOTE | 2017-11-20 17:02 | PDOC DISCHARGE SUMMARY ---
General - Admit/Disc Date/PCP Admission Date/Primary Care Provider: 11/13/17 13:41 Discharge Date: 11/20/17 - Discharge Diagnosis (1) Acute systolic heart failure Is this a current diagnosis for this admission?: Yes (2) Pulmonary hypertension Is this a current diagnosis for this admission?: Yes (3) Aneurysm of ascending aorta Is this a current diagnosis for this admission?: Yes (4) Mitral valve regurgitation Is this a current diagnosis for this admission?: Yes (5) Left lower lobe pneumonia Is this a current diagnosis for this admission?: Yes (6) Elevated troponin Is this a current diagnosis for this admission?: Yes (7) Hypotension Is this a current diagnosis for this admission?: Yes (8) History of alcohol abuse Is this a current diagnosis for this admission?: Yes (9) Alcoholic liver disease Is this a current diagnosis for this admission?: Yes (10) COPD (chronic obstructive pulmonary disease) Is this a current diagnosis for this admission?: Yes - Additional Information Resuscitation Status: Full Code Discharge Diet: Cardiac Discharge Activity: Activity As Tolerated, Balance Activity w/Rest, Weigh Daily Prescriptions: Albuterol Sulfate [Ventolin Hfa] 2 puff IH Q6HP PRN #2 hfa.aer.ad PRN Reason: WHEEZING Carvedilol [Coreg 3.125 mg Tablet] 3.125 mg PO Q12 #60 tablet Midodrine HCl [Proamatine 5 mg Tablet] 5 mg PO TID #90 tablet Sacubitril/Valsartan [Entresto 24 mg/26 mg Tablet] 1 tab PO Q12 #60 tablet Spironolactone [Aldactone 25 mg Tablet] 12.5 mg PO Q12 #60 tablet Torsemide [Demadex 20 mg Tablet] 10 mg PO DAILY@1400 #30 tablet Umeclidinium Brm/Vilanterol Tr [Anoro Ellipta 62.5-25 Mcg INH] 1 each IH DAILY # 1 blst.w.dev Home Medications: Albuterol Sulfate [Ventolin Hfa] 2 puff IH Q6HP PRN #2 hfa.aer.ad 11/20/17 Carvedilol [Coreg 3.125 mg Tablet] 3.125 mg PO Q12 #60 tablet 11/20/17 Midodrine HCl [Proamatine 5 mg Tablet] 5 mg PO TID #90 tablet 11/20/17 Sacubitril/Valsartan [Entresto 24 mg/26 mg Tablet] 1 tab PO Q12 #60 tablet 11/20 Spironolactone [Aldactone 25 mg Tablet] 12.5 mg PO Q12 #60 tablet 11/20/17 Torsemide [Demadex 20 mg Tablet] 10 mg PO DAILY@1400 #30 tablet 11/20/17 Umeclidinium Brm/Vilanterol Tr [Anoro Ellipta 62.5-25 Mcg INH] 1 each IH DAILY # 1 blst.w.dev 11/20/17 History of Present Illness History of Present Illness: SONA JAQUEZ is a 62 year old male, he came to the office today for evaluation of progressive shortness of breath, he said he cannot walk any distance without getting short of breath, in the office he was evaluated, the oxygen saturation was low, he was admitted directly from the office to the hospital, CTA chest was done, it showed centrilobular emphysema, cardiomegaly, interstitial edema with bilateral pleural effusion also found was a aneurysm of the ascending aorta ,And also focal consolidation in the superior segment of the left lower lobe, the BNP was elevated, he has clinical CHF with bilateral lower edema, history of alcohol abuse with alcohol hepatitis though he said he has stopped drinking alcohol for the last 4 weeks. Patient was admitted, 2D echo was done on 2017, it showed left ventricle ejection fraction 20%, severe global hypokinesis of left ventricle Hospital Course Hospital Course: Patient 62-year-old was admitted for the management of acute systolic heart failure, pneumonia, hypotension. He was treated initially with low dose furosemide infusion, he has associated focal consolidation in the superior segment of the left lower lobe, he was treated with IV antibiotic he also had low blood pressure initially treated with intravenous dopamine, dobutamine, was transferred to ICU to be treated with intravenous norepinephrine. He was started on anti-CHF regimen including beta-kal carvedilol, entresto,, spironolactone. He also had IV antibiotic, patient was seen by cardiology Dr. Craven, Dr. Craven suggested the patient should be transferred to tertiary care to be considered for, ventricular assist device but patient declined the option. 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 Patient actually improved significantly with treatment effect better he has less lower extremity edema on his chest is clear on auscultation. Patient insisted on going home today in fact he wants to go home since the last 3 days but he was convinced to stay a few more days to optimize management. Dr. Craven order a LifeVest for this patient, it is yet to be delivered the patient was to go home today, the LifeVest to be delivered to him tomorrow at his residence. He was advised against the use of alcohol and tobacco because of the cardiomyopathy and liver disease Physical Exam Vital Signs: Temp Pulse Resp BP Pulse Ox 97.4 F 71 20 94/42 L 97 11/20/17 16:42 11/20/17 16:42 11/20/17 16:42 11/20/17 16:42 11/20/17 16:42 Intake & Output 11/19/17 11/20/17 11/21/17 06:59 06:59 06:59 Intake Total 2310 631 458 Output Total 1425 2280 Balance 885 -1649 458 Weight 71.1 kg 65.8 kg General appearance: PRESENT: no acute distress, well-developed, well-nourished Head exam: PRESENT: atraumatic, normocephalic Eye exam: PRESENT: conjunctiva pink, EOMI, PERRLA Ear exam: PRESENT: normal external ear exam Mouth exam: PRESENT: moist, tongue midline Neck exam: PRESENT: full ROM Respiratory exam: PRESENT: clear to auscultation anand Cardiovascular exam: PRESENT: RRR, +S1, +S2 Vascular exam: PRESENT: normal capillary refill GI/Abdominal exam: PRESENT: normal bowel sounds, soft Rectal exam: PRESENT: deferred Neurological exam: PRESENT: alert, CN II-XII grossly intact Psychiatric exam: PRESENT: appropriate affect, normal mood Skin exam: PRESENT: dry, intact, warm Results Laboratory Results: 11/20/17 05:54 11/20/17 05:54 11/19/17 11/19/17 11/20/17 20:45 20:45 05:54 WBC 10.0 7.6 RBC 5.03 4.79 Hgb 15.8 15.2 Hct 47.3 44.7 MCV 94 93 MCH 31.4 31.8 MCHC 33.4 34.0 RDW 16.5 H 15.9 H Plt Count 139 L 115 L Seg Neutrophils % 65.7 61.6 Lymphocytes % 19.0 23.2 Monocytes % 13.6 H 12.9 Eosinophils % 1.1 1.0 Basophils % 0.6 1.3 Absolute Neutrophils 6.6 4.7 Absolute Lymphocytes 1.9 1.8 Absolute Monocytes 1.4 1.0 Absolute Eosinophils 0.1 0.1 Absolute Basophils 0.1 0.1 Sodium 135.9 L Potassium 3.8 Chloride 104 Carbon Dioxide 27 Anion Gap 5 BUN 15 Creatinine 0.62 Est GFR ( Amer) > 60 Est GFR (Non-Af Amer) > 60 Glucose 69 L Calcium 8.7 Total Bilirubin 1.2 AST 44 ALT 99 H Alkaline Phosphatase 117 Total Protein 5.1 L Albumin 2.6 L 11/20/17 05:54 WBC RBC Hgb Hct MCV MCH MCHC RDW Plt Count Seg Neutrophils % Lymphocytes % Monocytes % Eosinophils % Basophils % Absolute Neutrophils Absolute Lymphocytes Absolute Monocytes Absolute Eosinophils Absolute Basophils Sodium 135.7 L Potassium 4.2 Chloride 103 Carbon Dioxide 28 Anion Gap 5 BUN 15 Creatinine 0.69 Est GFR ( Amer) > 60 Est GFR (Non-Af Amer) > 60 Glucose 78 Calcium 8.6 Total Bilirubin 1.4 H AST 42 ALT 87 H Alkaline Phosphatase 95 Total Protein 4.7 L Albumin 2.4 L 11/13/17 11/13/17 11/13/17 14:44 14:44 19:00 Creatine Kinase 107 CK-MB (CK-2) 6.36 H Troponin I 0.091 NT-Pro-B Natriuret Pep 22157 H 11/13/17 11/13/17 11/14/17 22:25 22:25 06:32 Creatine Kinase 132 71 CK-MB (CK-2) 6.36 H Troponin I 0.102 NT-Pro-B Natriuret Pep 11/14/17 06:32 Creatine Kinase CK-MB (CK-2) 4.00 Troponin I 0.111 NT-Pro-B Natriuret Pep Impressions: Chest/Abdomen CTA 11/13/17 00:00 IMPRESSION: 1. Cardiomegaly. Changes compatible with interstitial edema with bilateral pleural effusions. 2. Aneurysmal dilatation of the ascending thoracic aorta. 3. Bibasilar atelectasis. Focal consolidation superior segment left lower lobe. 4. 8 mm nodular density left lower lobe. According to Fleischner criteria 2017, in high risk patients follow-up CT could be obtained in 6 to 12 months as further evaluation.
--- NOTE | 2017-11-20 19:47 | PDOC PROGRESS REPORT ---
Subjective Progress Note for:: 11/20/17 Subjective:: Patient was seen on morning rounds. Discussed need for LifeVest placement. He had some understanding of LifeVest. Have written orders and filled up a light vest application form. Patient unsure whether he wants to wait for this to be applied. Patient understands increased risk of sudden cardiac . He has been told that numerous times during this hospitalization. Also discussed with Dr. Lara. Telemetry strip shows no sustained tachycardia or bradycardia arrhythmias. Reason For Visit: SHORTNESS OF BREATH WITH UNKNOWN CAUSE TACHYCARDIA Physical Exam Vital Signs: Temp Pulse Resp BP Pulse Ox 97.4 F 71 20 94/42 L 97 11/20/17 16:42 11/20/17 16:42 11/20/17 16:42 11/20/17 16:42 11/20/17 16:42 Intake & Output 11/19/17 11/20/17 11/21/17 06:59 06:59 06:59 Intake Total 2310 631 458 Output Total 1425 2280 Balance 885 -1649 458 Weight 71.1 kg 65.8 kg Exam: GENERAL: well-nourished and in no acute distress. Alert and oriented x3 HEAD: Atraumatic, normocephalic. EYES: Pupils equal round and reactive to light, extraocular movements intact, sclera anicteric, conjunctiva are normal. ENT: TMs normal, nares patent, oropharynx clear without exudates. Moist mucous membranes. No oral ulcerations or bleeding gums noted NECK: supple without lymphadenopathy. Trachea is central. No cervical or axillary lymphadenopathy noted. Carotids are 2+, JVD WNL LUNGS: Respiration seems nonlabored, no significant accessory muscle action noted. Breath sounds clear to auscultation bilaterally and equal noted. No wheezes rales or rhonchi noted. No significant dullness noted on percussion. CHEST: Palpation of the chest wall shows no significant chest wall tenderness. No other significant abnormalities noted. HEART: [place] [employer]CHIT[employer], No PSH, 1/6 FELIPE aortic area, 1/6 hemphill systolic murmur mitral area, no rubs, no gallops. ABDOMEN: Soft, no significant tenderness appreciated, normoactive bowel sounds. No guarding, no rebound. No rigidity noted . No masses appreciated. EXTREMITIES: Pedal pulses are 1-2+, no calf tenderness noted. No clubbing or cyanosis.trace to 1+ pedal edema noted NEUROLOGICAL: Focused neurological exam showed no significant neurologic deficit. Normal speech, no focal weakness appreciated. PSYCH: Normal mood, normal affect. Judgment and insight within normal limits. SKIN: No significant ecchymosis, rash, ulcerations or signs of pruritus noted. MUSCULOSKELETAL EXAM: No significant joint swelling noted. Results Laboratory Results: 11/20/17 05:54 11/20/17 05:54 11/19/17 11/19/17 11/20/17 20:45 20:45 05:54 WBC 10.0 7.6 RBC 5.03 4.79 Hgb 15.8 15.2 Hct 47.3 44.7 MCV 94 93 MCH 31.4 31.8 MCHC 33.4 34.0 RDW 16.5 H 15.9 H Plt Count 139 L 115 L Seg Neutrophils % 65.7 61.6 Lymphocytes % 19.0 23.2 Monocytes % 13.6 H 12.9 Eosinophils % 1.1 1.0 Basophils % 0.6 1.3 Absolute Neutrophils 6.6 4.7 Absolute Lymphocytes 1.9 1.8 Absolute Monocytes 1.4 1.0 Absolute Eosinophils 0.1 0.1 Absolute Basophils 0.1 0.1 Sodium 135.9 L Potassium 3.8 Chloride 104 Carbon Dioxide 27 Anion Gap 5 BUN 15 Creatinine 0.62 Est GFR ( Amer) > 60 Est GFR (Non-Af Amer) > 60 Glucose 69 L Calcium 8.7 Total Bilirubin 1.2 AST 44 ALT 99 H Alkaline Phosphatase 117 Total Protein 5.1 L Albumin 2.6 L 11/20/17 05:54 WBC RBC Hgb Hct MCV MCH MCHC RDW Plt Count Seg Neutrophils % Lymphocytes % Monocytes % Eosinophils % Basophils % Absolute Neutrophils Absolute Lymphocytes Absolute Monocytes Absolute Eosinophils Absolute Basophils Sodium 135.7 L Potassium 4.2 Chloride 103 Carbon Dioxide 28 Anion Gap 5 BUN 15 Creatinine 0.69 Est GFR ( Amer) > 60 Est GFR (Non-Af Amer) > 60 Glucose 78 Calcium 8.6 Total Bilirubin 1.4 H AST 42 ALT 87 H Alkaline Phosphatase 95 Total Protein 4.7 L Albumin 2.4 L 11/13/17 11/13/17 11/13/17 14:44 14:44 19:00 Creatine Kinase 107 CK-MB (CK-2) 6.36 H Troponin I 0.091 NT-Pro-B Natriuret Pep 56601 H 11/13/17 11/13/17 11/14/17 22:25 22:25 06:32 Creatine Kinase 132 71 CK-MB (CK-2) 6.36 H Troponin I 0.102 NT-Pro-B Natriuret Pep 11/14/17 06:32 Creatine Kinase CK-MB (CK-2) 4.00 Troponin I 0.111 NT-Pro-B Natriuret Pep EKG Comments: Shows sinus rhythm, possible LVH without any sustained tachycardia or bradycardia arrhythmias. Twelve-lead EKG reviewed. No significant changes noted. Impressions: Chest/Abdomen CTA 11/13/17 00:00 IMPRESSION: 1. Cardiomegaly. Changes compatible with interstitial edema with bilateral pleural effusions. 2. Aneurysmal dilatation of the ascending thoracic aorta. 3. Bibasilar atelectasis. Focal consolidation superior segment left lower lobe. 4. 8 mm nodular density left lower lobe. According to Fleischner criteria 2017, in high risk patients follow-up CT could be obtained in 6 to 12 months as further evaluation. Assessment & Plan - Diagnosis (1) Acute on chronic systolic heart failure Is this a current diagnosis for this admission?: Yes (2) Aneurysm of ascending aorta Is this a current diagnosis for this admission?: Yes (3) Elevated troponin Is this a current diagnosis for this admission?: Yes (4) Hypotension Qualifiers: Hypotension type: unspecified hypotension type Qualified Code(s): I95.9 - Hypotension, unspecified Is this a current diagnosis for this admission?: Yes (5) Mitral valve regurgitation Qualifiers: Cardiac valve disease etiology: nonrheumatic Qualified Code(s): I34.0 - Nonrheumatic mitral (valve) insufficiency Is this a current diagnosis for this admission?: Yes (6) Cardiomyopathy Qualifiers: Cardiomyopathy type: unspecified Qualified Code(s): I42.9 - Cardiomyopathy , unspecified Is this a current diagnosis for this admission?: Yes (7) COPD (chronic obstructive pulmonary disease) Qualifiers: Emphysema type: unspecified Is this a current diagnosis for this admission?: Yes - Notes Notes: Acute on chronic systolic heart failure: Patient has shown significant gradual improvement. Mitral regurgitation, moderate to severe: Patient informed of periodic follow- up. Aneurysm of the ascending aorta: Currently stable. Patient advised periodic follow-up. Hypertension: Blood pressure holding up. Patient tolerating vasodilator therapy for CHF and cardiomyopathy. Cardiomyopathy: Patient has severe dilated cardiomyopathy. Patient advised to wear a LifeVest. Hypotension: Currently improved. Continue with midodrine therapy. COPD: Currently stable. - Time Time with patient: Greater than 35 minutes - Significant time spent discussing increased risk of sudden cardiac and need for LifeVest application and subsequently permanent defibrillator placement. Patient understands. He has been informed about it a few times during this hospitalization. Application for LifeVest completed and given to the nurse to fax to the [employer]. Hopefully this will be applied prior to his discharge. Patient however and 16 on discharge. Medications reviewed and adjusted accordingly: Yes
== END 2017-11-20 17:25 | disposition home or self-care (01) | DRG 291 ==
LOC: 3W 13:41 → ICU 11-15 21:35 → 3S 11-20 03:05
PROVIDERS: ADMIT Internal Medicine; ATTEND Internal Medicine
PROC: 3E0234Z Introduction of Serum, Toxoid and Vaccine into Muscle, Percutaneous Approach (ICD-10-PCS; principal; 2017-11-20)
DX: I50.23 Acute on chronic systolic (congestive) heart failure (principal); J18.9 Pneumonia, unspecified organism; I42.6 Alcoholic cardiomyopathy; J43.2 Centrilobular emphysema; I71.4 Abdominal aortic aneurysm, without rupture; K70.10 Alcoholic hepatitis without ascites; I34.0 Nonrheumatic mitral (valve) insufficiency; I27.20 Pulmonary hypertension, unspecified; I95.9 Hypotension, unspecified; R79.89 Other specified abnormal findings of blood chemistry; F17.210 Nicotine dependence, cigarettes, uncomplicated; F10.11 Alcohol abuse, in remission; Y90.9 Presence of alcohol in blood, level not specified; Z23 Encounter for immunization
CPT/HCPCS: 36415; 71275; 80048; 80053; 82550; 82553; 82565; 82803; 83735; 83880; 84484; 85025; 85027; 85610; 85730; 90686; 93005; 93010; J0692; J1250; J1265; J1650; J1940; J1956; J3490; J7050; J7060

== ENCOUNTER 2017-11-26 10:55 | Inpatient (IN) | payer SELFPAY ==
--- NOTE | 2017-11-26 11:50 | ER Document Report ---
ED General - General Chief Complaint: Direct Admit/Private MD Stated Complaint: hypotension Mode of Arrival: Wheelchair Information source: Patient, Relative, Dr. Office Notes: 62-year-old male history of severe cardiomyopathy hypotension heart failure presents with complaints of dizziness weakness. Patient was initially supposed to be a direct admit by Dr. Lara however it was noted the patient's blood pressures were 60s over 40s, EKG was performed and changes were noted, patient does have a LifeVest. He denies any shortness of breath at this time TRAVEL OUTSIDE OF THE [place] IN LAST 30 DAYS: No - HPI Onset: Other - 1 month duration per family member Onset/Duration: Persistent Quality of pain: No pain Severity: Moderate Pain Level: Denies Associated symptoms: Weakness Exacerbated by: Standing, Walking Relieved by: Denies Similar symptoms previously: Yes Recently seen / treated by doctor: Yes - Related Data Allergies/Adverse Reactions: No Known Allergies Allergy (Verified 10/15/17 13:10) Past Medical History - Social History Smoking Status: Current Every Day Smoker Cigarette use (# per day): Yes Chew tobacco use (# tins/day): No Smoking Education Provided: No Family History: Malignancy - Past Medical History Cardiac Medical History: Reports: Hx Congestive Heart Failure Pulmonary Medical History: Reports: Hx COPD, Hx Pneumonia Renal/ Medical History: Denies: Hx Peritoneal Dialysis GI Medical History: Reports: Hx Cirrhosis, Hx Hepatitis Infectious Medical History: Reports: Hx Hepatitis Review of Systems - Review of Systems Notes: REVIEW OF SYSTEMS: CONSTITUTIONAL : Denies fever, chills, or sweats. Denies recent illness. EENT: Denies eye, ear, throat, or mouth pain or symptoms. Denies nasal or sinus congestion or discharge. Denies throat, tongue, or mouth swelling or difficulty swallowing. CARDIOVASCULAR: Denies chest pain. Denies palpitations or racing or irregular heart beat. Denies ankle edema. RESPIRATORY: Denies cough, cold, or chest congestion. Denies shortness of breath, difficulty breathing, or wheezing. GASTROINTESTINAL: Denies abdominal pain or distention. Denies nausea, vomiting , or diarrhea. Denies blood in vomitus, stools, or per rectum. Denies black, tarry stools. Denies constipation. GENITOURINARY: Denies difficulty urinating, painful urination, burning, frequency, blood in urine, or discharge. MUSCULOSKELETAL: Denies back or neck pain or stiffness. Denies joint pain or swelling. SKIN: Denies rash, lesions or sores. HEMATOLOGIC : Denies easy bruising or bleeding. LYMPHATIC: Denies swollen, enlarged glands. NEUROLOGICAL: Admits to weakness PSYCHIATRIC: Denies anxiety or stress. Denies depression, suicidal ideation, or homicidal ideation. ALL OTHER SYSTEMS REVIEWED AND NEGATIVE. Dictation was performed using [employer] voice recognition software PHYSICAL EXAMINATION: GENERAL: Frail older than stated age ill-appearing male HEAD: Atraumatic, normocephalic. EYES: Pupils equal round and reactive to light, extraocular movements intact, sclera anicteric, conjunctiva are normal. ENT: Nares patent, oropharynx clear without exudates. Moist mucous membranes. NECK: Normal range of motion, supple without lymphadenopathy LUNGS: Breath sounds clear to auscultation bilaterally and equal. No wheezes rales or rhonchi. HEART: Regular rate and rhythm without murmurs LifeVest noted ABDOMEN: Soft, nontender, nondistended abdomen. No guarding, no rebound. No masses appreciated. Musculoskeletal: Normal range of motion, no pitting or edema. No cyanosis. NEUROLOGICAL: Cranial nerves grossly intact. Normal speech, normal gait. Normal sensory, motor exams PSYCH: Normal mood, normal affect. SKIN: Warm, Dry, normal turgor, no rashes or lesions noted. Physical Exam - Vital signs Vitals: BP 68/39 L 11/26/17 11:49 Course - Re-evaluation Re-evalutation: 11/26/17 12:05 Patient's presentation and EKG findings were concerning for acute ischemia versus CAD, physician in [facility] attempted to speak with mineral industry teacher but they request for the lab work. Patient is hypotensive and even though his congestive heart failure is noted I have to give him some fluid hydration and attempt to increase his blood pressure 11/26/17 12:[address] Lara notified him of the troponin 2.9 with ekgs changes, , I explained i saw the patient since he did not look well upon arrival, dr Frankel with continue admission - Vital Signs Vital signs: Temp Pulse Resp BP Pulse Ox 25 H 89/34 L 92 11/26/17 13:36 11/26/17 13:36 11/26/17 13:36 - Laboratory Result Diagrams: 11/26/17 12:02 11/26/17 12:02 - EKG Interpretation by Mi EKG shows normal: Sinus rhythm, [place], Intervals - Mild ST elevations are noted in leads V2 V3 with depression V5, QRS Complexes Critical Care Note - Critical Care Note Total time excluding time spent on procedures (mins): 34 Comments: 34 minutes of critical care time spent in direct contact evaluating and reevaluating the patient, treating symptoms, reviewing labs and studies and speaking with family and consultants excluding any procedures Discharge - Discharge Clinical Impression: Acute systolic heart failure, NSTEMI (non-ST elevated myocardial infarction) CHF (congestive heart failure) Qualifiers: Heart failure type: systolic Heart failure chronicity: acute on chronic Qualified Code(s): I50.23 - Acute on chronic systolic (congestive) heart failure Hypotension Qualifiers: Hypotension type: unspecified hypotension type Qualified Code(s): I95.9 - Hypotension, unspecified Condition: Critical Disposition: ADMITTED INPATIENT Admitting Provider: [facility] Unit Admitted: ICU
[2017-11-26] MEDS ORDERED: NORMAL SALINE 250 ML IV ONE (11:52)
[2017-11-26 12:18] LABS: ABSOLUTE BASOPHILS # (AUTO) 0.1 10^3/uL (0.0-0.2); ABSOLUTE LYMPHOCYTES (AUTO) 2.1 10^3/uL (0.5-4.7); ABSOLUTE MONOCYTES (AUTO) 0.4 10^3/uL (0.1-1.4); ABSOLUTE NEUT (AUTO) 4.9 10^3/uL (1.7-8.2); BASOPHILS % (AUTO) 0.8 % (0-2); EOSINOPHILS % (AUTO) 0.1 % (0-6); HEMATOCRIT 41.3 % (37.9-51.0); HEMOGLOBIN 13.8 g/dL (13.5-17.0); MEAN CORPUSCULAR HEMOGLOBIN 31.3 pg (27.0-33.4); MEAN CORPUSCULAR HGB CONC 33.5 g/dL (32.0-36.0); MEAN CORPUSCULAR VOLUME 93 fl (80-97); MONOCYTES % (AUTO) 5.8 % (3-13); RED BLOOD COUNT 4.43 10^6/uL (4.35-5.55); RED CELL DISTRIBUTION WIDTH 16.1 % (11.5-14.0); SEGMENTED NEUTROPHILS % (AUTO) 65.3 % (42-78); TOTAL CELLS COUNTED % (AUTO) 100 %; WHITE BLOOD COUNT 7.6 10^3/uL (4.0-10.5)
[2017-11-26] MEDS ORDERED: NOREPINEPHRINE BITARTRATE INJ/PF 4 MG/4 ML SDV IV ONE ×2 (12:33→18:57)
[2017-11-26 12:39] LABS: ALANINE AMINOTRANSFERASE 65 U/L (21-72); ALBUMIN 2.9 g/dL (3.5-5.0); ALKALINE PHOSPHATASE 101 U/L (38-126); ANION GAP 8 (5-19); ASPARTATE AMINO TRANSFERASE 117 U/L (17-59); BILIRUBIN,DIRECT 0.9 mg/dL (0.0-0.4); BLOOD UREA NITROGEN 25 mg/dL (7-20); CALCIUM 8.4 mg/dL (8.4-10.2); CARBON DIOXIDE 26 mmol/L (22-30); CHLORIDE 95 mmol/L (98-107); CREATINE KINASE 455 U/L (55-170); GLUCOSE 91 mg/dL (75-110); POTASSIUM 4.1 mmol/L (3.6-5.0); SODIUM 128.7 mmol/L (137-145); TOTAL PROTEIN 5.7 g/dL (6.3-8.2)
[2017-11-26] MEDS: DEXTROSE 5%-WATER 250 ML with NOREPINEPHRINE BITARTRATE 4 MG IV PRN ×6 (12:40→22:31)
[2017-11-26 12:41] LABS: PLATELET COUNT 70 10^3/uL (150-450)
[2017-11-26 12:49] LABS: CREATINE KINASE MB 3.16 ng/mL (<4.55)
[2017-11-26 12:52] LABS: TROPONIN I 2.96 ng/mL
--- NOTE | 2017-11-26 13:05 | RADIOLOGY REPORT (SQ) ---
EXAM DESCRIPTION: CHEST SINGLE VIEW COMPLETED DATE/TIME: 11/26/2017 12:38 pm REASON FOR STUDY: pit waiting heart failure COMPARISON: None. NUMBER OF VIEWS: One view. TECHNIQUE: Single frontal radiographic view of the chest acquired. LIMITATIONS: None. FINDINGS: LUNGS AND PLEURA: No opacities, masses or pneumothorax. No pleural effusion. MEDIASTINUM AND HILAR STRUCTURES: No masses. Contour normal. HEART AND VASCULAR STRUCTURES: Heart enlarged without failure. Normal vasculature. BONES: No acute findings. HARDWARE: Extensive cardiac hardware. OTHER: No other significant finding. IMPRESSION: HEART ENLARGED WITHOUT FAILURE. NO OTHER SIGNIFICANT RADIOGRAPHIC FINDING IN THE CHEST. TECHNICAL DOCUMENTATION: JOB ID: [id number] [employer]- All Rights Reserved
[2017-11-26] MEDS ORDERED: ASPIRIN 81 MG TABLET, CHEWABLE PO ONE (13:15)
--- NOTE | 2017-11-26 15:16 | EKG REPORT ---
SEVERITY:- ABNORMAL ECG - SINUS RHYTHM LEFT ATRIAL ABNORMALITY LEFT ANTERIOR FASCICULAR BLOCK LVH WITH SECONDARY REPOLARIZATION ABNORMALITY ANTERIOR Q WAVES, POSSIBLY DUE TO LVH : Confirmed by: Malena Craven 26-Nov-2017 15:15:29
--- NOTE | 2017-11-26 17:41 | PDOC H&P ---
History of Present Illness Admission Date/PCP: 11/26/17 11:12 ARLENE DIAZ MD History of Present Illness: SONA JAQUEZ is a 62 year old male , he has a history of chronic systolic heart failure,, severe mitral valve regurgitation, aneurysm of ascending aorta, pulmonary hypertension, he came to the office today with his brother because of progressive shortness of breath , the blood pressure recorded in the office was 60 systolic, he was admitted directly to the hospital through the emergency room. He was recently admitted in this hospital on 11/13/2017 for evaluation of acute systolic heart failure, on that admission he was discharged with a LifeVest which is still have on him, he also had hypotension was treated at the time with vasopressors, he was seen by the truck dock material mover the last time he was in the hospital and it was recommended that he be transferred to a tertiary care to be considered for ventricular assist device but patient declined that option. I spoke to [facility] to have patient transferred to their facility Past Medical History Cardiac Medical History: Reports: Other - Chronic systolic heart failure, pulmonary hypertension Pulmonary Medical History: Reports: Chronic Obstructive Pulmonary Disease (COPD) , Pneumonia GI Medical History: Reports: Cirrhosis, Hepatitis, Other - Alcohol liver disease Social History Smoking Status: Current Every Day Smoker Frequency of Alcohol Use: None Hx Recreational Drug Use: No Drugs: None Hx Prescription Drug Abuse: No Family History Family History: Malignancy Parental Family History Reviewed: Yes Children Family History Reviewed: Yes Sibling(s) Family History Reviewed.: Yes Medication/Allergy Home Medications: Albuterol Sulfate [Ventolin HFA MDI 18 GM] 2 puff IH Q6HP PRN 11/26/17 Carvedilol [Coreg 3.125 mg Tablet] 3.125 mg PO DAILY 11/26/17 Midodrine HCl [Proamatine 5 mg Tablet] 5 mg PO TID 11/26/17 Pentoxifylline [Trental 400 mg Tablet.sa] 400 mg PO TID 11/26/17 Sacubitril/Valsartan [Entresto 24 mg-26 mg Tablet] 1 tab PO BID 11/26/17 Spironolactone [Aldactone 25 mg Tablet] 25 mg PO DAILY 11/26/17 Thiamine HCl [Thiamine 100 mg Tablet] 100 mg PO DAILY 11/26/17 Torsemide [Demadex 20 mg Tablet] 20 mg PO DAILY 11/26/17 Umeclidinium Brm/Vilanterol Tr [Anoro Ellipta 62.5-25 Mcg INH] 1 puff IH DAILY 11/26/17 Allergies/Adverse Reactions: No Known Allergies Allergy (Verified 10/15/17 13:10) Review of Systems Constitutional: PRESENT: fatigue Eyes: ABSENT: visual disturbances Ears: ABSENT: hearing changes Cardiovascular: PRESENT: dyspnea on exertion Respiratory: PRESENT: cough, dyspnea Gastrointestinal: ABSENT: abdominal pain, constipation, diarrhea, hematemesis, hematochezia, nausea, vomiting Genitourinary: ABSENT: dysuria, hematuria Musculoskeletal: ABSENT: joint swelling Integumentary: ABSENT: rash, wounds Neurological: ABSENT: abnormal gait, abnormal speech, confusion, dizziness, focal weakness, syncope Psychiatric: ABSENT: anxiety, depression, homidical ideation, suicidal ideation Endocrine: ABSENT: cold intolerance, heat intolerance, menstrual abnormalities, polydipsia, polyuria Hematologic/Lymphatic: ABSENT: easy bleeding, easy bruising, lymphadenopathy Physical Exam Vital Signs: Temp Pulse Resp BP Pulse Ox 26 H 74/42 L 92 11/26/17 16:37 11/26/17 16:30 11/26/17 16:01 General appearance: PRESENT: mild distress Head exam: PRESENT: atraumatic, normocephalic Eye exam: PRESENT: PERRLA Neck exam: PRESENT: full ROM Respiratory exam: PRESENT: crackles Cardiovascular exam: PRESENT: RRR, +S1, +S2, systolic murmur GI/Abdominal exam: PRESENT: soft Rectal exam: PRESENT: deferred Extremities exam: PRESENT: pedal edema Neurological exam: PRESENT: alert, CN II-XII grossly intact Results Laboratory Results: 11/26/17 12:02 11/26/17 12:02 11/26/17 11/26/17 11/26/17 12:02 12:02 12:02 WBC 7.6 RBC 4.43 Hgb 13.8 Hct 41.3 MCV 93 MCH 31.3 MCHC 33.5 RDW 16.1 H Plt Count 70 L Seg Neutrophils % 65.3 Lymphocytes % 28.0 Monocytes % 5.8 Eosinophils % 0.1 Basophils % 0.8 Absolute Neutrophils 4.9 Absolute Lymphocytes 2.1 Absolute Monocytes 0.4 Absolute Eosinophils 0.0 Absolute Basophils 0.1 Sodium 128.7 L Potassium 4.1 Chloride 95 L Carbon Dioxide 26 Anion Gap 8 BUN 25 H Creatinine 1.18 Est GFR ( Amer) > 60 Est GFR (Non-Af Amer) > 60 Glucose 91 Calcium 8.4 Total Bilirubin 1.0 AST 117 H ALT 65 Alkaline Phosphatase 101 Total Protein 5.7 L Albumin 2.9 L TSH 12.00 H 11/26/17 11/26/17 12:02 12:02 Creatine Kinase 455 H CK-MB (CK-2) 3.16 Troponin I 2.960 NT-Pro-B Natriuret Pep 63616 H Impressions: Chest X-Ray 11/26/17 11:32 IMPRESSION: HEART ENLARGED WITHOUT FAILURE. NO OTHER SIGNIFICANT RADIOGRAPHIC FINDING IN THE CHEST. Assessment & Plan - Diagnosis (1) Acute systolic heart failure Is this a current diagnosis for this admission?: Yes (2) Alcoholic liver disease Is this a current diagnosis for this admission?: Yes (3) Hypotension Qualifiers: Hypotension type: unspecified hypotension type Qualified Code(s): I95.9 - Hypotension, unspecified Is this a current diagnosis for this admission?: Yes Plan: Patient is started on Levophed, to be transferred to [facility] (4) Elevated troponin Is this a current diagnosis for this admission?: Yes
--- NOTE | 2017-11-26 17:51 | PDOC TRANSFER SUMMARY ---
General Admission Date/PCP: 11/26/17 11:12 ARLENE DIAZ MD Admission Date: 11/26/17 Transfer Date: 11/26/17 Accepting Facility: [facility] - Transfer Diagnosis (1) Acute systolic heart failure Is this a current diagnosis for this admission?: Yes (2) Alcoholic liver disease Is this a current diagnosis for this admission?: Yes (3) Hypotension Is this a current diagnosis for this admission?: Yes (4) Elevated troponin Is this a current diagnosis for this admission?: Yes - Transfer Medications Home Medications: Albuterol Sulfate [Ventolin HFA MDI 18 GM] 2 puff IH Q6HP PRN 11/26/17 Carvedilol [Coreg 3.125 mg Tablet] 3.125 mg PO DAILY 11/26/17 Midodrine HCl [Proamatine 5 mg Tablet] 5 mg PO TID 11/26/17 Pentoxifylline [Trental 400 mg Tablet.sa] 400 mg PO TID 11/26/17 Sacubitril/Valsartan [Entresto 24 mg-26 mg Tablet] 1 tab PO BID 11/26/17 Spironolactone [Aldactone 25 mg Tablet] 25 mg PO DAILY 11/26/17 Thiamine HCl [Thiamine 100 mg Tablet] 100 mg PO DAILY 11/26/17 Torsemide [Demadex 20 mg Tablet] 20 mg PO DAILY 11/26/17 Umeclidinium Brm/Vilanterol Tr [Anoro Ellipta 62.5-25 Mcg INH] 1 puff IH DAILY 11/26/17 Transfer Medications: Current Medications Aspirin (Aspirin 81 Mg Chewable Tablet) 81 mg PO DAILY [facility] Stop: 12/27/17 09:59 Norepinephrine Bitartrate 4 mg (/ Dextrose) 250 mls @ 0 mls/hr IV CONTINUOUS PRN; Protocol; Titrate PRN Reason: THIS MED IS NOT "PRN" Stop: 12/26/17 12:38 Last Admin: 11/26/17 12:40 Dose: 4 mg - Allergies Allergies/Adverse Reactions: No Known Allergies Allergy (Verified 10/15/17 13:10) Hospital Course Hospital Course: Patient was admitted for the management of hypotension associated with acute systolic heart failure, presently on Levophed, he be transferred to [facility] Physical Exam Vital Signs: Temp Pulse Resp BP Pulse Ox 18 105/59 L 92 11/26/17 17:31 11/26/17 17:31 11/26/17 16:01 Eye exam: PRESENT: PERRLA Mouth exam: PRESENT: moist Respiratory exam: PRESENT: rales Cardiovascular exam: PRESENT: RRR, +S1, +S2 Vascular exam: PRESENT: normal capillary refill GI/Abdominal exam: PRESENT: normal bowel sounds, soft Rectal exam: PRESENT: deferred Extremities exam: PRESENT: full ROM Neurological exam: PRESENT: alert Psychiatric exam: PRESENT: appropriate affect, normal mood Skin exam: PRESENT: dry, intact, warm Results Laboratory Results: 11/26/17 12:02 11/26/17 12:02 11/26/17 11/26/17 11/26/17 12:02 12:02 12:02 WBC 7.6 RBC 4.43 Hgb 13.8 Hct 41.3 MCV 93 MCH 31.3 MCHC 33.5 RDW 16.1 H Plt Count 70 L Seg Neutrophils % 65.3 Lymphocytes % 28.0 Monocytes % 5.8 Eosinophils % 0.1 Basophils % 0.8 Absolute Neutrophils 4.9 Absolute Lymphocytes 2.1 Absolute Monocytes 0.4 Absolute Eosinophils 0.0 Absolute Basophils 0.1 Sodium 128.7 L Potassium 4.1 Chloride 95 L Carbon Dioxide 26 Anion Gap 8 BUN 25 H Creatinine 1.18 Est GFR ( Amer) > 60 Est GFR (Non-Af Amer) > 60 Glucose 91 Calcium 8.4 Total Bilirubin 1.0 AST 117 H ALT 65 Alkaline Phosphatase 101 Total Protein 5.7 L Albumin 2.9 L TSH 12.00 H 11/26/17 11/26/17 12:02 12:02 Creatine Kinase 455 H CK-MB (CK-2) 3.16 Troponin I 2.960 NT-Pro-B Natriuret Pep 02118 H Impressions: Chest X-Ray 11/26/17 11:32 IMPRESSION: HEART ENLARGED WITHOUT FAILURE. NO OTHER SIGNIFICANT RADIOGRAPHIC FINDING IN THE CHEST.
[2017-11-26 20:12] LABS: CREATINE KINASE MB 2.8 ng/mL (<4.55); TROPONIN I 2.11 ng/mL
[2017-11-27 00:30] LABS: APPEARANCE,URINE CLOUDY; BILIRUBIN,URINE NEGATIVE (NEGATIVE); COLOR,URINE AMBER; GLUCOSE, URINE NEGATIVE (NEGATIVE); KETONES,URINE NEGATIVE (NEGATIVE); LEUKOCYTE ESTERASE,URINE NEGATIVE (NEGATIVE); NITRITE,URINE NEGATIVE (NEGATIVE); PROTEIN,URINE >=500 mg/dL (NEGATIVE); UROBILINOGEN,URINE NEGATIVE mg/dL (<2.0)
[2017-11-27] MEDS: DEXTROSE 5%-WATER 250 ML with NOREPINEPHRINE BITARTRATE 4 MG IV PRN ×8 (02:33→14:17)
[2017-11-27 04:27] LABS: CREATINE KINASE MB 1.99 ng/mL (<4.55)
[2017-11-27 04:34] LABS: TROPONIN I 2.59 ng/mL
[2017-11-27] MEDS ORDERED: ACETAMINOPHEN 650 MG SUPP.RECT PR ONE (05:12)
[2017-11-27 05:24] LABS: ARTERIAL BLOOD BASE EXCESS -4.5 mmol/L; ARTERIAL BLOOD H2CO3 0.87 mmol/L (1.05-1.35); ARTERIAL BLOOD HCO3 18.5 mmol/L (20-26); ARTERIAL BLOOD O2 SATURATION 97.6 % (94-98); ARTERIAL BLOOD PH 7.42 (7.35-7.45); ARTERIAL BLOOD PO2 96.4 mmHg (80-100); ARTERIAL BLOOD TOTAL CO2 19.4 mmol/L (23-27)
[2017-11-27 05:30] LABS: ARTERIAL BLOOD FIO2 100%
[2017-11-27] MEDS ORDERED: PHENYLEPHRINE HCL INJ/PF 10 MG/1 ML SDV ONE (07:10)
[2017-11-27] MEDS ORDERED: DOBUTAMINE HCL/D5W 500 MG/250 ML RTUINJ IV ONE (07:15)
[2017-11-27] MEDS: DOBUTAMINE HCL/D5W 500 MG/250 ML RTUINJ IV PRN (07:52)
[2017-11-27] MEDS ORDERED: PHENTOLAMINE MESYLATE INJ 5 MG VIAL SUBCUT ONE (08:30)
[2017-11-27] MEDS ORDERED: ASPIRIN 81 MG TABLET, CHEWABLE PO SCH (10:00)
[2017-11-27 12:38] LABS: ANTICHROMATIN AB <0.2 AI (0.0-0.9); CENTROMERE B AB <0.2 AI (0.0-0.9); JO-1 ANTIBODY (ANACOMP) <0.2 AI (0.0-0.9); RNP AB <0.2 AI (0.0-0.9); SCLERODERMA-70 ANTIBODIES <0.2 AI (0.0-0.9); SJOGREN'S ANTI-SS-B AB <0.2 AI (0.0-0.9); SJOGREN'S SS-A ANTIBODY <0.2 AI (0.0-0.9); SMITH AB ANA <0.2 AI (0.0-0.9)
[2017-11-27 12:55] LABS: DNA DOUBLE STRAND ANTIBODY ANA 1 IU/mL (0-9)
[2017-11-27 14:52] LABS: HEMATOCRIT 43.3 % (37.9-51.0); HEMOGLOBIN 14.5 g/dL (13.5-17.0); MEAN CORPUSCULAR HEMOGLOBIN 31.5 pg (27.0-33.4); MEAN CORPUSCULAR HGB CONC 33.5 g/dL (32.0-36.0); MEAN CORPUSCULAR VOLUME 94 fl (80-97); RED BLOOD COUNT 4.61 10^6/uL (4.35-5.55); RED CELL DISTRIBUTION WIDTH 16.5 % (11.5-14.0); WHITE BLOOD COUNT 8.1 10^3/uL (4.0-10.5)
[2017-11-27] MEDS ORDERED: LEVOTHYROXINE SODIUM 0.05 MG TABLET PO ONE (15:00)
[2017-11-27 15:10] LABS: ALANINE AMINOTRANSFERASE 65 U/L (21-72); ALBUMIN 2.7 g/dL (3.5-5.0); ALKALINE PHOSPHATASE 96 U/L (38-126); ANION GAP 10 (5-19); ASPARTATE AMINO TRANSFERASE 97 U/L (17-59); BILIRUBIN,DIRECT 0.6 mg/dL (0.0-0.4); BLOOD UREA NITROGEN 34 mg/dL (7-20); CARBON DIOXIDE 22 mmol/L (22-30); CHLORIDE 94 mmol/L (98-107); GLUCOSE 124 mg/dL (75-110); POTASSIUM 4.8 mmol/L (3.6-5.0); SODIUM 125.9 mmol/L (137-145)
[2017-11-27 15:14] LABS: PLATELET COUNT 54 10^3/uL (150-450)
[2017-11-27 15:17] LABS: ABSOLUTE LYMPHOCYTES# (MANUAL) 1.8 10^3/uL (0.5-4.7); ABSOLUTE MONOCYTES # (MANUAL) 0.5 10^3/uL (0.1-1.4); ABSOLUTE NEUTROPHILS# (MANUAL) 5.8 10^3/uL (1.7-8.2); BASOPHILS % (MANUAL) 0 % (0-2); EOSINOPHILS % (MANUAL) 0 % (0-6); LYMPHOCYTES % (MANUAL) 22 % (13-45); MONOCYTES % (MANUAL) 6 % (3-13); SEGMENTED NEUTROPHILS % (MAN) 72 % (42-78); TOTAL CELLS COUNTED 100
[2017-11-27 15:20] LABS: ANISOCYTOSIS 1+; PLATELET COMMENT DECREASED; POIKILOCYTOSIS SLIGHT; TOXIC GRANULATION SLIGHT
--- NOTE | 2017-11-27 16:26 | PDOC PROGRESS REPORT ---
Subjective Progress Note for:: 11/27/17 Subjective:: Patient was supposed to be transferred to [facility] yesterday but no bed was available. The blood pressure was extremely low requiring vasopressor with intravenous norepinephrine, presently on maximal dose of norepinephrine. I also spoke to [facility] but the transfer . He also requires positive pressure ventilation with BiPAP to support breathing, he has multiple comorbid conditions including COPD, cardiomyopathy, alcohol liver disease. I had a long discussion with patient's POA, the next of kin, the brother, he was made a DNR status today. Conditions remain critical, we are still waiting for a bed at [facility]. Reason For Visit: HYPOTENSION,SEVERE,CARDIOMYOPATHY Physical Exam Vital Signs: Temp Pulse Resp BP Pulse Ox 103.0 F H 25 H 140/62 H 99 11/27/17 05:00 11/27/17 15:39 11/27/17 12:16 11/27/17 15:39 Intake & Output 11/26/17 11/27/17 11/28/17 06:59 06:59 06:59 Weight 67.132 kg General appearance: PRESENT: severe distress Eye exam: PRESENT: PERRLA Respiratory exam: PRESENT: decreased breath sounds Cardiovascular exam: PRESENT: +S1, +S2, systolic murmur GI/Abdominal exam: PRESENT: soft Neurological exam: PRESENT: alert Results Laboratory Results: 11/27/17 03:54 11/27/17 03:54 11/26/17 11/27/17 11/27/17 22:30 03:54 03:54 WBC 8.1 RBC 4.61 Hgb 14.5 Hct 43.3 MCV 94 MCH 31.5 MCHC 33.5 RDW 16.5 H Plt Count 54 L Seg Neutrophils % Not Reportable Lymphocytes % Not Reportable Monocytes % Not Reportable Eosinophils % Not Reportable Basophils % Not Reportable Absolute Neutrophils Not Reportable Absolute Lymphocytes Not Reportable Absolute Monocytes Not Reportable Absolute Eosinophils Not Reportable Absolute Basophils Not Reportable Carbonic Acid HCO3/H2CO3 Ratio ABG pH ABG pCO2 ABG pO2 ABG HCO3 ABG O2 Saturation ABG Base Excess FiO2 Sodium 125.9 L Potassium 4.8 Chloride 94 L Carbon Dioxide 22 Anion Gap 10 BUN 34 H Creatinine 1.25 Est GFR ( Amer) > 60 Est GFR (Non-Af Amer) 59 L Glucose 124 H Calcium 8.0 L Total Bilirubin 1.0 AST 97 H ALT 65 Alkaline Phosphatase 96 Total Protein 5.0 L Albumin 2.7 L Urine Color [place] Urine Appearance CLOUDY Urine pH 5.0 Ur Specific [place] 1.020 Urine Protein >=500 H Urine Glucose (UA) NEGATIVE Urine Ketones NEGATIVE Urine Blood SMALL H Urine Nitrite NEGATIVE Ur Leukocyte Esterase NEGATIVE Urine WBC (Auto) 16 Urine RBC (Auto) 1 11/27/17 05:00 WBC RBC Hgb Hct MCV MCH MCHC RDW Plt Count Seg Neutrophils % Lymphocytes % Monocytes % Eosinophils % Basophils % Absolute Neutrophils Absolute Lymphocytes Absolute Monocytes Absolute Eosinophils Absolute Basophils Carbonic Acid 0.87 L HCO3/H2CO3 Ratio 21:1 ABG pH 7.42 ABG pCO2 29.0 L ABG pO2 96.4 ABG HCO3 18.5 L ABG O2 Saturation 97.6 ABG Base Excess -4.5 FiO2 100% Sodium Potassium Chloride Carbon Dioxide Anion Gap BUN Creatinine Est GFR ( Amer) Est GFR (Non-Af Amer) Glucose Calcium Total Bilirubin AST ALT Alkaline Phosphatase Total Protein Albumin Urine Color Urine Appearance Urine pH Ur Specific [place] Urine Protein Urine Glucose (UA) Urine Ketones Urine Blood Urine Nitrite Ur Leukocyte Esterase Urine WBC (Auto) Urine RBC (Auto) 11/26/17 11/26/17 11/26/17 12:02 12:02 19:37 Creatine Kinase 455 H 412 H CK-MB (CK-2) 3.16 Troponin I 2.960 NT-Pro-B Natriuret Pep 03871 H 11/26/17 11/27/17 11/27/17 19:37 03:54 03:54 Creatine Kinase 405 H CK-MB (CK-2) 2.80 1.99 Troponin I 2.110 2.590 NT-Pro-B Natriuret Pep Impressions: Chest X-Ray 11/26/17 11:32 IMPRESSION: HEART ENLARGED WITHOUT FAILURE. NO OTHER SIGNIFICANT RADIOGRAPHIC FINDING IN THE CHEST. Assessment & Plan - Diagnosis (1) Acute systolic heart failure Is this a current diagnosis for this admission?: Yes (2) Alcoholic liver disease Is this a current diagnosis for this admission?: Yes (3) Hypotension Qualifiers: Hypotension type: unspecified hypotension type Qualified Code(s): I95.9 - Hypotension, unspecified Is this a current diagnosis for this admission?: Yes (4) Elevated troponin Is this a current diagnosis for this admission?: Yes (5) Acute respiratory failure Qualifiers: Respiratory failure complication: unspecified whether with hypoxia or hypercapnia Qualified Code(s): J96.00 - Acute respiratory failure, unspecified whether with hypoxia or hypercapnia Is this a current diagnosis for this admission?: Yes Plan: Continue positive pressure ventilation, get ABG
[2017-11-27 22:02] LABS: URINE CREATININE 307.1 mg/dL (22-328)
[2017-11-27 22:03] LABS: UR PRO/CREAT RATIO RESULT 2.6 mg/mg (0.0-0.2); URINE PROTEIN 804.9 mg/dL (<12)
[2017-11-28] MEDS: DEXTROSE 5%-WATER 250 ML with NOREPINEPHRINE BITARTRATE 4 MG IV PRN ×2 (09:13)
[2017-11-28] MEDS: DOBUTAMINE HCL/D5W 500 MG/250 ML RTUINJ IV PRN (09:25)
[2017-11-28 09:58] LABS: HEMATOCRIT 48.1 % (37.9-51.0); MEAN CORPUSCULAR HEMOGLOBIN 30.7 pg (27.0-33.4); MEAN CORPUSCULAR HGB CONC 33.3 g/dL (32.0-36.0); MEAN CORPUSCULAR VOLUME 92 fl (80-97); RED BLOOD COUNT 5.22 10^6/uL (4.35-5.55); RED CELL DISTRIBUTION WIDTH 16.1 % (11.5-14.0); WHITE BLOOD COUNT 10.3 10^3/uL (4.0-10.5)
[2017-11-28 10:18] VITALS: BP 102/53
[2017-11-28 10:35] LABS: PLATELET COUNT 68 10^3/uL (150-450)
[2017-11-28 10:38] LABS: ABSOLUTE LYMPHOCYTES# (MANUAL) 3.3 10^3/uL (0.5-4.7); ABSOLUTE MONOCYTES # (MANUAL) 0.3 10^3/uL (0.1-1.4); ABSOLUTE NEUTROPHILS# (MANUAL) 6.6 10^3/uL (1.7-8.2); ANISOCYTOSIS 1+; BAND NEUTROPHILS % (MANUAL) 2 % (3-5); BASOPHILS % (MANUAL) 0 % (0-2); EOSINOPHILS % (MANUAL) 1 % (0-6); LYMPHOCYTES % (MANUAL) 29 % (13-45); MONOCYTES % (MANUAL) 3 % (3-13); NUCLEATED RED BLOOD CELLS 1 /100 WBC (0); PLATELET COMMENT DECREASED; PLATELET LARGE PRESENT; SEGMENTED NEUTROPHILS % (MAN) 62 % (42-78); TOTAL CELLS COUNTED 100; TOXIC GRANULATION 2+; TOXIC VACUOLATION PRESENT
--- NOTE | 2017-12-05 15:42 | Progress Note ---
Provider Note Provider Note: He does not have non-ST elevated SD, he has severe cardiomyopathy, the elevated troponin is most likely from a leak because of his heart disease and not from SD , he always has elevated troponin
== END 2017-11-28 10:56 | disposition short-term general hospital (02) | DRG 292 ==
LOC: ER 10:55 → EH 11:12
PROVIDERS: ADMIT Internal Medicine; ATTEND Internal Medicine
DX: I50.23 Acute on chronic systolic (congestive) heart failure (principal); I42.9 Cardiomyopathy, unspecified; B18.9 Chronic viral hepatitis, unspecified; I95.9 Hypotension, unspecified; R74.8 Abnormal levels of other serum enzymes; K70.30 Alcoholic cirrhosis of liver without ascites; F10.10 Alcohol abuse, uncomplicated; F17.200 Nicotine dependence, unspecified, uncomplicated; J44.9 Chronic obstructive pulmonary disease, unspecified; Z78.1 Physical restraint status; Z66 Do not resuscitate; I27.20 Pulmonary hypertension, unspecified; Z97.8 Presence of other specified devices
CPT/HCPCS: 36415; 36600; 71045; 80048; 80053; 80076; 81001; 82550; 82553; 82570; 82803; 83880; 84156; 84443; 84484; 85025; 86225; 86235; 93005; 93010; 94660; J1250; J2760; J3490; J7050; J7060